=== PATIENT | male | born 1940 | race Two or more races ===

== ENCOUNTER 2017-07-17 21:00 | Inpatient (IN) | payer OTHER, MEDICARE ==
[~2017-07-17] VITALS: Ht 170.2 cm; Wt 88.8 kg
[~2017-07-17 21:00] MED LIST: ALBU90OI6 INH; AMLO5 PO; ASPI81CH PO; ATECHL PO; FLUO10 PO; Glucophage PO; HYDACE5 PO; IPRAOI INH; LISI20 PO; MONT10T PO; NIAC500ER PO; SIMV40 PO; TEMA30 PO; TOCO400 PO
[2017-07-17 21:41] LABS: BASOPHILS ABSOLUTE AUTO 0.05 K/mm3 (0.00-0.23); BASOPHILS PERCENT AUTO 1 % (0-2); EOSINOPHILS ABSOLUTE AUTO 0.52 K/mm3 (0.00-0.68); EOSINOPHILS PERCENT AUTO 8 % (0-6); Hematocrit 35.9 % (37.0-53.0); Hemoglobin 11.9 g/dL (13.5-17.5); IMMATURE GRAN ABSOLUTE AUTO 0.04 K/mm3 (0.00-0.10); IMMATURE GRAN PERCENT AUTO 1 % (0-1); LYMPHOCYTES ABSOLUTE AUTO 1.34 K/mm3 (0.84-5.20); LYMPHOCYTES PERCENT AUTO 21 % (21-46); MONOCYTES ABSOLUTE AUTO 0.82 K/mm3 (0.16-1.47); MONOCYTES PERCENT AUTO 13 % (4-13); Mean Corpuscular HGB 29.5 pg (26.0-34.0); Mean Corpuscular HGB Conc 33.1 g/dL (31.5-36.5); Mean Corpuscular Volume 89 fL (80-100); Mean Platelet Volume 11.1 fL (9.1-12.4); NEUTROPHILS ABSOLUTE AUTO 3.58 K/mm3 (1.96-9.15); NEUTROPHILS PERCENT AUTO 56 % (41-73); Platelet Count 201 K/mm3 (150-400); RDW Coefficient Variation 13.8 % (11.7-14.2); RDW Standard Deviation 44.3 fL (35.1-46.3); Red Blood Cell Count 4.03 M/mm3 (4.30-5.90); White Blood Cell Count 6.35 K/mm3 (4.00-11.30)
[2017-07-17 22:01] LABS: Albumin, Blood 3.2 g/dL (3.4-5.0); Albumin/Globulin Ratio 0.9 (0.8-1.8); Bilirubin, Total 0.3 mg/dL (0.1-1.0); Bun/Creatinine Ratio 22.2 (12.0-20.0); Calcium, Blood 8.7 mg/dL (8.5-10.1); Creatinine, Blood 1.35 mg/dL (0.60-1.20); Globulin, Blood 3.7 g/dL (2.2-4.0); Total Protein, Blood 6.9 g/dL (6.4-8.2); Troponin I 0.019 ng/mL (0.000-0.040)
[2017-07-18 00:29] LABS: Magnesium, Blood 1.7 mg/dL (1.6-2.4)
[2017-07-18 02:31] LABS: PCO2 Arterial 55.2 mmHg (35-45); PO2 Arterial 155 mmHg (80-100); pH Blood Arterial 7.22 (7.35-7.45)
[2017-07-18 05:17] LABS: BASOPHILS ABSOLUTE AUTO 0.04 K/mm3 (0.00-0.23); BASOPHILS PERCENT AUTO 1 % (0-2); EOSINOPHILS ABSOLUTE AUTO 0.01 K/mm3 (0.00-0.68); EOSINOPHILS PERCENT AUTO 0 % (0-6); Hematocrit 36.8 % (37.0-53.0); Hemoglobin 12.1 g/dL (13.5-17.5); IMMATURE GRAN ABSOLUTE AUTO 0.05 K/mm3 (0.00-0.10); IMMATURE GRAN PERCENT AUTO 1 % (0-1); LYMPHOCYTES ABSOLUTE AUTO 0.56 K/mm3 (0.84-5.20); LYMPHOCYTES PERCENT AUTO 8 % (21-46); MONOCYTES ABSOLUTE AUTO 0.15 K/mm3 (0.16-1.47); MONOCYTES PERCENT AUTO 2 % (4-13); Mean Corpuscular HGB 28.9 pg (26.0-34.0); Mean Corpuscular HGB Conc 32.9 g/dL (31.5-36.5); Mean Corpuscular Volume 88 fL (80-100); Mean Platelet Volume 10.8 fL (9.1-12.4); NEUTROPHILS ABSOLUTE AUTO 6.14 K/mm3 (1.96-9.15); NEUTROPHILS PERCENT AUTO 88 % (41-73); Platelet Count 211 K/mm3 (150-400); RDW Coefficient Variation 13.8 % (11.7-14.2); Red Blood Cell Count 4.18 M/mm3 (4.30-5.90); White Blood Cell Count 6.95 K/mm3 (4.00-11.30)
[2017-07-18 05:37] LABS: Albumin, Blood 3.3 g/dL (3.4-5.0); Anion Gap 8 mmol/L (6-16); Blood Urea Nitrogen 31 mg/dL (8-24); Bun/Creatinine Ratio 24.4 (12.0-20.0); CO2, Blood 22 mmol/L (21-32); Chloride, Blood 109 mmol/L (98-108); Creatinine, Blood 1.27 mg/dL (0.60-1.20); Glomerular Filtration Rate 59 (60-); Glucose, Blood 389 mg/dL (70-99); Phosphorus, Blood 3.2 mg/dL (2.5-4.9); Potassium, Blood 5.1 mmol/L (3.5-5.5); Sodium, Blood 139 mmol/L (136-145)
[2017-07-18 08:53] LABS: PCO2 Arterial 32 mmHg (35-45); PO2 Arterial 95 mmHg (80-100)
[2017-07-18 12:15] LABS: Glucose, Blood 501 mg/dL (70-99)
[2017-07-19 10:20] LABS: BASOPHILS ABSOLUTE AUTO 0.02 K/mm3 (0.00-0.23); BASOPHILS PERCENT AUTO 0 % (0-2); EOSINOPHILS PERCENT AUTO 0 % (0-6); Hematocrit 36.7 % (37.0-53.0); IMMATURE GRAN ABSOLUTE AUTO 0.18 K/mm3 (0.00-0.10); IMMATURE GRAN PERCENT AUTO 1 % (0-1); LYMPHOCYTES ABSOLUTE AUTO 0.82 K/mm3 (0.84-5.20); LYMPHOCYTES PERCENT AUTO 5 % (21-46); MONOCYTES ABSOLUTE AUTO 1.78 K/mm3 (0.16-1.47); MONOCYTES PERCENT AUTO 11 % (4-13); Mean Corpuscular HGB 28.6 pg (26.0-34.0); Mean Corpuscular HGB Conc 32.7 g/dL (31.5-36.5); Mean Corpuscular Volume 88 fL (80-100); Mean Platelet Volume 11.1 fL (9.1-12.4); NEUTROPHILS PERCENT AUTO 83 % (41-73); Platelet Count 244 K/mm3 (150-400); RDW Coefficient Variation 13.9 % (11.7-14.2); RDW Standard Deviation 43.5 fL (35.1-46.3); Red Blood Cell Count 4.19 M/mm3 (4.30-5.90)
[2017-07-19 10:36] LABS: International Normalized Ratio 1.13; Prothrombin Time Results 11.8 Sec (9.7-11.5)
[2017-07-19 10:39] LABS: Bun/Creatinine Ratio 37.1 (12.0-20.0); Creatinine, Blood 1.32 mg/dL (0.60-1.20); Potassium, Blood 4.4 mmol/L (3.5-5.5)
[2017-07-19 10:57] LABS: Troponin I 26.7 ng/mL (0.000-0.040)
[2017-07-19 16:56] LABS: PCO2 Arterial 36.6 mmHg (35-45); pH Blood Arterial 7.39 (7.35-7.45)
[2017-07-19 23:18] LABS: Influenza A Negative (NEGATIVE); Influenza B Negative (NEGATIVE)
[2017-07-20 03:43] LABS: BASOPHILS ABSOLUTE AUTO 0.02 K/mm3 (0.00-0.23); BASOPHILS PERCENT AUTO 0 % (0-2); EOSINOPHILS PERCENT AUTO 0 % (0-6); Hematocrit 34.2 % (37.0-53.0); Hemoglobin 11.5 g/dL (13.5-17.5); IMMATURE GRAN ABSOLUTE AUTO 0.08 K/mm3 (0.00-0.10); IMMATURE GRAN PERCENT AUTO 1 % (0-1); LYMPHOCYTES PERCENT AUTO 6 % (21-46); MONOCYTES ABSOLUTE AUTO 1.37 K/mm3 (0.16-1.47); MONOCYTES PERCENT AUTO 11 % (4-13); Mean Corpuscular HGB 29.2 pg (26.0-34.0); Mean Corpuscular HGB Conc 33.6 g/dL (31.5-36.5); Mean Corpuscular Volume 87 fL (80-100); Mean Platelet Volume 11.5 fL (9.1-12.4); NEUTROPHILS ABSOLUTE AUTO 10.34 K/mm3 (1.96-9.15); NEUTROPHILS PERCENT AUTO 83 % (41-73); Platelet Count 227 K/mm3 (150-400); RDW Standard Deviation 44.1 fL (35.1-46.3); Red Blood Cell Count 3.94 M/mm3 (4.30-5.90); White Blood Cell Count 12.51 K/mm3 (4.00-11.30)
[2017-07-20 04:14] LABS: Albumin, Blood 3.1 g/dL (3.4-5.0); Albumin/Globulin Ratio 0.8 (0.8-1.8); Bilirubin, Total 0.6 mg/dL (0.1-1.0); Bun/Creatinine Ratio 36.9 (12.0-20.0); Creatinine, Blood 1.41 mg/dL (0.60-1.20); Globulin, Blood 3.7 g/dL (2.2-4.0); Potassium, Blood 4.5 mmol/L (3.5-5.5); Total Protein, Blood 6.8 g/dL (6.4-8.2)
[2017-07-21 05:23] LABS: BASOPHILS ABSOLUTE AUTO 0.01 K/mm3 (0.00-0.23); BASOPHILS PERCENT AUTO 0 % (0-2); EOSINOPHILS PERCENT AUTO 0 % (0-6); Hemoglobin 11.5 g/dL (13.5-17.5); IMMATURE GRAN ABSOLUTE AUTO 0.06 K/mm3 (0.00-0.10); IMMATURE GRAN PERCENT AUTO 1 % (0-1); LYMPHOCYTES ABSOLUTE AUTO 0.53 K/mm3 (0.84-5.20); LYMPHOCYTES PERCENT AUTO 6 % (21-46); MONOCYTES ABSOLUTE AUTO 0.99 K/mm3 (0.16-1.47); MONOCYTES PERCENT AUTO 12 % (4-13); Mean Corpuscular HGB 29.3 pg (26.0-34.0); Mean Corpuscular HGB Conc 33.8 g/dL (31.5-36.5); Mean Corpuscular Volume 87 fL (80-100); Mean Platelet Volume 11.4 fL (9.1-12.4); NEUTROPHILS ABSOLUTE AUTO 6.96 K/mm3 (1.96-9.15); NEUTROPHILS PERCENT AUTO 81 % (41-73); Platelet Count 197 K/mm3 (150-400); RDW Coefficient Variation 13.5 % (11.7-14.2); RDW Standard Deviation 42.5 fL (35.1-46.3); Red Blood Cell Count 3.93 M/mm3 (4.30-5.90); White Blood Cell Count 8.55 K/mm3 (4.00-11.30)
[2017-07-21 05:59] LABS: Albumin, Blood 2.8 g/dL (3.4-5.0); Albumin/Globulin Ratio 0.7 (0.8-1.8); Bilirubin, Total 0.4 mg/dL (0.1-1.0); Bun/Creatinine Ratio 43.2 (12.0-20.0); Calcium, Blood 8.9 mg/dL (8.5-10.1); Creatinine, Blood 1.69 mg/dL (0.60-1.20); Globulin, Blood 3.9 g/dL (2.2-4.0); Potassium, Blood 4.7 mmol/L (3.5-5.5); Total Protein, Blood 6.7 g/dL (6.4-8.2)
[2017-07-22 04:18] LABS: Bun/Creatinine Ratio 46.4 (12.0-20.0); Calcium, Blood 8.7 mg/dL (8.5-10.1); Creatinine, Blood 1.81 mg/dL (0.60-1.20); Potassium, Blood 4.1 mmol/L (3.5-5.5)
[2017-07-22 21:05] LABS: Glucose, Blood 517 mg/dL (70-99)
[2017-07-23 04:51] LABS: Hematocrit 36.3 % (37.0-53.0); Hemoglobin 12.2 g/dL (13.5-17.5)
[2017-07-23 05:16] LABS: Magnesium, Blood 2.3 mg/dL (1.6-2.4)
[2017-07-23 05:18] LABS: Albumin, Blood 2.8 g/dL (3.4-5.0); Anion Gap 10 mmol/L (6-16); Blood Urea Nitrogen 76 mg/dL (8-24); CO2, Blood 24 mmol/L (21-32); Calcium, Blood 8.7 mg/dL (8.5-10.1); Chloride, Blood 101 mmol/L (98-108); Creatinine, Blood 1.52 mg/dL (0.60-1.20); Glomerular Filtration Rate 48 (60-); Glucose, Blood 342 mg/dL (70-99); Phosphorus, Blood 3.9 mg/dL (2.5-4.9); Potassium, Blood 4.5 mmol/L (3.5-5.5); Sodium, Blood 135 mmol/L (136-145)
[2017-07-24 05:06] LABS: BASOPHILS ABSOLUTE AUTO 0.02 K/mm3 (0.00-0.23); BASOPHILS PERCENT AUTO 0 % (0-2); EOSINOPHILS ABSOLUTE AUTO 0.76 K/mm3 (0.00-0.68); EOSINOPHILS PERCENT AUTO 9 % (0-6); Hematocrit 38.9 % (37.0-53.0); IMMATURE GRAN ABSOLUTE AUTO 0.05 K/mm3 (0.00-0.10); IMMATURE GRAN PERCENT AUTO 1 % (0-1); LYMPHOCYTES ABSOLUTE AUTO 1.14 K/mm3 (0.84-5.20); LYMPHOCYTES PERCENT AUTO 13 % (21-46); MONOCYTES ABSOLUTE AUTO 1.18 K/mm3 (0.16-1.47); MONOCYTES PERCENT AUTO 14 % (4-13); Mean Corpuscular HGB 28.5 pg (26.0-34.0); Mean Corpuscular HGB Conc 33.4 g/dL (31.5-36.5); Mean Corpuscular Volume 85 fL (80-100); Mean Platelet Volume 11.5 fL (9.1-12.4); NEUTROPHILS PERCENT AUTO 64 % (41-73); Platelet Count 242 K/mm3 (150-400); RDW Coefficient Variation 13.2 % (11.7-14.2); RDW Standard Deviation 40.7 fL (35.1-46.3); Red Blood Cell Count 4.56 M/mm3 (4.30-5.90); White Blood Cell Count 8.75 K/mm3 (4.00-11.30)
[2017-07-24 05:20] LABS: Anion Gap 8 mmol/L (6-16); Blood Urea Nitrogen 57 mg/dL (8-24); Bun/Creatinine Ratio 41.9 (12.0-20.0); CO2, Blood 26 mmol/L (21-32); Calcium, Blood 9.1 mg/dL (8.5-10.1); Chloride, Blood 99 mmol/L (98-108); Creatinine, Blood 1.36 mg/dL (0.60-1.20); Glomerular Filtration Rate 54 (60-); Glucose, Blood 362 mg/dL (70-99); Magnesium, Blood 1.8 mg/dL (1.6-2.4); Potassium, Blood 5.2 mmol/L (3.5-5.5); Sodium, Blood 133 mmol/L (136-145)
[2017-07-24] MEDS ORDERED: TIOT18 INH (16:45)
[2017-07-24] MEDS ORDERED: LOSA50 PO (16:45)
[2017-07-24] MEDS ORDERED: Novolog Fl100 UNIT/1 INJ (16:47)
[2017-07-24] MEDS ORDERED: LEVEMIR FL100 UNIT/1 SC (16:48)
[2017-07-24] MEDS ORDERED: CLOP75 PO (16:49)
[2017-07-24] MEDS ORDERED: FURO40 PO (16:49)
[2017-07-24] MEDS ORDERED: METO50ER PO (16:50)
[2017-07-24] MEDS ORDERED: POTA10T PO (16:51)
[2017-07-24] MEDS ORDERED: Nitrostat0.4 MG SL (16:52)
[2018-01-27] MEDS ORDERED: DULO60 PO (12:13)
[2018-01-27] MEDS ORDERED: Isosorbide Mono30 MG PO (12:15)
[2018-02-26] MEDS ORDERED: NEBI5 PO (09:41)
[2018-04-23] MEDS ORDERED: Lantus100 UNIT/1 SC (18:27)
[2018-04-23] MEDS ORDERED: INSULANPEN SC (18:28)
[2018-04-23] MEDS ORDERED: TOCO1000 PO (18:33)
[2018-04-23] MEDS ORDERED: MEGARED OMEGA-1 EAC1 PO (18:34)
[2018-04-24] MEDS ORDERED: Humalog100 UNIT/3 SC ×2 (13:03)
[2018-04-24] MEDS ORDERED: INSULANPEN SC (13:17)
== END 2017-07-24 16:59 | disposition home or self-care (01) | DRG 280 ==
LOC: ER 21:00 → MEDS 07-18 00:12 → PCU 07-18 00:12 → MEDS 07-22 13:45
PROVIDERS: Emergency Medicine; Family Medicine; Internal Medicine; Internal Medicine Interventional Cardiology; Internal Medicine Nephrology
PROC: B2161ZZ Fluoroscopy of Right and Left Heart using Low Osmolar Contrast (ICD-10-PCS; principal; 2017-07-19)
PROC: B2111ZZ Fluoroscopy of Multiple Coronary Arteries using Low Osmolar Contrast (ICD-10-PCS; 2017-07-19)
PROC: 5A09457 Assistance with Respiratory Ventilation, 24-96 Consecutive Hours, Continuous Positive Airway Pressure (ICD-10-PCS; 2017-07-19)
DX: I21.4 Non-ST elevation (NSTEMI) myocardial infarction (principal); J96.02 Acute respiratory failure with hypercapnia; I50.33 Acute on chronic diastolic (congestive) heart failure; N17.9 Acute kidney failure, unspecified; J96.01 Acute respiratory failure with hypoxia; J12.1 Respiratory syncytial virus pneumonia; E88.09 Other disorders of plasma-protein metabolism, not elsewhere classified; I07.1 Rheumatic tricuspid insufficiency; I13.0 Hypertensive heart and chronic kidney disease with heart failure and stage 1 through stage 4 chronic kidney disease, or unspecified chronic kidney disease; J44.1 Chronic obstructive pulmonary disease with (acute) exacerbation; E87.1 Hypo-osmolality and hyponatremia; J44.0 Chronic obstructive pulmonary disease with (acute) lower respiratory infection; I27.29 Other secondary pulmonary hypertension; E11.65 Type 2 diabetes mellitus with hyperglycemia; E11.22 Type 2 diabetes mellitus with diabetic chronic kidney disease; N18.3 Chronic kidney disease, stage 3 (moderate); E78.5 Hyperlipidemia, unspecified; I25.10 Atherosclerotic heart disease of native coronary artery without angina pectoris; G47.33 Obstructive sleep apnea (adult) (pediatric); D63.1 Anemia in chronic kidney disease; I27.81 Cor pulmonale (chronic); I25.2 Old myocardial infarction; Z95.1 Presence of aortocoronary bypass graft; Z87.891 Personal history of nicotine dependence; Z79.82 Long term (current) use of aspirin; Z79.899 Other long term (current) drug therapy; Z95.5 Presence of coronary angioplasty implant and graft; Z88.5 Allergy status to narcotic agent; Z88.8 Allergy status to other drugs, medicaments and biological substances; Z79.84 Long term (current) use of oral hypoglycemic drugs
CPT/HCPCS: 36415; 36600; 51702; 71045; 71046; 76770; 80048; 80053; 80069; 82803; 82947; 83735; 83880; 84484; 85014; 85018; 85025; 85610; 85730; 87804; 87807; 93005; 93010; 93306; 93455; 94640; 94660; 94761; 94762; 97161; 97165; 97530; 99152; 99153; 99285; C1760; C1769; G8978; G8979; G8980; G8987; G8988; G8989; J0696; J1100; J1644; J1815; J1940; J2250; J2270; J2920; J2930; J3010; J7030; J7040; Q9967

== ENCOUNTER → 2017-08-05 | Outpatient (CLI) | payer MEDICARE, OTHER ==
[~2017-08-05] MED LIST changes: +ATOR40TA PO; +Amiodarone HCl200 MG PO; +CALCIUM + VITAMIN D PO; +CHOL10002 PO; +CLOP75 PO; +Cod Liver Oil1 EAC2 PO; +DILT60 PO; +DULO60 PO; +FURO40 PO; +Fish Oil 10001000 MG PO; +Humalog100 UNIT/3 SC; +INSULANPEN SC; +Isosorbide Mono30 MG PO; +LEVEMIR FL100 UNIT/1 SC; +LORATADINE PO; +LOSA50 PO; +Lantus100 UNIT/1 SC; +MAGOXI400 PO; +MEGARED OMEGA-1 EAC1 PO; +METO50ER PO; +MOME220I INH; +NEBI5 PO; +Nitrostat0.4 MG SL; +Novolog Fl100 UNIT/1 INJ; +PANT40 PO; +POTA10T PO; +TEMA7.5 PO; +TIOT18 INH; +TOCO1000 PO; +TRAM50 PO; +XARELTO15 MG PO
[2017-08-05 11:50] LABS: Protein, Urine Quantitative 14.3 mg/dL (0.0-11.9)
[2017-08-05 11:52] LABS: Microalbumin, Urine Quant. 56.3 mg/L (0.000-20.000)
== END | disposition home or self-care (01) ==
LOC: LAB EV 09:32
PROVIDERS: Internal Medicine Nephrology
DX: N18.3 Chronic kidney disease, stage 3 (moderate) (principal); D63.1 Anemia in chronic kidney disease; N25.81 Secondary hyperparathyroidism of renal origin; E55.9 Vitamin D deficiency, unspecified; D51.8 Other vitamin B12 deficiency anemias; D52.8 Other folate deficiency anemias; D50.9 Iron deficiency anemia, unspecified
CPT/HCPCS: 81050; 82043; 84156

== ENCOUNTER 2018-01-27 11:45 | Inpatient (IN) | payer OTHER, MEDICARE ==
[~2018-01-27] VITALS: Ht 170.2 cm; Wt 80.2 kg
[~2018-01-27 11:45] MED LIST changes: -ATOR40TA PO; -Amiodarone HCl200 MG PO; -CALCIUM + VITAMIN D PO; -CHOL10002 PO; -Cod Liver Oil1 EAC2 PO; -DILT60 PO; -DULO60 PO; -Fish Oil 10001000 MG PO; -Glucophage PO; -Humalog100 UNIT/3 SC; -INSULANPEN SC; -Isosorbide Mono30 MG PO; -LORATADINE PO; -Lantus100 UNIT/1 SC; -MAGOXI400 PO; -MEGARED OMEGA-1 EAC1 PO; +METF850 PO; -MOME220I INH; -NEBI5 PO; -PANT40 PO; -TEMA7.5 PO; -TOCO1000 PO; -TRAM50 PO; -XARELTO15 MG PO
[2018-01-27] MEDS ORDERED: ATOR40TA PO (12:12)
[2018-01-27] MEDS ORDERED: DULO30 PO (12:13)
[2018-01-27 12:15] LABS: BASOPHILS ABSOLUTE AUTO 0.06 K/mm3 (0.00-0.23); BASOPHILS PERCENT AUTO 1 % (0-2); EOSINOPHILS ABSOLUTE AUTO 0.69 K/mm3 (0.00-0.68); EOSINOPHILS PERCENT AUTO 9 % (0-6); Hematocrit 37.4 % (37.0-53.0); Hemoglobin 12.1 g/dL (13.5-17.5); IMMATURE GRAN ABSOLUTE AUTO 0.02 K/mm3 (0.00-0.10); IMMATURE GRAN PERCENT AUTO 0 % (0-1); LYMPHOCYTES ABSOLUTE AUTO 1.66 K/mm3 (0.84-5.20); LYMPHOCYTES PERCENT AUTO 23 % (21-46); MONOCYTES ABSOLUTE AUTO 0.86 K/mm3 (0.16-1.47); MONOCYTES PERCENT AUTO 12 % (4-13); Mean Corpuscular HGB 26.9 pg (26.0-34.0); Mean Corpuscular HGB Conc 32.4 g/dL (31.5-36.5); Mean Corpuscular Volume 83 fL (80-100); Mean Platelet Volume 10.9 fL (9.1-12.4); NEUTROPHILS ABSOLUTE AUTO 4.06 K/mm3 (1.96-9.15); NEUTROPHILS PERCENT AUTO 55 % (41-73); Platelet Count 239 K/mm3 (150-400); RDW Coefficient Variation 14.9 % (11.7-14.2); White Blood Cell Count 7.35 K/mm3 (4.00-11.30)
[2018-01-27] MEDS ORDERED: ISOMON20 PO (12:15)
[2018-01-27] MEDS ORDERED: MAGOXI400 PO (12:16)
[2018-01-27] MEDS ORDERED: PANT40 PO (12:17)
[2018-01-27 12:31] LABS: Anion Gap 7 mmol/L (6-16); Blood Urea Nitrogen 23 mg/dL (8-24); CO2, Blood 25 mmol/L (21-32); Calcium, Blood 8.5 mg/dL (8.5-10.1); Chloride, Blood 108 mmol/L (98-108); Creatinine, Blood 1.21 mg/dL (0.60-1.20); Glomerular Filtration Rate >60 (60-); Glucose, Blood 192 mg/dL (70-99); Sodium, Blood 140 mmol/L (136-145); Troponin I 0.265 ng/mL (0.000-0.040)
[2018-01-27 12:39] LABS: International Normalized Ratio 1.14; Prothrombin Time Results 11.7 Sec (9.7-11.5)
[2018-01-27 22:05] LABS: Magnesium, Blood 1.6 mg/dL (1.6-2.4)
[2018-01-28 06:14] LABS: Hematocrit 39.6 % (37.0-53.0); Hemoglobin 13.1 g/dL (13.5-17.5); Mean Corpuscular HGB 27.5 pg (26.0-34.0); Mean Corpuscular HGB Conc 33.1 g/dL (31.5-36.5); Mean Corpuscular Volume 83 fL (80-100); Mean Platelet Volume 10.4 fL (9.1-12.4); Platelet Count 214 K/mm3 (150-400); RDW Coefficient Variation 14.7 % (11.7-14.2); RDW Standard Deviation 44.5 fL (35.1-46.3); Red Blood Cell Count 4.77 M/mm3 (4.30-5.90); White Blood Cell Count 7.28 K/mm3 (4.00-11.30)
[2018-01-28 06:37] LABS: Alanine Aminotransfer (ALT/SGP 41 U/L (12-78); Albumin, Blood 3.3 g/dL (3.4-5.0); Albumin/Globulin Ratio 0.9 (0.8-1.8); Alk Phos 109 U/L (50-136); Anion Gap 9 mmol/L (6-16); Aspartate Aminotrans (AST/SGOT 39 U/L (12-37); Bilirubin, Total 0.5 mg/dL (0.1-1.0); Blood Urea Nitrogen 22 mg/dL (8-24); Bun/Creatinine Ratio 17.7 (12.0-20.0); CO2, Blood 25 mmol/L (21-32); Calcium, Blood 9.1 mg/dL (8.5-10.1); Chloride, Blood 105 mmol/L (98-108); Creatinine, Blood 1.24 mg/dL (0.60-1.20); Globulin, Blood 3.5 g/dL (2.2-4.0); Glomerular Filtration Rate >60 (60-); Glucose, Blood 203 mg/dL (70-99); Potassium, Blood 4.3 mmol/L (3.5-5.5); Sodium, Blood 139 mmol/L (136-145); Total Protein, Blood 6.8 g/dL (6.4-8.2)
[2018-01-28 06:45] LABS: Digoxin (Lanoxin) 1.37 ug/mL (0.80-2.00)
[2018-01-28] MEDS ORDERED: CALCIUM + VITAMIN D PO (11:42)
[2018-01-28] MEDS ORDERED: CHOL10002 PO (11:43)
[2018-01-28] MEDS ORDERED: Cod Liver Oil1 EAC2 PO (11:44)
[2018-01-28] MEDS ORDERED: Fish Oil 10001000 MG PO (11:45)
[2018-01-28] MEDS ORDERED: FURO40 PO (11:45)
[2018-01-28] MEDS ORDERED: LORATADINE PO (11:49)
[2018-01-28] MEDS ORDERED: MOME220I INH (11:52)
[2018-01-28] MEDS ORDERED: INSULANPEN SC (13:41)
[2018-01-29 00:23] LABS: BASOPHILS ABSOLUTE AUTO 0.06 K/mm3 (0.00-0.23); BASOPHILS PERCENT AUTO 1 % (0-2); EOSINOPHILS ABSOLUTE AUTO 0.72 K/mm3 (0.00-0.68); EOSINOPHILS PERCENT AUTO 11 % (0-6); IMMATURE GRAN ABSOLUTE AUTO 0.01 K/mm3 (0.00-0.10); IMMATURE GRAN PERCENT AUTO 0 % (0-1); LYMPHOCYTES ABSOLUTE AUTO 0.85 K/mm3 (0.84-5.20); LYMPHOCYTES PERCENT AUTO 13 % (21-46); MONOCYTES ABSOLUTE AUTO 0.84 K/mm3 (0.16-1.47); MONOCYTES PERCENT AUTO 13 % (4-13); Mean Corpuscular HGB 27.4 pg (26.0-34.0); Mean Corpuscular HGB Conc 33.3 g/dL (31.5-36.5); Mean Corpuscular Volume 82 fL (80-100); Mean Platelet Volume 10.4 fL (9.1-12.4); NEUTROPHILS ABSOLUTE AUTO 3.96 K/mm3 (1.96-9.15); NEUTROPHILS PERCENT AUTO 62 % (41-73); Platelet Count 231 K/mm3 (150-400); RDW Coefficient Variation 14.5 % (11.7-14.2); RDW Standard Deviation 43.6 fL (35.1-46.3); Red Blood Cell Count 4.74 M/mm3 (4.30-5.90); White Blood Cell Count 6.44 K/mm3 (4.00-11.30)
[2018-01-29 00:37] LABS: Creatinine, Blood 1.61 mg/dL (0.60-1.20); Potassium, Blood 4.2 mmol/L (3.5-5.5)
[2018-01-30 05:03] LABS: Bun/Creatinine Ratio 23.9 (12.0-20.0); Calcium, Blood 8.8 mg/dL (8.5-10.1); Creatinine, Blood 1.63 mg/dL (0.60-1.20); Potassium, Blood 4.4 mmol/L (3.5-5.5)
[2018-01-31] MEDS ORDERED: DILT60 PO (17:31)
[2018-01-31] MEDS ORDERED: XARELTO15 MG PO (17:34)
== END 2018-01-31 18:00 | disposition home or self-care (01) | DRG 310 ==
LOC: ER 11:45 → PCU 15:21
PROVIDERS: Emergency Medicine; Family Medicine; Student in an Organized Health Care Education/Training Program
DX: I48.91 Unspecified atrial fibrillation (principal); E11.65 Type 2 diabetes mellitus with hyperglycemia; Z79.4 Long term (current) use of insulin; I25.10 Atherosclerotic heart disease of native coronary artery without angina pectoris; I10 Essential (primary) hypertension; K21.9 Gastro-esophageal reflux disease without esophagitis; E11.319 Type 2 diabetes mellitus with unspecified diabetic retinopathy without macular edema; F17.210 Nicotine dependence, cigarettes, uncomplicated; J44.9 Chronic obstructive pulmonary disease, unspecified; E78.5 Hyperlipidemia, unspecified; G47.33 Obstructive sleep apnea (adult) (pediatric); F32.9 Major depressive disorder, single episode, unspecified; F43.10 Post-traumatic stress disorder, unspecified
CPT/HCPCS: 36415; 71046; 80048; 80053; 80162; 82947; 83735; 84443; 84484; 85025; 85027; 85610; 85730; 93005; 93010; 94640; 94762; 96365; 96375; 99285-25; J1160; J1644; J1815

== ENCOUNTER 2018-02-26 02:51 | Inpatient (IN) | payer MEDICARE, OTHER ==
[~2018-02-26] VITALS: Ht 170.2 cm; Wt 86.6 kg
[~2018-02-26 02:51] MED LIST changes: +ATOR40TA PO; +CALCIUM + VITAMIN D PO; +CHOL10002 PO; +Cod Liver Oil1 EAC2 PO; +DILT60 PO; +DULO30 PO; +Fish Oil 10001000 MG PO; +INSULANPEN SC; +ISOMON20 PO; +LORATADINE PO; +MAGOXI400 PO; +MOME220I INH; +PANT40 PO; +XARELTO15 MG PO
[2018-02-26 03:24] LABS: BASOPHILS ABSOLUTE AUTO 0.06 K/mm3 (0.00-0.23); BASOPHILS PERCENT AUTO 1 % (0-2); EOSINOPHILS ABSOLUTE AUTO 0.64 K/mm3 (0.00-0.68); EOSINOPHILS PERCENT AUTO 9 % (0-6); Hemoglobin 12.1 g/dL (13.5-17.5); IMMATURE GRAN ABSOLUTE AUTO 0.03 K/mm3 (0.00-0.10); IMMATURE GRAN PERCENT AUTO 0 % (0-1); LYMPHOCYTES ABSOLUTE AUTO 2.07 K/mm3 (0.84-5.20); LYMPHOCYTES PERCENT AUTO 29 % (21-46); MONOCYTES ABSOLUTE AUTO 0.86 K/mm3 (0.16-1.47); MONOCYTES PERCENT AUTO 12 % (4-13); Mean Corpuscular HGB 27.3 pg (26.0-34.0); Mean Corpuscular HGB Conc 32.7 g/dL (31.5-36.5); Mean Corpuscular Volume 84 fL (80-100); Mean Platelet Volume 10.5 fL (9.1-12.4); NEUTROPHILS ABSOLUTE AUTO 3.61 K/mm3 (1.96-9.15); NEUTROPHILS PERCENT AUTO 50 % (41-73); Platelet Count 288 K/mm3 (150-400); RDW Coefficient Variation 14.6 % (11.7-14.2); RDW Standard Deviation 44.2 fL (35.1-46.3); Red Blood Cell Count 4.43 M/mm3 (4.30-5.90); White Blood Cell Count 7.27 K/mm3 (4.00-11.30)
[2018-02-26 03:46] LABS: Albumin, Blood 3.4 g/dL (3.4-5.0); Albumin/Globulin Ratio 0.9 (0.8-1.8); Bilirubin, Total 0.4 mg/dL (0.1-1.0); Bun/Creatinine Ratio 17.4 (12.0-20.0); Calcium, Blood 8.8 mg/dL (8.5-10.1); Creatinine, Blood 1.49 mg/dL (0.60-1.20); Globulin, Blood 3.7 g/dL (2.2-4.0); Potassium, Blood 4.5 mmol/L (3.5-5.5); Total Protein, Blood 7.1 g/dL (6.4-8.2); Troponin I 0.079 ng/mL (0.000-0.040)
[2018-02-26] MEDS ORDERED: TEMA7.5 PO (09:40)
[2018-02-26] MEDS ORDERED: TRAM50 PO (09:40)
[2018-02-26] MEDS ORDERED: NEBI10 PO (09:41)
== END 2018-02-26 16:58 | disposition home or self-care (01) | DRG 310 ==
LOC: ER 02:51 → PCU 06:17
PROVIDERS: Emergency Medicine
PROC: 5A2204Z Restoration of Cardiac Rhythm, Single (ICD-10-PCS; principal; 2018-02-26)
DX: I48.92 Unspecified atrial flutter (principal); I25.10 Atherosclerotic heart disease of native coronary artery without angina pectoris; I10 Essential (primary) hypertension; E11.65 Type 2 diabetes mellitus with hyperglycemia; G47.33 Obstructive sleep apnea (adult) (pediatric); J44.9 Chronic obstructive pulmonary disease, unspecified; E78.00 Pure hypercholesterolemia, unspecified; D75.1 Secondary polycythemia; Z68.29 Body mass index [BMI] 29.0-29.9, adult; E66.9 Obesity, unspecified; Z95.1 Presence of aortocoronary bypass graft; Z88.6 Allergy status to analgesic agent; Z88.5 Allergy status to narcotic agent; Z88.8 Allergy status to other drugs, medicaments and biological substances; Z87.891 Personal history of nicotine dependence; Z79.84 Long term (current) use of oral hypoglycemic drugs; Z79.4 Long term (current) use of insulin; Z79.02 Long term (current) use of antithrombotics/antiplatelets; Z79.899 Other long term (current) drug therapy
CPT/HCPCS: 36415; 36416; 71046; 80053; 82947; 84484; 85025; 93005; 93010; J1815; J2250; J3010

== ENCOUNTER 2018-03-15 03:27 | Inpatient (IN) | payer MEDICARE, OTHER ==
[~2018-03-15] VITALS: Ht 170.2 cm; Wt 82.1 kg
[~2018-03-15 03:27] MED LIST changes: +Glucophage PO; -ISOMON20 PO; +Isosorbide Mono30 MG PO; -METF850 PO; +NEBI5 PO; +TEMA7.5 PO; +TRAM50 PO
[2018-03-15 04:19] LABS: BASOPHILS ABSOLUTE AUTO 0.06 K/mm3 (0.00-0.23); BASOPHILS PERCENT AUTO 1 % (0-2); EOSINOPHILS ABSOLUTE AUTO 0.66 K/mm3 (0.00-0.68); EOSINOPHILS PERCENT AUTO 9 % (0-6); Hematocrit 39.2 % (37.0-53.0); Hemoglobin 12.7 g/dL (13.5-17.5); IMMATURE GRAN ABSOLUTE AUTO 0.03 K/mm3 (0.00-0.10); IMMATURE GRAN PERCENT AUTO 0 % (0-1); LYMPHOCYTES ABSOLUTE AUTO 1.61 K/mm3 (0.84-5.20); LYMPHOCYTES PERCENT AUTO 23 % (21-46); MONOCYTES ABSOLUTE AUTO 0.94 K/mm3 (0.16-1.47); MONOCYTES PERCENT AUTO 13 % (4-13); Mean Corpuscular HGB 27.4 pg (26.0-34.0); Mean Corpuscular HGB Conc 32.4 g/dL (31.5-36.5); Mean Corpuscular Volume 85 fL (80-100); Mean Platelet Volume 10.7 fL (9.1-12.4); NEUTROPHILS ABSOLUTE AUTO 3.82 K/mm3 (1.96-9.15); NEUTROPHILS PERCENT AUTO 54 % (41-73); Platelet Count 226 K/mm3 (150-400); RDW Coefficient Variation 14.2 % (11.7-14.2); RDW Standard Deviation 43.4 fL (35.1-46.3); Red Blood Cell Count 4.64 M/mm3 (4.30-5.90); White Blood Cell Count 7.12 K/mm3 (4.00-11.30)
[2018-03-15 04:46] LABS: Albumin, Blood 3.6 g/dL (3.4-5.0); Albumin/Globulin Ratio 0.9 (0.8-1.8); Bilirubin, Total 0.4 mg/dL (0.1-1.0); Bun/Creatinine Ratio 28.5 (12.0-20.0); Calcium, Blood 8.9 mg/dL (8.5-10.1); Creatinine, Blood 1.51 mg/dL (0.60-1.20); Globulin, Blood 3.8 g/dL (2.2-4.0); Potassium, Blood 4.4 mmol/L (3.5-5.5); Total Protein, Blood 7.4 g/dL (6.4-8.2); Troponin I 0.045 ng/mL (0.000-0.040)
[2018-03-16 04:35] LABS: BASOPHILS ABSOLUTE AUTO 0.07 K/mm3 (0.00-0.23); BASOPHILS PERCENT AUTO 1 % (0-2); EOSINOPHILS ABSOLUTE AUTO 0.84 K/mm3 (0.00-0.68); EOSINOPHILS PERCENT AUTO 10 % (0-6); Hematocrit 40.6 % (37.0-53.0); Hemoglobin 13.2 g/dL (13.5-17.5); IMMATURE GRAN ABSOLUTE AUTO 0.03 K/mm3 (0.00-0.10); IMMATURE GRAN PERCENT AUTO 0 % (0-1); LYMPHOCYTES ABSOLUTE AUTO 1.96 K/mm3 (0.84-5.20); LYMPHOCYTES PERCENT AUTO 24 % (21-46); MONOCYTES ABSOLUTE AUTO 1.02 K/mm3 (0.16-1.47); MONOCYTES PERCENT AUTO 13 % (4-13); Mean Corpuscular HGB 26.7 pg (26.0-34.0); Mean Corpuscular HGB Conc 32.5 g/dL (31.5-36.5); Mean Platelet Volume 11.7 fL (9.1-12.4); NEUTROPHILS ABSOLUTE AUTO 4.24 K/mm3 (1.96-9.15); NEUTROPHILS PERCENT AUTO 52 % (41-73); Platelet Count 240 K/mm3 (150-400); RDW Coefficient Variation 14.4 % (11.7-14.2); RDW Standard Deviation 41.9 fL (35.1-46.3); Red Blood Cell Count 4.94 M/mm3 (4.30-5.90); White Blood Cell Count 8.16 K/mm3 (4.00-11.30)
[2018-03-16 05:00] LABS: Bun/Creatinine Ratio 24.3 (12.0-20.0); Calcium, Blood 9.2 mg/dL (8.5-10.1); Creatinine, Blood 1.4 mg/dL (0.60-1.20); Potassium, Blood 4.4 mmol/L (3.5-5.5)
[2018-03-16 05:01] LABS: Troponin I 0.309 ng/mL (0.000-0.040)
[2018-03-16 05:10] LABS: Mean Corpuscular Volume 82 fL (80-100)
[2018-03-16] MEDS ORDERED: Amiodarone HCl200 MG PO (16:53)
== END 2018-03-16 17:15 | disposition home or self-care (01) | DRG 309 ==
LOC: ER 03:27 → ICUW 09:08 → PCU 09:08
PROVIDERS: Emergency Medicine; Internal Medicine
PROC: 5A2204Z Restoration of Cardiac Rhythm, Single (ICD-10-PCS; principal; 2018-03-16)
DX: I48.4 Atypical atrial flutter (principal); I24.9 Acute ischemic heart disease, unspecified; N17.9 Acute kidney failure, unspecified; I13.0 Hypertensive heart and chronic kidney disease with heart failure and stage 1 through stage 4 chronic kidney disease, or unspecified chronic kidney disease; I50.32 Chronic diastolic (congestive) heart failure; I25.10 Atherosclerotic heart disease of native coronary artery without angina pectoris; E11.65 Type 2 diabetes mellitus with hyperglycemia; D45 Polycythemia vera; E11.22 Type 2 diabetes mellitus with diabetic chronic kidney disease; N18.9 Chronic kidney disease, unspecified; G47.33 Obstructive sleep apnea (adult) (pediatric); Z79.4 Long term (current) use of insulin; Z79.01 Long term (current) use of anticoagulants; Z87.891 Personal history of nicotine dependence
CPT/HCPCS: 36415; 71046; 80048; 80053; 82947; 83690; 83735; 83880; 84484; 85025; 90686; 92960; 93005; 93010; 93306; 94640; 94762; 96365; 96366; 99152; 99285-25; G0008; J0282; J1815; J2250; J3010; J7060

== ENCOUNTER 2018-09-18 03:15 | Emergency (ER) | payer MEDICARE, OTHER ==
[~2018-09-18] VITALS: Ht 170.2 cm; Wt 86.2 kg
[~2018-09-18 03:15] MED LIST changes: +Amiodarone HCl200 MG PO; -DULO30 PO; +DULO60 PO; +Humalog100 UNIT/3 SC; +Lantus100 UNIT/1 SC; +MEGARED OMEGA-1 EAC1 PO; +TOCO1000 PO
== END 2018-09-18 05:20 | disposition home or self-care (01) ==
LOC: ER 03:15
DX: R04.0 Epistaxis (principal); I10 Essential (primary) hypertension; E78.00 Pure hypercholesterolemia, unspecified; Z88.5 Allergy status to narcotic agent; Z88.6 Allergy status to analgesic agent; Z88.8 Allergy status to other drugs, medicaments and biological substances; Z79.899 Other long term (current) drug therapy; Z79.02 Long term (current) use of antithrombotics/antiplatelets; Z79.4 Long term (current) use of insulin; Z87.891 Personal history of nicotine dependence
CPT/HCPCS: 30903; 99283-25

== ENCOUNTER 2018-10-06 04:58 | Inpatient (IN) | payer MEDICARE, OTHER ==
[~2018-10-06] VITALS: Ht 170.2 cm; Wt 82.3 kg
[2018-10-06 05:17] LABS: BASOPHILS ABSOLUTE AUTO 0.01 K/mm3 (0.00-0.23); BASOPHILS PERCENT AUTO 0 % (0-2); EOSINOPHILS PERCENT AUTO 0 % (0-6); Hematocrit 39.2 % (37.0-53.0); Hemoglobin 12.6 g/dL (13.5-17.5); IMMATURE GRAN ABSOLUTE AUTO 0.05 K/mm3 (0.00-0.10); IMMATURE GRAN PERCENT AUTO 1 % (0-1); LYMPHOCYTES ABSOLUTE AUTO 0.58 K/mm3 (0.84-5.20); LYMPHOCYTES PERCENT AUTO 8 % (21-46); MONOCYTES ABSOLUTE AUTO 0.24 K/mm3 (0.16-1.47); MONOCYTES PERCENT AUTO 3 % (4-13); Mean Corpuscular HGB 28.6 pg (26.0-34.0); Mean Corpuscular HGB Conc 32.1 g/dL (31.5-36.5); Mean Corpuscular Volume 89 fL (80-100); Mean Platelet Volume 11.1 fL (9.1-12.4); NEUTROPHILS ABSOLUTE AUTO 6.17 K/mm3 (1.96-9.15); NEUTROPHILS PERCENT AUTO 88 % (41-73); Platelet Count 223 K/mm3 (150-400); RDW Coefficient Variation 14.6 % (11.7-14.2); RDW Standard Deviation 47.2 fL (35.1-46.3); White Blood Cell Count 7.05 K/mm3 (4.00-11.30)
[2018-10-06 05:37] LABS: Alanine Aminotransfer (ALT/SGP 39 U/L (12-78); Albumin, Blood 3.6 g/dL (3.4-5.0); Albumin/Globulin Ratio 1.1 (0.8-1.8); Alk Phos 99 U/L (50-136); Anion Gap 8 mmol/L (6-16); Aspartate Aminotrans (AST/SGOT 31 U/L (12-37); Bilirubin, Total 0.4 mg/dL (0.1-1.0); Blood Urea Nitrogen 26 mg/dL (8-24); Bun/Creatinine Ratio 20.6 (12.0-20.0); CO2, Blood 23 mmol/L (21-32); Chloride, Blood 108 mmol/L (98-108); Creatinine, Blood 1.26 mg/dL (0.60-1.20); Globulin, Blood 3.4 g/dL (2.2-4.0); Glomerular Filtration Rate 59 (60-); Glucose, Blood 328 mg/dL (70-99); Potassium, Blood 5.3 mmol/L (3.5-5.5); Sodium, Blood 139 mmol/L (136-145); Troponin I <0.015 ng/mL (0.000-0.040)
--- NOTE | 2018-10-06 10:00 | NUR ---
RECEIVED REPORT FROM AMINATA CUETO, AND WILL ASSUME CARE OF PT WHEN ARRIVES INTO ROOM ICU 15.
--- NOTE | 2018-10-06 10:40 | NUR ---
CALLED DR. WEINER RE: LOW BLOOD PRESSURE OF 80'S/40'S, LUNGS WITH CRACKLES IN BASES, AND ROM/ED RN'S DESCRIPTION THAT PT HAD EPISODE OF FLASH PULMONARY EDEMA AFTER RECEIVING 400 ML OF NS. NEW ORDER TO CONSULT DR. ARRIAZA. CONSULT GIVEN TO DR. ARRIAZA.
--- NOTE | 2018-10-06 11:11 | NUR ---
NURSING SUMMARY - RECEIVED PT FROM ED ALERT AND ORIENTED X 4. LUNGS WITH CRACKLES AT THE BASES, 87% ON ROOM AIR, PLACED ON 4L O2 NC, SATS 92-96%, RR 31. C/O MID-STERNAL CHEST PAIN, SR - ST ON MONITOR, HR 96-110, HYPOTENSIVE, BP 80'S/40'S. PER ED RN REPORT, PT EXPERIENCED FLASH PULMONARY EDEMA AFTER RECEIVING [address] WEINER, ORDERED GEOSCIENCE SPECIALIST CONSULT. CONSULTED WITH DR. ARRIAZA, NEW ORDER GEOSCIENCE SPECIALIST CONSULT. CONSULTED WITH DR. ARRIAZA, NEW ORDER TO PLACE PT ON BIPAP, RT AT BEDSIDE AT THIS TIME PLACING BIPAP. PT DOES USE CPAP AT NIGHT AND WHENEVER HE TAKES NAPS DURING THE DAY. CPAP AT BEDSIDE. SETTING UP AT BEDSIDE TO PLACE A CENTRAL LINE. TROPONIN NEGATIVE. LACTIC ACID 8.1. DR. ARRIAZA AWARE. EKG SHOWS ST. C/O MILD NAUSEA, WAS MEDICATED WITH ZOFRAN BY THE ED. ABDOMEN DISTENDED, NON-TENDER, NPO. PER ED RN REPORT, PT VOIDS PER URINAL. PT HAS NOT VOIDED SINCE ARRIVAL TO ICU. SKIN INTACT. LEFT WRIST 20G AND LAC 18G, AZITHROMYCIN WAS STARTED IN ED, JUST FINISHED INFUSING.
--- NOTE | 2018-10-06 11:37 | NUR ---
PATIENT UNABLE TO TOLERATE THE BIPAP. PLACED ON CPAP BY RESPIRATORY THERAPY. DR. ARRIAZA AT BEDSIDE. BP COMING UP, 104/63, HR HIGH 90'S. OXYGEN SATURATION 96-99% ON CPAP, RR 24.
[2018-10-06] MEDS ORDERED: AMLO5 PO (11:42)
[2018-10-06] MEDS ORDERED: TEMA7.5 PO (11:42)
[2018-10-06] MEDS ORDERED: CALC.25 PO ×2 (11:44→11:51)
[2018-10-06] MEDS ORDERED: Zantac150 MG PO (11:45)
[2018-10-06] MEDS ORDERED: METF500C PO (11:46)
[2018-10-06] MEDS ORDERED: VITAMIN C500 M1 PO (11:47)
[2018-10-06] MEDS ORDERED: LO-DOSE ASPIRIN81 MG PO (11:47)
[2018-10-06] MEDS ORDERED: FLUO10 PO (11:48)
[2018-10-06] MEDS ORDERED: Ferrous Sulfat325 M2 PO (11:53)
[2018-10-06] MEDS ORDERED: PANT40 PO (11:54)
[2018-10-06] MEDS ORDERED: Loratadine10 MG PO (12:16)
[2018-10-06 12:27] LABS: Base Excess Venous -11.3 mmol/L; Bicarbonate Venous 15.9 mmol/L (24.0-30.0); PCO2 Venous 40.5 mmHg (38-42); PO2 Venous 70.2 mmHg (38-42)
[2018-10-06 12:28] LABS: pH Blood Venous 7.22 (7.34-7.37)
--- NOTE | 2018-10-06 12:33 | NUR ---
ADVISED DR. ARRIAZA OF BLOOD GLUCOSE AT 484, NEW ORDER FOR BLOOD SUGAR CHECKS EVERY 4 HOURS AND TO GIVE 10 UNITS OF HUMALOG NOW.
--- NOTE | 2018-10-06 12:35 | NUR ---
DR. MCGEE AT BEDSIDE FOR EVALUATION, NEW ORDER TO STOP IVF AND GIVE LASIX 20 MG IV. DONE. LAB AT BEDSIDE.
--- NOTE | 2018-10-06 13:00 | NUR ---
DR. MCCRARY AT BEDSIDE, NEW ORDER FOR ANOTHER 20 MG LASIX IV. GIVEN.
[2018-10-06] MEDS ORDERED: NEBI5 PO (13:53)
[2018-10-06 14:00] LABS: International Normalized Ratio 1.15
--- NOTE | 2018-10-06 14:00 | NUR ---
PATIENT DENIES CHEST PAIN AT THIS TIME, HOLDING NITROGLYCERIN DUE TO NO CHEST PAIN AND HYPOTENSION. LAURA, TRANSMISSION OPERATOR, PLACED CALL TO DR. MCCRARY TO INFORM, IN A PROCEDURE AND WILL RETURN CALL АННА. HOLDING DOPAMINE GTT PER DR. ARRIAZA SINCE NITROGLYCERIN GTT HELD AND ASYMPTOMATIC WITH LOW BLOOD PRESSURES AT 90'S/40'S. SINUS RHYTHM TO SINUS TACHYCARDIA, HR 96 - 110, WITH ST SEGMENT DEPRESSION. PATIENT MUCH MORE COMFORTABLE WITH BREATHING ON THE CPAP, RR 22, SATS REMAINING IN THE HIGH 90%'S. PT ABLE TO FALL ASLEEP BETWEEN CARE INTERRUPTIONS, WAKES EASILY TO VOICE. A TOTAL OF 80MG OF LASIX IV GIVEN, VOIDED X 3, CLEAR/YELLOW URINE. NPO IN PREPARATION FOR POSSIBLE ANGIOGRAM.
[2018-10-06 14:11] LABS: Adenovirus Not Detected (NOT DETECT); Bordetella pertussis Not Detected (NOT DETECT); Chlamydophila pneumoniae Not Detected (NOT DETECT); Coronavirus 229E Not Detected (NOT DETECT); Coronavirus HKU1 Not Detected (NOT DETECT); Coronavirus NL63 Not Detected (NOT DETECT); Coronavirus OC43 Not Detected (NOT DETECT); Human Metapneumovirus Not Detected (NOT DETECT); Human Rhinovirus/Enterovirus Not Detected (NOT DETECT); Influenza A Not Detected (NOT DETECT); Influenza A/2009-H1 Not Detected (NOT DETECT); Influenza A/H1 Not Detected (NOT DETECT); Influenza A/H3 Not Detected (NOT DETECT); Influenza B Not Detected (NOT DETECT); Mycoplasma pneumoniae Not Detected (NOT DETECT); Parainfluenza Virus 1 Not Detected (NOT DETECT); Parainfluenza Virus 2 Not Detected (NOT DETECT); Parainfluenza Virus 3 Not Detected (NOT DETECT); Parainfluenza Virus 4 Not Detected (NOT DETECT); Respiratory Syncytial Virus Not Detected (NOT DETECT)
--- NOTE | 2018-10-06 14:30 | NUR ---
HEPARIN BOLUS OF 5,550 UNITS GIVEN AND HEPARIN GTT STARTED AT 13 UNITS/KG.
--- NOTE | 2018-10-06 15:25 | NUR ---
SHARI, PHARMACEUTICAL PROCESS ENGINEER'S, AT BEDSIDE PLACING A PICC LINE.
--- NOTE | 2018-10-06 16:30 | NUR ---
DR. WEINER AT BEDSIDE FOR EVALUATION. NEW ORDER FOR LANTUS 50 UNITS NOW PROVIDED.
[2018-10-06 17:46] LABS: Glucose, Blood 559 mg/dL (70-99)
--- NOTE | 2018-10-06 18:00 | NUR ---
DR. ARRIAZA AWARE THAT NITROGLYCERIN GTT AND DOPAMINE GTT WERE NOT STARTED. PT NO LONGER EXPERIENCING CHEST PAIN, BP'S DOWN TO 80'S/40'S AT TIMES, ASYMPTOMATIC. KEEPING ORDER ON STANDBY SHOULD THE MEDICATIONS BE NEEDED TONIGHT. DR. MCCRARY CONSULTED WITH PT TODAY. PLANNING TO DO AN ANGIOGRAM WHEN PT BREATHING BETTER AND ABLE TO LAY FLAT LONG ENOUGH TO TOLERATE THE ANGIOGRAM. CONSENTED FOR ANGIOGRAM, NPO. PICC LINE PLACED TO LEFT UPPER ARM, HEPARIN GTT INFUSING AT 13 UNITS/KG/HOUR = 19.2 CC/HR AT THIS TIME, NEXT PT LEVEL SCHEDULED FOR 2099, MANAGED BY PHARMACY. PT BREATHING MUCH BETTER ON CPAP AT SETTINGS 10/6/10/40%, ABLE TO CARRY ON CONVERSATIONS WITH VISITORS AT THE BEDSIDE WITHOUT SOB AND DESATTING. BLOOD SUGARS ELEVATED, AT 1700 BLOOD SUGAR 559, GAVE LANTUS 50 UNITS AND HUMALOG 20 UNITS, AND GAVE SOLUMEDROL 40 MG IVP. BLOOD SUGAR CHECKS WITH SLIDING SCALE HUMALOG COVERAGE ORDERED EVERY 4 HOURS, RECHECKED BLOOD SUGAR AT 1840 = 450, NEXT BLOOD SUGAR SCHEDULED AT 1999.
--- NOTE | 2018-10-06 19:29 | NUR ---
TROPONIN RESULTS/DR. ARRIAZA NOTIFIED: AT 1914, DR. ARRIAZA CALLED WITH THE 1800 TROPONIN RESULTS. HEPARIN gtt VERIFIED AND CONTINUING INFUSION. SERIAL TROPONIN ORDERS VERIFIED AND TO FOLLOW THE Q8 HOURS FOR NEXT TROPONIN TO BE DONE 10/07/18 AT 0200. REPORT AT BEDSIDE. PT WEARING BIPAP AND HAD NO COMPLAINTS. BIPAP SETTINGS 10/6 FiO2 40%. PT TOLERATING WELL. PT DENIES PAIN, SOB, OR ANXIETY. PT VSS. CALL LIGHT IN HAND. PT GIVEN BED CONTROL PER REQUEST.
--- NOTE | 2018-10-06 21:49 | NUR ---
PT LYING FLAT IN SUPIINE POSITION PER PT'S CHOICE. PT STATES IS BREATHING FINE. PT CONTINUES TO DENY CHEST PAIN, SOB, AND/OR ANXIETY. VSS. CALL LIGHT IN HAND.
--- NOTE | 2018-10-06 22:34 | NUR ---
aPTT CALLED TO PHARMACY OF 77.8. VERBAL FROM [facility] TO KEEP HEPARIN gtt AT CURRENT RATE.
[2018-10-07 02:52] LABS: Albumin, Blood 3.3 g/dL (3.4-5.0); Bilirubin, Total 0.3 mg/dL (0.1-1.0); Bun/Creatinine Ratio 25.6 (12.0-20.0); Calcium, Blood 8.7 mg/dL (8.5-10.1); Creatinine, Blood 1.76 mg/dL (0.60-1.20); Globulin, Blood 3.2 g/dL (2.2-4.0); Magnesium, Blood 1.6 mg/dL (1.6-2.4); Phosphorus, Blood 3.2 mg/dL (2.5-4.9); Potassium, Blood 4.8 mmol/L (3.5-5.5); Total Protein, Blood 6.5 g/dL (6.4-8.2)
--- NOTE | 2018-10-07 05:50 | NUR ---
PHARMACY ORDER TO KEEP HEPARIN AT CURRENT RATE AND NEXT aPTT FOR 0900.
--- NOTE | 2018-10-07 06:27 | NUR ---
PT WITH INCREASED USE OF ACCESSORY MUSCLE WHILE LYING SUPINE SLEEPING. PT RAISED TO HIGH FOWLERS AND FiO2 INCREASED TO 50%. WILL CONTINUE TO MONITOR.
--- NOTE | 2018-10-07 07:15 | NUR ---
REPORT TO ELAINE COATES TO ASSUME CARE OF PT AT THIS TIME.
--- NOTE | 2018-10-07 07:29 | NUR ---
ASSUMED CARE REPORT FROM DENA Zamora RN. PATIENT IS ON BIPAP, RECEIVING BREATHING TX. COUGHING BEHIND MASK. ON HEPARIN GTT.
--- NOTE | 2018-10-07 08:16 | NUR ---
MD VISIT DR. HURST IN. PLAN FOR NUMERICAL CONTROL DRILL PRESS OPERATOR
--- NOTE | 2018-10-07 08:58 | NUR ---
DRISS RN FROM ELEMENTARY READING SPECIALIST HERE TO TAKE PATIENT. HEPARIN STOPPED, ATTEMPTED NC, BUT SATS DROPPED TO 79 ON 4L. BIPAP BACK ON AT IPAP 10, EPAP 6, FIO2 50%
--- NOTE | 2018-10-07 09:02 | NUR ---
AT BEDSIDE, WILL BE IN [facility] WAITING ROOM DURING CATH
--- NOTE | 2018-10-07 09:03 | NUR ---
OUT OF ROOM TO CATH
--- NOTE | 2018-10-07 10:36 | NUR ---
RETURNED FROM PITCHING COACH, PATIENT UNABLE TO TOLERATE COMPLETION D/T BREATHING. PLAN TO TAKE PATIENT BACK ON WEDNESDAY. NTG GTT STARTED IN PITCHING COACH AT 30 MCG/MIN
--- NOTE | 2018-10-07 11:42 | NUR ---
MD VISIT DR. ARRIAZA IN
--- NOTE | 2018-10-07 11:43 | NUR ---
MEYER CATHETER PLACED AFTER LIDOCAINE, CLEAR URINE RETURNED
--- NOTE | 2018-10-07 11:44 | NUR ---
MD VISIT DR. MENCHACA IN. FAMILY UPDATED ON CATH PROCEDURE
[2018-10-07 11:48] LABS: Base Excess Venous -0.3 mmol/L; Bicarbonate Venous 23.9 mmol/L (24.0-30.0); PO2 Venous 140 mmHg (38-42); pH Blood Venous 7.35 (7.34-7.37)
--- NOTE | 2018-10-07 14:54 | NUR ---
MD VISIT DR. OCAMPO UPDATED
[2018-10-07 17:45] LABS: Source, Urine Catheter
[2018-10-07 17:54] LABS: Bilirubin, Urine Neg (Neg); Blood, Urine 5+ (Neg); Glucose Qualitative, Urine Neg (Neg); Ketones, Urine Neg (Neg); Leukocyte Esterase, Urine 1+ (Neg); Nitrite, Urine Neg (Neg); Protein, Urine Neg (Neg); Urobilinogen, Urine NORM (Normal)
[2018-10-07 18:13] LABS: Appearance, Urine Hazy (Clear); Color, Urine Yellow (P-Yellow)
[2018-10-07 18:15] LABS: Red Blood Cells, Urine TNTC /hpf (0-2); Squamous Epithelial Cells Few /hpf (Few)
[2018-10-07 18:16] LABS: Bacteria Rare /hpf
--- NOTE | 2018-10-07 18:30 | NUR ---
RIGHT GROIN SITE WITH ANGIO SEAL. OOZING UNDER DRESSING. SOFT TO PALP. NTG GTT AT 50 MCG/MIN. 900 CC URINE OUT. UNABLE TO TOLERATE LONG BREAKS FROM BIPAP, EVEN WITH 4L OXYMIZER. DRINKS AND ORAL CARE ONLY. PRN LASIX. ORDERED.
--- NOTE | 2018-10-07 19:33 | NUR ---
CONTACTED DR. MONCADA TO ASK IF HE WANTED HEPARIN RESTARTED AND HE SAID RESTART IT AT THE DOSE HE WAS ON PRIOR TO THE FORKLIFT OPERATOR, WITH NO BOLUS. PHARMACY NOTIFIED AND RESTARTED AT 13 UNITS/KG
[2018-10-08 05:17] LABS: BASOPHILS PERCENT AUTO 0 % (0-2); EOSINOPHILS PERCENT AUTO 0 % (0-6); Hematocrit 31.5 % (37.0-53.0); Hemoglobin 10.4 g/dL (13.5-17.5); IMMATURE GRAN ABSOLUTE AUTO 0.07 K/mm3 (0.00-0.10); IMMATURE GRAN PERCENT AUTO 1 % (0-1); LYMPHOCYTES ABSOLUTE AUTO 0.47 K/mm3 (0.84-5.20); LYMPHOCYTES PERCENT AUTO 4 % (21-46); MONOCYTES ABSOLUTE AUTO 1.11 K/mm3 (0.16-1.47); MONOCYTES PERCENT AUTO 10 % (4-13); Mean Corpuscular HGB 28.9 pg (26.0-34.0); Mean Corpuscular Volume 88 fL (80-100); Mean Platelet Volume 10.7 fL (9.1-12.4); NEUTROPHILS ABSOLUTE AUTO 9.56 K/mm3 (1.96-9.15); NEUTROPHILS PERCENT AUTO 85 % (41-73); Platelet Count 162 K/mm3 (150-400); RDW Coefficient Variation 14.8 % (11.7-14.2); RDW Standard Deviation 47.5 fL (35.1-46.3); White Blood Cell Count 11.21 K/mm3 (4.00-11.30)
[2018-10-08 06:11] LABS: Albumin, Blood 2.8 g/dL (3.4-5.0); Albumin/Globulin Ratio 0.9 (0.8-1.8); Bilirubin, Total 0.6 mg/dL (0.1-1.0); Bun/Creatinine Ratio 31.9 (12.0-20.0); Calcium, Blood 8.2 mg/dL (8.5-10.1); Creatinine, Blood 1.66 mg/dL (0.60-1.20); Globulin, Blood 3.1 g/dL (2.2-4.0); Magnesium, Blood 1.8 mg/dL (1.6-2.4); Phosphorus, Blood 3.7 mg/dL (2.5-4.9); Potassium, Blood 4.4 mmol/L (3.5-5.5); Total Protein, Blood 5.9 g/dL (6.4-8.2)
--- NOTE | 2018-10-08 06:18 | NUR ---
SHIFT SUMMARY NO ACUTE CHANGES THIS SHIFT. PT HAS SLEPT OFF AND ON THROUGHOUT THE NIGHT. WHEN AWAKE PT IS ALERT, ORIENTED, AND PLEASANT. PT HAS DENIED CHEST PAIN AND ONLY COMPLAINED OF SOB WHEN OFF BIPAP AT TIMES. PT ON BIPAP AT 14/8, FIO2 45%. PT ON 5L OXYMIZER FOR BREAKS FROM BIPAP. VITAL SIGNS HAVE REMAINED STABLE. NITRO GTT REMAINS AT 50 MCG/MIN, AND HEPARIN AT 13 UNITS/KG/HR. PICC TO MAMTA IN PLACE. MEYER REMAINS IN PLACE WITH GOOD URINE OUTPUT THIS SHIFT. RIGHT FEMORAL ACCESS SITE REMAINS INTACT WITH NO HEMATOMA OR SIGNS OF BLEEDING. WILL CONTINUE TO MONITOR AND REPORT OFF TO ONCOMING RN.
--- NOTE | 2018-10-08 07:27 | NUR ---
ASSUMED CARE AT 0700 REPORT FROM AMINATA NAJERA. PATIENT REQUESTED DIET PEPSI AND COLD WATER. BREAK FROM BIPAP ON 4L OXYMIZER. INHALER TX BY RT FORTINO. NTG GTT AT 50 MCG/MIN. HEPARIN GTT AT 14 UNITS/KG/HR. CRACKLES T/O LUNGS. OCCASIONAL WET SOUNDING COUGH.
--- NOTE | 2018-10-08 09:37 | NUR ---
MD VISITS DR. ARRIAZA AND DR. OCAMPO IN. BIPAP BACK ON AFTER TURNING.
--- NOTE | 2018-10-08 12:19 | NUR ---
DR. ARRIAZA NOTIFIED CBG GREATER THAN 400. RECHECK AT 1330
--- NOTE | 2018-10-08 15:31 | NUR ---
ASSISTED PATIENT TO CHAIR AND THEN TO TOILET WHERE HE HAD A BM. 1200 CC EMPTIED FROM HIS CATHETER. ASSISTED WITH BATH. SITTING IN CHAIR BY WINDOW. DYSPNEA WITH EXERTION, BUT WAS ABLE TO RECOVER ON HIS 4L OXYMIZER WITHOUT PUTTING BIPAP ON.
--- NOTE | 2018-10-08 20:00 | NUR ---
[place] of Care: Patient alert, oriented x4, sitting upright in bed watching tv. Requested to put on BiPAP mask as he wanted to try to sleep. BiPAP 14/8/40%, O2-90-93%, denies dyspnea/SOB at rest, VSS. Nitro gtt infusing at 50mcg/min, for target MAP of 70-79. Heparin gtt infusing at 14u/kg/hr, dosed at 74kg, dose/rate confirmed with EMAR and 2nd RN, next PTT scheduled for this time. Devine cath patent and intact, draining clear, yellow urine. Denies pain/discomfort. Call light in reach, makes needs known. Will continue to monitor for pain, comfort, safety.
[2018-10-09 04:47] LABS: BASOPHILS ABSOLUTE AUTO 0.01 K/mm3 (0.00-0.23); BASOPHILS PERCENT AUTO 0 % (0-2); EOSINOPHILS PERCENT AUTO 0 % (0-6); Hematocrit 29.1 % (37.0-53.0); Hemoglobin 9.7 g/dL (13.5-17.5); IMMATURE GRAN ABSOLUTE AUTO 0.09 K/mm3 (0.00-0.10); IMMATURE GRAN PERCENT AUTO 1 % (0-1); LYMPHOCYTES ABSOLUTE AUTO 0.55 K/mm3 (0.84-5.20); LYMPHOCYTES PERCENT AUTO 5 % (21-46); MONOCYTES ABSOLUTE AUTO 1.24 K/mm3 (0.16-1.47); MONOCYTES PERCENT AUTO 12 % (4-13); Mean Corpuscular HGB 28.7 pg (26.0-34.0); Mean Corpuscular HGB Conc 33.3 g/dL (31.5-36.5); Mean Corpuscular Volume 86 fL (80-100); Mean Platelet Volume 11.3 fL (9.1-12.4); NEUTROPHILS ABSOLUTE AUTO 8.42 K/mm3 (1.96-9.15); NEUTROPHILS PERCENT AUTO 82 % (41-73); Platelet Count 159 K/mm3 (150-400); RDW Coefficient Variation 14.5 % (11.7-14.2); RDW Standard Deviation 44.6 fL (35.1-46.3); Red Blood Cell Count 3.38 M/mm3 (4.30-5.90); White Blood Cell Count 10.31 K/mm3 (4.00-11.30)
[2018-10-09 05:08] LABS: Albumin, Blood 2.7 g/dL (3.4-5.0); Albumin/Globulin Ratio 0.8 (0.8-1.8); Bilirubin, Total 0.7 mg/dL (0.1-1.0); Bun/Creatinine Ratio 32.7 (12.0-20.0); Calcium, Blood 8.3 mg/dL (8.5-10.1); Creatinine, Blood 1.56 mg/dL (0.60-1.20); Globulin, Blood 3.4 g/dL (2.2-4.0); Magnesium, Blood 1.7 mg/dL (1.6-2.4); Potassium, Blood 4.1 mmol/L (3.5-5.5); Total Protein, Blood 6.1 g/dL (6.4-8.2)
--- NOTE | 2018-10-09 06:33 | NUR ---
Shift Summary: Patient slept well throughout shift, easily roused via verbal stimuli. Tolerated short breaks from mask for PO water, but requested to stay on mask and go back to sleep. BiPAP continued at 14/8/40% FiO2, O2-90-93%, no c/o dyspnea/SOB. Continues to deny pain/discomfort. Call light in reach, makes needs known, adjust own position in bed. Nitro gtt decreased from 50mcg/min to 45mcg/min, MAP's 60's-70's throughout shift. Heparin gtt increased at approx 2130hr from 14u to 15u/kg/hr, no adjustments made following morning PTT draw, next PTT at 1100hr. Devine cath patent and intact, draining clear yellow urine. PICC line remains patent and intact. Will continue to monitor until report to day shift RN.
--- NOTE | 2018-10-09 11:06 | NUR ---
MD VISITS DR. OCAMPO AND DR. ARRIAZA IN.
--- NOTE | 2018-10-09 11:07 | NUR ---
PATIENT OOB TO TOILET FOR BM. SAT IN CHAIR FOR AWHILE TO FINISH HIS BREAKFAST AND NOW IS BACK TO BED FOR A NAP WITH BIPAP MASK ON. O2 TITRATED TO 4L. BIOX DROPS AND PT FEELS OUT OF BREATH WITH ACTIVITY BUT RECOVERS WITH REST. CEPACOL LOZENGES ORDERED
--- NOTE | 2018-10-09 16:13 | NUR ---
CONTACTED DR. OCAMPO RE: ESCALATING BLOOD SUGARS. INSULIN GTT ORDERED
[2018-10-09 18:35] LABS: Base Excess Venous 5.9 mmol/L; Bicarbonate Venous 29.2 mmol/L (24.0-30.0); PCO2 Venous 43.5 mmHg (38-42); PO2 Venous 83.8 mmHg (38-42); pH Blood Venous 7.45 (7.34-7.37)
--- NOTE | 2018-10-09 18:42 | NUR ---
CBG 326 AFTER EATING HIS DINNER. CONTACTED DR. OCAMPO AND ORDERS TO START INSULIN GTT ONLY IF CBG TRENDS ABOVE 400'S AGAIN
--- NOTE | 2018-10-09 19:15 | NUR ---
ASSUMPTION OF CARE: Pt sitting in bed, alert and oriented x4 denies any chest pain at this time. Pt is on 5L O2 per NC with O2 at 91-94%, denies dyspnea at rest. PICC line present to Lt arm patent and intact, infusing nitro @ 30 mcg/min, to be titrated to acheive MAP of 70-75. Heparin infusing @ 15u/kg/hr, dosed at 74kg, dose/weight confirmed with EMAR and second RN. Devine catheter draining clear yellow urine. Plan to place on BiPAP when sleeping.
[2018-10-10 00:48] LABS: Glucose, Blood 300 mg/dL (70-99)
[2018-10-10 04:48] LABS: BASOPHILS ABSOLUTE AUTO 0.01 K/mm3 (0.00-0.23); BASOPHILS PERCENT AUTO 0 % (0-2); EOSINOPHILS PERCENT AUTO 0 % (0-6); Hemoglobin 9.3 g/dL (13.5-17.5); IMMATURE GRAN ABSOLUTE AUTO 0.09 K/mm3 (0.00-0.10); IMMATURE GRAN PERCENT AUTO 1 % (0-1); LYMPHOCYTES ABSOLUTE AUTO 0.34 K/mm3 (0.84-5.20); LYMPHOCYTES PERCENT AUTO 5 % (21-46); MONOCYTES ABSOLUTE AUTO 0.72 K/mm3 (0.16-1.47); MONOCYTES PERCENT AUTO 10 % (4-13); Mean Corpuscular HGB 28.5 pg (26.0-34.0); Mean Corpuscular HGB Conc 33.2 g/dL (31.5-36.5); Mean Corpuscular Volume 86 fL (80-100); Mean Platelet Volume 11.9 fL (9.1-12.4); NEUTROPHILS ABSOLUTE AUTO 6.45 K/mm3 (1.96-9.15); NEUTROPHILS PERCENT AUTO 85 % (41-73); Platelet Count 161 K/mm3 (150-400); RDW Coefficient Variation 14.1 % (11.7-14.2); Red Blood Cell Count 3.26 M/mm3 (4.30-5.90); White Blood Cell Count 7.61 K/mm3 (4.00-11.30)
[2018-10-10 04:55] LABS: Albumin, Blood 2.5 g/dL (3.4-5.0); Albumin/Globulin Ratio 0.7 (0.8-1.8); Bilirubin, Total 0.5 mg/dL (0.1-1.0); Calcium, Blood 8.3 mg/dL (8.5-10.1); Creatinine, Blood 1.36 mg/dL (0.60-1.20); Globulin, Blood 3.6 g/dL (2.2-4.0); Potassium, Blood 4.6 mmol/L (3.5-5.5); Total Protein, Blood 6.1 g/dL (6.4-8.2)
--- NOTE | 2018-10-10 06:06 | NUR ---
SHIFT SUMMARY: Pt sleeping through most of shift, easily arousable and remains alert and oriented. Pt on BiPAP while sleeping settings increased from 05/21 to 30/05 by RT per concerns of obstruction while sleeping. O2 91-96%, tolerating BiPAP well. MAP's 60's-80's with HR 80's, normal sinus rhythm with ST depression throughout shift. Blood glucose of 412 with morning labs, insulin drip started at 0515 per nurse notify, will monitor blood glucose Q1H. PICC line intact and infusing without difficulty. Devine cath draining clear yellow urine. Pt remained NPO after midnight for plan to go to [facility] this AM for angiogram.
--- NOTE | 2018-10-10 08:30 | NUR ---
PT LEAVES TO FURNACE PROCESS PLANT OPERATOR PT GAVE MORNING MEDS BEFORE LEAVING TO FURNACE PROCESS PLANT OPERATOR AT 0830. COORDINATION REGARDING INSULIN GTT MADE WITH FURNACE PROCESS PLANT OPERATOR NURSE AND TECH.
--- NOTE | 2018-10-10 10:19 | NUR ---
PT BACK FROM AIRFREIGHT LOADING SUPERVISOR PT BACK AT 1017 WITH TR BAND ON RIGHT HAND. PT REPORTS NO NUMBNESS/TINGLING, PAIN AND SHOWS GOOD CAP REFIL AND PULSES. NO COMPLICATIONS OR SIGNIFICANT EVENTS REPORTED FROM AIRFREIGHT LOADING SUPERVISOR TEAM
--- NOTE | 2018-10-10 18:25 | NUR ---
SHIFT SUMMARY PT IS A&OX4 AND IS TOLERATING HIS 4L NC WELL. PT IS ONLY RECIEVING NS TKO AND IS OFF HIS INSULIN AND HEPARIN GTTPS. TR BAND IS OFF AND HAS BEEN CDI, NO PAIN AND HEMATOMA PRESENT. HOWEVER, THERE IS A SMALL IMMOBILE HARDNESS PROXIMAL TO THE SITE, THAT MAY BE A HEMATOMA FORMED DURING CATHERTIZATION.
--- NOTE | 2018-10-10 19:30 | NUR ---
PT AWAKE, VSS, CONT NSR. PT WAS REPORTED TO HAVE SOME NAUSEA IN THE AFTERNOON, AND CONT TO BE INTERMITTANTLY NAUSEATED. R RADIAL SITE SOFT, SCANT AMT OF BLEEDING UNDER TRANSP DRSG, DENIES NUMBNESS OR TINGLING. ARM BOARD REPOSITIONED & PT REMINDED RE MOVEMENT RESTRICTIONS.
--- NOTE | 2018-10-10 21:30 | NUR ---
PT HAS HAD COUPLE EPISODES OF EMESIS, EACH BECOMING MORE MAROON. PT ALSO CO LOWER ABD PAIN, JUST ABOVE UMBILICUS. DENIES THAT PAIN IS SIMILAR TO PREVIOUS CHEST DISCOMFORT. PT SL DIAPHORETIC. NOT TACHYCARDIC, BP IS STABLE. PT WANTS TO GET OUT OF BED TO TOILET. PT HAS BEEN MED Delaney LEPE. DISCUSSED PT STATUS Delaney DOMINGUEZ, RAIL BENDER & ORDERS REC'D. WILL START PROTONIX GTT. WILL NOTIFY PT OF PTS STATUS PER PT REQUEST.
[2018-10-10 21:54] LABS: BASOPHILS ABSOLUTE AUTO 0.01 K/mm3 (0.00-0.23); BASOPHILS PERCENT AUTO 0 % (0-2); EOSINOPHILS ABSOLUTE AUTO 0.01 K/mm3 (0.00-0.68); EOSINOPHILS PERCENT AUTO 0 % (0-6); Hematocrit 29.9 % (37.0-53.0); Hemoglobin 10.1 g/dL (13.5-17.5); IMMATURE GRAN ABSOLUTE AUTO 0.15 K/mm3 (0.00-0.10); IMMATURE GRAN PERCENT AUTO 1 % (0-1); LYMPHOCYTES PERCENT AUTO 6 % (21-46); MONOCYTES ABSOLUTE AUTO 1.14 K/mm3 (0.16-1.47); MONOCYTES PERCENT AUTO 11 % (4-13); Mean Corpuscular HGB 29.4 pg (26.0-34.0); Mean Corpuscular HGB Conc 33.8 g/dL (31.5-36.5); Mean Corpuscular Volume 87 fL (80-100); Mean Platelet Volume 11.4 fL (9.1-12.4); NEUTROPHILS ABSOLUTE AUTO 8.79 K/mm3 (1.96-9.15); NEUTROPHILS PERCENT AUTO 82 % (41-73); Platelet Count 221 K/mm3 (150-400); RDW Coefficient Variation 14.1 % (11.7-14.2); RDW Standard Deviation 44.2 fL (35.1-46.3); Red Blood Cell Count 3.44 M/mm3 (4.30-5.90)
[2018-10-10 22:11] LABS: International Normalized Ratio 1.06; Prothrombin Time Results 11.2 Sec (9.7-11.5)
--- NOTE | 2018-10-11 01:15 | NUR ---
PT FEELING BETTER. PARTIAL LINEN CHANGE & PARTIAL BATH. NAUSEA IS MUCH IMPROVED. PT ASSISTED TO BSC & PASSED MUCH FLATUS. NO STOOL. PT HAS BEEN USING BIPAP WHILE SLEEPING & TOLERATING WELL. PROTONIX INFUSING.
--- NOTE | 2018-10-11 06:30 | NUR ---
PT HAS BEEN RESTING LAST COUPLE HOURS. STATES HE'S FEELING MUCH BETTER. REPORT TO DAYS.
[2018-10-11 06:37] LABS: BASOPHILS ABSOLUTE AUTO 0.01 K/mm3 (0.00-0.23); BASOPHILS PERCENT AUTO 0 % (0-2); EOSINOPHILS ABSOLUTE AUTO 0.38 K/mm3 (0.00-0.68); EOSINOPHILS PERCENT AUTO 3 % (0-6); Hematocrit 29.1 % (37.0-53.0); Hemoglobin 9.7 g/dL (13.5-17.5); IMMATURE GRAN ABSOLUTE AUTO 0.13 K/mm3 (0.00-0.10); IMMATURE GRAN PERCENT AUTO 1 % (0-1); LYMPHOCYTES ABSOLUTE AUTO 0.99 K/mm3 (0.84-5.20); LYMPHOCYTES PERCENT AUTO 8 % (21-46); MONOCYTES ABSOLUTE AUTO 1.36 K/mm3 (0.16-1.47); MONOCYTES PERCENT AUTO 11 % (4-13); Mean Corpuscular HGB 28.7 pg (26.0-34.0); Mean Corpuscular HGB Conc 33.3 g/dL (31.5-36.5); Mean Corpuscular Volume 86 fL (80-100); Mean Platelet Volume 11.3 fL (9.1-12.4); NEUTROPHILS ABSOLUTE AUTO 9.03 K/mm3 (1.96-9.15); NEUTROPHILS PERCENT AUTO 76 % (41-73); NRBC ABSOLUTE 0.02 K/mm3 (0.00-0.02); NRBC Auto 0.2 /100 WBC (0.0-0.2); Platelet Count 218 K/mm3 (150-400); RDW Coefficient Variation 14.5 % (11.7-14.2); RDW Standard Deviation 44.6 fL (35.1-46.3); Red Blood Cell Count 3.38 M/mm3 (4.30-5.90)
--- NOTE | 2018-10-11 08:21 | NUR ---
MD VISIT DR. NGUYEN IN
--- NOTE | 2018-10-11 08:49 | NUR ---
LATE ENTRY: ASSUMED CARE REPORT FROM AMINATA MAHMOOD. PATIENT WAS SLEEPING WITH BIPAP ON
--- NOTE | 2018-10-11 09:00 | NUR ---
GI , DR. DINERO, CALLED TO CHECK ON PT. NO PLANS FOR SCOPE. CHANGED DIET TO CL FOR NOW. CONTINUE PRTONIX GTT FOR 24 HOURS, THEN BID. SCHEDULED ZOFRAN FOR NAUSEA.
--- NOTE | 2018-10-11 09:03 | NUR ---
BIPAP PLACED BACK ON PT WHEN HE FELL ASLEEP
--- NOTE | 2018-10-11 10:51 | NUR ---
MD VISIT DR. MENCHACA IN. ORDERS FOR PT/OT
--- NOTE | 2018-10-11 13:49 | NUR ---
MD VISIT DR. DINERO IN. NO NEW ORDERS
--- NOTE | 2018-10-11 14:50 | NUR ---
PICC DRESSING CHANGED, MEYER CATH DC'D OOB TO CHAIR, USING ELECTRIC RAZOR. PT IN TO EVALUATE.
--- NOTE | 2018-10-11 15:38 | NUR ---
Pt.is lting in beed resting he reports doing much better encouraged pt. and offered prayers
--- NOTE | 2018-10-11 15:38 | NUR ---
CONTACTED [facility] ABOUT PATIENT. THEY WILL ASK FOR A REFERRAL FROM HIS QC CHEMIST (DR. JUAREZ)
--- NOTE | 2018-10-11 16:03 | NUR ---
MD VISIT DR. THAPA IN
--- NOTE | 2018-10-11 18:48 | NUR ---
PATIENT FEELING WELL. OOB TO CHAIR, VOIDED AFTER MEYER DC'D. NO NAUSEA. TOLERATED CLEAR LIQUIDS. HOPES TO GO HOME TOMORROW.
--- NOTE | 2018-10-11 20:00 | NUR ---
ASSUMED PT CARE: PT ALERT, CONT FEELING MUCH BETTER. DENIES PAIN, SOB, OR NAUSEA. VSS, PT IS ON RA, CONT NSR. STANDS AT BEDSIDE TO VOID. CONT ON PROTINIX GTT & CLEAR LIQUID DIET. POSSIBLE DISCHARGE IN AM. CONT TO MONITOR.
--- NOTE | 2018-10-12 02:48 | NUR ---
PT HAS BEEN RESTING QUIETLY, UP AT THIS TIME TO VOID. USING HOME CPAP ON RA. VSS. NO OTHER CHANGES.
--- NOTE | 2018-10-12 06:00 | NUR ---
PT HAS RESTED INTERMITTANTLY WITH CPAP IN PLACE, AWAKING TO USE URINAL. VSS, NO NAUSEA, NO BLEEDING. PT ANTICIPATING GOING HOME TODAY.
--- NOTE | 2018-10-12 07:47 | NUR ---
pt resting quietly in bed, wakes easily. denies any complaints of pain or needs at this time, is anxious to go home, a/ox3, pleasant and cooperative with care, follows commands well, lungs are clear dim in bases, resp even and unlabored, no cough noted, hrr, tele in place running sr with occ pvc's, no edema noted, ppp+2, cap refill <3sec, vs stable, afebrile, iv is picc to maximo site is clear and patent, btx4, abd flat soft nontender, voids without diff, skin c/w/d has tr band site to r radial, is clear, with occlusive dressing in place, jayme carr, call light in reach.
[2018-10-12 07:56] LABS: BASOPHILS ABSOLUTE AUTO 0.01 K/mm3 (0.00-0.23); BASOPHILS PERCENT AUTO 0 % (0-2); EOSINOPHILS ABSOLUTE AUTO 0.55 K/mm3 (0.00-0.68); EOSINOPHILS PERCENT AUTO 5 % (0-6); Hematocrit 27.2 % (37.0-53.0); Hemoglobin 9.1 g/dL (13.5-17.5); IMMATURE GRAN ABSOLUTE AUTO 0.14 K/mm3 (0.00-0.10); IMMATURE GRAN PERCENT AUTO 1 % (0-1); LYMPHOCYTES ABSOLUTE AUTO 1.36 K/mm3 (0.84-5.20); LYMPHOCYTES PERCENT AUTO 13 % (21-46); MONOCYTES ABSOLUTE AUTO 1.39 K/mm3 (0.16-1.47); MONOCYTES PERCENT AUTO 13 % (4-13); Mean Corpuscular HGB 28.9 pg (26.0-34.0); Mean Corpuscular HGB Conc 33.5 g/dL (31.5-36.5); Mean Corpuscular Volume 86 fL (80-100); Mean Platelet Volume 11.2 fL (9.1-12.4); NEUTROPHILS ABSOLUTE AUTO 7.17 K/mm3 (1.96-9.15); NEUTROPHILS PERCENT AUTO 68 % (41-73); Platelet Count 213 K/mm3 (150-400); RDW Coefficient Variation 14.3 % (11.7-14.2); RDW Standard Deviation 44.1 fL (35.1-46.3); Red Blood Cell Count 3.15 M/mm3 (4.30-5.90); White Blood Cell Count 10.62 K/mm3 (4.00-11.30)
[2018-10-12 08:16] LABS: Albumin, Blood 2.4 g/dL (3.4-5.0); Anion Gap 5 mmol/L (6-16); Blood Urea Nitrogen 49 mg/dL (8-24); Bun/Creatinine Ratio 32.5 (12.0-20.0); CO2, Blood 30 mmol/L (21-32); Calcium, Blood 8.3 mg/dL (8.5-10.1); Chloride, Blood 106 mmol/L (98-108); Creatinine, Blood 1.51 mg/dL (0.60-1.20); Glomerular Filtration Rate 48 (60-); Glucose, Blood 108 mg/dL (70-99); Phosphorus, Blood 3.2 mg/dL (2.5-4.9); Potassium, Blood 3.8 mmol/L (3.5-5.5); Sodium, Blood 141 mmol/L (136-145)
--- NOTE | 2018-10-12 10:06 | NUR ---
PT WILL BE TRANSFERING TO MEDICAL FLOOR WITH TELE. REPORT GIVEN TO JOAQUIM COTAES. WILL TRANSFER VIA WHEELCHAIR.
--- NOTE | 2018-10-12 10:34 | NUR ---
PT HAS BEEN TRANSFERED TO MEDICAL FLOOR, LEFT VIA WHEELCHAIR WITH UTILITY BILL COLLECTOR IN ATTENDENCE, ALL BELONGINGS WENT WITH PT.
--- NOTE | 2018-10-12 12:04 | NUR ---
LATE ENTRY 1100: PT ARRIVED TO ROOM 342 FROM ICU. A&O PLEASENT AND COOPERATIVE. ORIENTED TO ROOM, CALL LIGHT, CONTROLS, ROUTINES. PT VERB UNDERSTANDING. DENIES PAIN, NO COMPLAINTS
--- NOTE | 2018-10-12 15:34 | NUR ---
Pt. is lying in bed ,, he is doing much betterlaxed and Watching the T V, encouraged pt. and offered prayers for the pt.
--- NOTE | 2018-10-12 17:56 | NUR ---
SHIFT SUMMARY PT A&O UP IND IN ROOM. PT DENIES PAIN, NO COMPLAINTS T/O SHIFT. PT TOLERATING DIET WELL, NO N/V. PT WORKED WITH PT/OT TODAY. NO ACUTE CHANGES THIS SHIFT. PT HOPES TO GO HOME TOMORROW.
--- NOTE | 2018-10-13 06:03 | NUR ---
SHIFT SUMMARY PT IS A 77 Y/O MALE, ADMITTED FOR BILATERAL PNA. HE IS A&O X 4, AND INDEPENDENT IN THE ROOM, THOUGH SBA FOR LONGER DISTANCE AMBULATION. THE PT DENIED ANY ACUTE PAIN, SOB OR NAUSEA, AND SLEPT WELL THROUGH THE NIGHT. PT REMAINED ON CPAP DURING THE NIGHT. VITAL SIGNS STABLE. NO ACUTE CHANGES IN PT CONDITION NOTED. WILL CONTINUE TO MONITOR AND TREAT PER EMAR.
[2018-10-13 07:07] LABS: BASOPHILS ABSOLUTE AUTO 0.02 K/mm3 (0.00-0.23); BASOPHILS PERCENT AUTO 0 % (0-2); EOSINOPHILS ABSOLUTE AUTO 0.62 K/mm3 (0.00-0.68); EOSINOPHILS PERCENT AUTO 6 % (0-6); Hematocrit 28.1 % (37.0-53.0); Hemoglobin 9.5 g/dL (13.5-17.5); IMMATURE GRAN ABSOLUTE AUTO 0.14 K/mm3 (0.00-0.10); IMMATURE GRAN PERCENT AUTO 1 % (0-1); LYMPHOCYTES PERCENT AUTO 12 % (21-46); MONOCYTES ABSOLUTE AUTO 1.21 K/mm3 (0.16-1.47); MONOCYTES PERCENT AUTO 12 % (4-13); Mean Corpuscular HGB 29.5 pg (26.0-34.0); Mean Corpuscular HGB Conc 33.8 g/dL (31.5-36.5); Mean Corpuscular Volume 87 fL (80-100); NEUTROPHILS PERCENT AUTO 68 % (41-73); Platelet Count 223 K/mm3 (150-400); RDW Coefficient Variation 14.2 % (11.7-14.2); RDW Standard Deviation 44.8 fL (35.1-46.3); Red Blood Cell Count 3.22 M/mm3 (4.30-5.90); White Blood Cell Count 10.09 K/mm3 (4.00-11.30)
[2018-10-13] MEDS ORDERED: ALBU2.5V5 NEB (12:38)
[2018-10-13] MEDS ORDERED: TIOT18 INH (12:39)
[2018-10-13] MEDS ORDERED: HUMALOG KW200 UNIT/1 SC (12:40)
[2018-10-13] MEDS ORDERED: CARV3.125 PO (12:42)
--- NOTE | 2018-10-13 13:21 | NUR ---
Met pt. sitting up on his bed and talking with a visitor in the room ,pt. rep[orts to be doing well and may go home today or lawson
--- NOTE | 2018-10-13 13:31 | NUR ---
DISCHARGE DISCHARGE MEDICATIONS AND INSTRUCTIONS EXPLAINED TO PATIENT AND PATIENT'S . THEY STATED UNDERSTANDING. PICC LINE REMOVED BY CHECK OUT CASHIER. BELONGINGS WITH PATIENT. PATIENT TRANSFERED TO PRIVATE VEHICLE VIA WHEELCHAIR.
== END 2018-10-13 13:18 | disposition home or self-care (01) | DRG 246 ==
LOC: ER 04:58 → ICUW 08:52 → MEDS 10-12 10:40 → ENPENDDIS 10-13 10:50 → MEDS 10-13 13:18
PROVIDERS: Emergency Medicine; Family Medicine; Internal Medicine; Internal Medicine Critical Care Medicine; Internal Medicine Pulmonary Disease; Nurse Practitioner Acute Care; ADMIT Internal Medicine Endocrinology, Diabetes & Metabolism
PROC: 4A023N8 Measurement of Cardiac Sampling and Pressure, Bilateral, Percutaneous Approach (ICD-10-PCS; principal; 2018-10-10)
PROC: 027034Z Dilation of Coronary Artery, One Artery with Drug-eluting Intraluminal Device, Percutaneous Approach (ICD-10-PCS; 2018-10-10)
PROC: B210YZZ Fluoroscopy of Single Coronary Artery using Other Contrast (ICD-10-PCS; 2018-10-10)
DX: I24.9 Acute ischemic heart disease, unspecified (principal); I50.21 Acute systolic (congestive) heart failure; J96.21 Acute and chronic respiratory failure with hypoxia; R57.0 Cardiogenic shock; J18.9 Pneumonia, unspecified organism; I13.0 Hypertensive heart and chronic kidney disease with heart failure and stage 1 through stage 4 chronic kidney disease, or unspecified chronic kidney disease; J44.1 Chronic obstructive pulmonary disease with (acute) exacerbation; D62 Acute posthemorrhagic anemia; K92.0 Hematemesis; I25.10 Atherosclerotic heart disease of native coronary artery without angina pectoris; N18.3 Chronic kidney disease, stage 3 (moderate); E11.22 Type 2 diabetes mellitus with diabetic chronic kidney disease; Z79.4 Long term (current) use of insulin; D63.1 Anemia in chronic kidney disease; I48.0 Paroxysmal atrial fibrillation; Z79.01 Long term (current) use of anticoagulants; E11.65 Type 2 diabetes mellitus with hyperglycemia; I25.2 Old myocardial infarction
CPT/HCPCS: 36415; 51702; 71045; 71046; 71260; 80053; 80069; 81001; 82803; 82947; 83036; 83605; 83690; 83735; 83880; 84100; 84484; 85025; 85347; 85610; 85730; 87040; 87086; 87486; 87581; 87633; 87798; 93005; 93010; 93306; 93455; 94640; 94644; 94660; 94762; 96361; 96365-59; 96367; 96375-59; 97110; 97116; 97162; 97165; 97530; 99152; 99153; 99285-25; C1725; C1751; C1760; C1769; C1874; C1884; C1887; C1894; C9113; C9600; J0153; J0456; J0696; J1644; J1815; J1940; J2060; J2250; J2270; J2405; J2920; J2930; J3010; J7030; J7040; J7050; Q9967

== ENCOUNTER → 2018-11-08 | Outpatient (CLI) | payer MEDICARE, OTHER ==
[~2018-11-08] MED LIST changes: +ALBU2.5V5 NEB; +CALC.25 PO; +CARV3.125 PO; +Ferrous Sulfat325 M2 PO; +HUMALOG KW200 UNIT/1 SC; +LO-DOSE ASPIRIN81 MG PO; +Loratadine10 MG PO; +METF500C PO; +VITAMIN C500 M1 PO; +Zantac150 MG PO
[2018-11-08 11:36] LABS: Hematocrit 36.8 % (37.0-53.0); Mean Corpuscular HGB 28.5 pg (26.0-34.0); Mean Corpuscular HGB Conc 32.6 g/dL (31.5-36.5); Mean Corpuscular Volume 87 fL (80-100); Mean Platelet Volume 11.1 fL (9.1-12.4); Platelet Count 269 K/mm3 (150-400); RDW Standard Deviation 51.4 fL (35.1-46.3); Red Blood Cell Count 4.21 M/mm3 (4.30-5.90); White Blood Cell Count 7.56 K/mm3 (4.00-11.30)
[2018-11-08 11:52] LABS: Albumin, Blood 3.2 g/dL (3.4-5.0); Albumin/Globulin Ratio 0.8 (0.8-1.8); Bilirubin, Total 0.9 mg/dL (0.1-1.0); Bun/Creatinine Ratio 16.8 (12.0-20.0); Calcium, Blood 8.4 mg/dL (8.5-10.1); Creatinine, Blood 2.79 mg/dL (0.60-1.20); Globulin, Blood 4.1 g/dL (2.2-4.0); Potassium, Blood 4.3 mmol/L (3.5-5.5); Total Protein, Blood 7.3 g/dL (6.4-8.2)
[2018-11-08 12:19] LABS: BAND PERCENT MAN 27 % (0-8); BASOPHILS ABSOLUTE MAN 0.07 K/mm3 (0.00-0.23); BASOPHILS PERCENT MAN 1 % (0-2); EOSINOPHILS PERCENT MAN 0 % (0-6); LYMPHOCYTES ABSOLUTE MAN 0.75 K/mm3 (0.84-5.20); LYMPHOCYTES PERCENT MAN 10 % (21-46); MONOCYTES PERCENT MAN 12 % (4-13); NEUTROPHILS ABSOLUTE MAN 5.82 K/mm3 (1.96-9.15); SEG NEUTROPHILS PERCENT MAN 50 % (41-73); TOTAL CELLS COUNTED 100
[2018-11-08 18:34] LABS: Adenovirus F 40/41 Not Detected (NOT DETECT); Astrovirus Not Detected (NOT DETECT); Campylobacter Sp Not Detected (NOT DETECT); Cryptosporidium Not Detected (NOT DETECT); Cyclospora Cayetanensis Not Detected (NOT DETECT); E. Coli O157 Not Detected (NOT DETECT); Entamoeba Histolytica Not Detected (NOT DETECT); Enteroaggregative E. coli-EAEC Not Detected (NOT DETECT); Enteropathogenic E. coli-EPEC Not Detected (NOT DETECT); Enterotoxigenic E. coli-ETEC Not Detected (NOT DETECT); Giardia Lamblia Not Detected (NOT DETECT); Norovirus GI/GII Not Detected (NOT DETECT); Plesiomonas Shigelloides Not Detected (NOT DETECT); Rotavirus A Not Detected (NOT DETECT); Salmonella Sp Detected (NOT DETECT); Sapovirus Not Detected (NOT DETECT); Shiga Toxin-prod E. coli-STEC Not Detected (NOT DETECT); Shigella/Enteroin E. coli-EIEC Not Detected (NOT DETECT); Vibrio Cholerae Not Detected (NOT DETECT); Vibrio Sp Not Detected (NOT DETECT); Yersinia Enterocolitica Not Detected (NOT DETECT)
== END | disposition home or self-care (01) ==
LOC: LAB EV 11:26 → LAB SHORT 11:26
PROVIDERS: Physician Assistant Medical
DX: A09 Infectious gastroenteritis and colitis, unspecified (principal); R19.7 Diarrhea, unspecified
CPT/HCPCS: 80053; 85025; 87507

== ENCOUNTER → 2018-11-09 | Outpatient (CLI) | payer MEDICARE, OTHER ==
[2018-11-09 08:16] LABS: Hematocrit 35.7 % (37.0-53.0); Mean Corpuscular HGB 28.6 pg (26.0-34.0); Mean Corpuscular HGB Conc 33.6 g/dL (31.5-36.5); Mean Corpuscular Volume 85 fL (80-100); Mean Platelet Volume 11.4 fL (9.1-12.4); Platelet Count 260 K/mm3 (150-400); RDW Coefficient Variation 15.6 % (11.7-14.2); RDW Standard Deviation 47.6 fL (35.1-46.3); White Blood Cell Count 8.03 K/mm3 (4.00-11.30)
[2018-11-09 08:27] LABS: Albumin/Globulin Ratio 0.7 (0.8-1.8); Bilirubin, Total 0.6 mg/dL (0.1-1.0); Calcium, Blood 7.9 mg/dL (8.5-10.1); Creatinine, Blood 2.95 mg/dL (0.60-1.20); Globulin, Blood 4.1 g/dL (2.2-4.0); Potassium, Blood 3.7 mmol/L (3.5-5.5); Total Protein, Blood 7.1 g/dL (6.4-8.2)
[2018-11-09 09:07] LABS: BAND PERCENT MAN 49 % (0-8); BASOPHILS PERCENT MAN 0 % (0-2); EOSINOPHILS PERCENT MAN 0 % (0-6); LYMPHOCYTES ABSOLUTE MAN 0.96 K/mm3 (0.84-5.20); LYMPHOCYTES PERCENT MAN 12 % (21-46); METAMYELOCYTE ABSOLUTE MAN 0.64 K/mm3 (0.00-0.00); METAMYELOCYTE PERCENT MAN 8 % (0-0); MONOCYTES ABSOLUTE MAN 0.56 K/mm3 (0.16-1.47); MONOCYTES PERCENT MAN 7 % (4-13); NEUTROPHILS ABSOLUTE MAN 5.86 K/mm3 (1.96-9.15); SEG NEUTROPHILS PERCENT MAN 24 % (41-73); TOTAL CELLS COUNTED 100
== END | disposition home or self-care (01) ==
LOC: LAB SHORT 08:11 → LAB EV 08:11
PROVIDERS: Physician Assistant Medical
DX: A09 Infectious gastroenteritis and colitis, unspecified (principal)
CPT/HCPCS: 80053; 85025

== ENCOUNTER → 2018-11-10 | Outpatient (CLI) | payer MEDICARE, OTHER ==
[2018-11-10 08:07] LABS: BASOPHILS ABSOLUTE AUTO 0.02 K/mm3 (0.00-0.23); BASOPHILS PERCENT AUTO 0 % (0-2); EOSINOPHILS ABSOLUTE AUTO 0.02 K/mm3 (0.00-0.68); EOSINOPHILS PERCENT AUTO 0 % (0-6); Hematocrit 32.6 % (37.0-53.0); Hemoglobin 11.2 g/dL (13.5-17.5); IMMATURE GRAN ABSOLUTE AUTO 0.04 K/mm3 (0.00-0.10); IMMATURE GRAN PERCENT AUTO 1 % (0-1); LYMPHOCYTES ABSOLUTE AUTO 0.41 K/mm3 (0.84-5.20); LYMPHOCYTES PERCENT AUTO 6 % (21-46); MONOCYTES ABSOLUTE AUTO 0.91 K/mm3 (0.16-1.47); MONOCYTES PERCENT AUTO 14 % (4-13); Mean Corpuscular HGB 28.4 pg (26.0-34.0); Mean Corpuscular HGB Conc 34.4 g/dL (31.5-36.5); Mean Corpuscular Volume 83 fL (80-100); Mean Platelet Volume 12.2 fL (9.1-12.4); NEUTROPHILS ABSOLUTE AUTO 5.25 K/mm3 (1.96-9.15); NEUTROPHILS PERCENT AUTO 79 % (41-73); Platelet Count 231 K/mm3 (150-400); RDW Coefficient Variation 15.3 % (11.7-14.2); RDW Standard Deviation 46.4 fL (35.1-46.3); Red Blood Cell Count 3.95 M/mm3 (4.30-5.90); White Blood Cell Count 6.65 K/mm3 (4.00-11.30)
[2018-11-10 08:18] LABS: Albumin, Blood 2.6 g/dL (3.4-5.0); Albumin/Globulin Ratio 0.7 (0.8-1.8); Bilirubin, Total 0.4 mg/dL (0.1-1.0); Bun/Creatinine Ratio 27.6 (12.0-20.0); Creatinine, Blood 2.03 mg/dL (0.60-1.20); Globulin, Blood 3.9 g/dL (2.2-4.0); Potassium, Blood 3.5 mmol/L (3.5-5.5); Total Protein, Blood 6.5 g/dL (6.4-8.2)
[2018-11-10 09:04] LABS: BAND PERCENT MAN 28 % (0-8); BASOPHILS PERCENT MAN 0 % (0-2); EOSINOPHILS PERCENT MAN 0 % (0-6); METAMYELOCYTE ABSOLUTE MAN 0.06 K/mm3 (0.00-0.00); METAMYELOCYTE PERCENT MAN 1 % (0-0); MONOCYTES ABSOLUTE MAN 0.59 K/mm3 (0.16-1.47); MONOCYTES PERCENT MAN 9 % (4-13); NEUTROPHILS ABSOLUTE MAN 5.12 K/mm3 (1.96-9.15); SEG NEUTROPHILS PERCENT MAN 49 % (41-73); TOTAL CELLS COUNTED 100
[2018-11-10 09:05] LABS: LYMPHOCYTES ABSOLUTE MAN 0.86 K/mm3 (0.84-5.20); LYMPHOCYTES PERCENT MAN 13 % (21-46)
== END | disposition home or self-care (01) ==
LOC: LAB SHORT 07:59 → LAB EV 07:59
PROVIDERS: Family Medicine
DX: A09 Infectious gastroenteritis and colitis, unspecified (principal)
CPT/HCPCS: 80053; 85025

== ENCOUNTER → 2018-11-12 | Outpatient (CLI) | payer MEDICARE, OTHER ==
[2018-11-12 10:33] LABS: BASOPHILS ABSOLUTE AUTO 0.02 K/mm3 (0.00-0.23); BASOPHILS PERCENT AUTO 0 % (0-2); EOSINOPHILS ABSOLUTE AUTO 0.11 K/mm3 (0.00-0.68); EOSINOPHILS PERCENT AUTO 2 % (0-6); Hematocrit 32.3 % (37.0-53.0); IMMATURE GRAN ABSOLUTE AUTO 0.04 K/mm3 (0.00-0.10); IMMATURE GRAN PERCENT AUTO 1 % (0-1); LYMPHOCYTES ABSOLUTE AUTO 0.92 K/mm3 (0.84-5.20); LYMPHOCYTES PERCENT AUTO 17 % (21-46); MONOCYTES ABSOLUTE AUTO 0.84 K/mm3 (0.16-1.47); MONOCYTES PERCENT AUTO 16 % (4-13); Mean Corpuscular HGB 28.1 pg (26.0-34.0); Mean Corpuscular HGB Conc 34.1 g/dL (31.5-36.5); Mean Corpuscular Volume 82 fL (80-100); Mean Platelet Volume 11.9 fL (9.1-12.4); NEUTROPHILS ABSOLUTE AUTO 3.48 K/mm3 (1.96-9.15); NEUTROPHILS PERCENT AUTO 64 % (41-73); Platelet Count 259 K/mm3 (150-400); RDW Coefficient Variation 15.6 % (11.7-14.2); RDW Standard Deviation 46.8 fL (35.1-46.3); Red Blood Cell Count 3.92 M/mm3 (4.30-5.90); White Blood Cell Count 5.41 K/mm3 (4.00-11.30)
[2018-11-12 10:43] LABS: Albumin, Blood 2.6 g/dL (3.4-5.0); Albumin/Globulin Ratio 0.7 (0.8-1.8); Bilirubin, Total 0.4 mg/dL (0.1-1.0); Bun/Creatinine Ratio 26.6 (12.0-20.0); Creatinine, Blood 1.88 mg/dL (0.60-1.20); Globulin, Blood 3.5 g/dL (2.2-4.0); Potassium, Blood 3.3 mmol/L (3.5-5.5); Total Protein, Blood 6.1 g/dL (6.4-8.2)
== END ==
LOC: LAB EV 10:18 → LAB SHORT 10:18
PROVIDERS: Nurse Practitioner
DX: R00.1 Bradycardia, unspecified (principal); M62.81 Muscle weakness (generalized)
CPT/HCPCS: 80053; 82550; 83605; 85025

== ENCOUNTER 2018-11-18 09:13 | Inpatient (IN) | payer MEDICARE, OTHER ==
[~2018-11-18] VITALS: Ht 170.2 cm; Wt 80.9 kg
[~2018-11-18 09:13] MED LIST changes: -HUMALOG KW200 UNIT/1 SC; +LOSA25 PO; -LOSA50 PO; +NOVOLOG FL100 UNIT/1 SC; -TOCO1000 PO; +Vitamin E PO
[2018-11-18] MEDS ORDERED: Zantac150 MG PO (09:51)
[2018-11-18] MEDS ORDERED: POTA10T PO (09:52)
[2018-11-18] MEDS ORDERED: Isosorbide Mono30 MG PO (09:54)
[2018-11-18] MEDS ORDERED: FURO40 PO (09:55)
[2018-11-18] MEDS ORDERED: METF500 PO (09:56)
[2018-11-18 10:23] LABS: PCO2 Arterial 36.4 mmHg (35-45); PO2 Arterial 69.6 mmHg (80-100)
[2018-11-18 10:28] LABS: BASOPHILS ABSOLUTE AUTO 0.05 K/mm3 (0.00-0.23); BASOPHILS PERCENT AUTO 0 % (0-2); EOSINOPHILS ABSOLUTE AUTO 0.11 K/mm3 (0.00-0.68); EOSINOPHILS PERCENT AUTO 1 % (0-6); Hematocrit 32.8 % (37.0-53.0); Hemoglobin 10.1 g/dL (13.5-17.5); IMMATURE GRAN ABSOLUTE AUTO 0.16 K/mm3 (0.00-0.10); IMMATURE GRAN PERCENT AUTO 1 % (0-1); LYMPHOCYTES ABSOLUTE AUTO 1.12 K/mm3 (0.84-5.20); LYMPHOCYTES PERCENT AUTO 10 % (21-46); MONOCYTES PERCENT AUTO 8 % (4-13); Mean Corpuscular HGB 27.6 pg (26.0-34.0); Mean Corpuscular HGB Conc 30.8 g/dL (31.5-36.5); Mean Platelet Volume 10.6 fL (9.1-12.4); NEUTROPHILS ABSOLUTE AUTO 8.97 K/mm3 (1.96-9.15); NEUTROPHILS PERCENT AUTO 79 % (41-73); Platelet Count 296 K/mm3 (150-400); RDW Coefficient Variation 17.1 % (11.7-14.2); Red Blood Cell Count 3.66 M/mm3 (4.30-5.90); White Blood Cell Count 11.31 K/mm3 (4.00-11.30)
[2018-11-18 10:29] LABS: Mean Corpuscular Volume 90 fL (80-100)
[2018-11-18 10:44] LABS: Alanine Aminotransfer (ALT/SGP 24 U/L (12-78); Albumin, Blood 2.8 g/dL (3.4-5.0); Albumin/Globulin Ratio 0.8 (0.8-1.8); Alk Phos 89 U/L (50-136); Anion Gap 8 mmol/L (6-16); Aspartate Aminotrans (AST/SGOT 19 U/L (12-37); Bilirubin, Total 0.6 mg/dL (0.1-1.0); Blood Urea Nitrogen 14 mg/dL (8-24); Bun/Creatinine Ratio 12.4 (12.0-20.0); CO2, Blood 29 mmol/L (21-32); Calcium, Blood 8.9 mg/dL (8.5-10.1); Chloride, Blood 107 mmol/L (98-108); Creatinine, Blood 1.13 mg/dL (0.60-1.20); Globulin, Blood 3.5 g/dL (2.2-4.0); Glomerular Filtration Rate >60 (60-); Glucose, Blood 120 mg/dL (70-99); Potassium, Blood 4.4 mmol/L (3.5-5.5); Sodium, Blood 144 mmol/L (136-145); Total Protein, Blood 6.3 g/dL (6.4-8.2); Troponin I 0.093 ng/mL (0.000-0.040)
[2018-11-18] MEDS ORDERED: AMLO5 PO (14:27)
[2018-11-18] MEDS ORDERED: TRULICITY0.75 MG/0. SC (15:37)
[2018-11-18 23:54] LABS: Adenovirus Not Detected (NOT DETECT); Bordetella pertussis Not Detected (NOT DETECT); Chlamydophila pneumoniae Not Detected (NOT DETECT); Coronavirus 229E Not Detected (NOT DETECT); Coronavirus HKU1 Not Detected (NOT DETECT); Coronavirus NL63 Not Detected (NOT DETECT); Coronavirus OC43 Not Detected (NOT DETECT); Human Metapneumovirus Not Detected (NOT DETECT); Human Rhinovirus/Enterovirus Not Detected (NOT DETECT); Influenza A Not Detected (NOT DETECT); Influenza A/2009-H1 Not Detected (NOT DETECT); Influenza A/H1 Not Detected (NOT DETECT); Influenza A/H3 Not Detected (NOT DETECT); Influenza B Not Detected (NOT DETECT); Mycoplasma pneumoniae Not Detected (NOT DETECT); Parainfluenza Virus 1 Not Detected (NOT DETECT); Parainfluenza Virus 2 Not Detected (NOT DETECT); Parainfluenza Virus 3 Not Detected (NOT DETECT); Parainfluenza Virus 4 Not Detected (NOT DETECT); Respiratory Syncytial Virus Not Detected (NOT DETECT)
[2018-11-19 05:40] LABS: BASOPHILS ABSOLUTE AUTO 0.08 K/mm3 (0.00-0.23); BASOPHILS PERCENT AUTO 1 % (0-2); EOSINOPHILS ABSOLUTE AUTO 0.15 K/mm3 (0.00-0.68); EOSINOPHILS PERCENT AUTO 1 % (0-6); Hematocrit 32.3 % (37.0-53.0); Hemoglobin 10.1 g/dL (13.5-17.5); IMMATURE GRAN ABSOLUTE AUTO 0.09 K/mm3 (0.00-0.10); IMMATURE GRAN PERCENT AUTO 1 % (0-1); LYMPHOCYTES ABSOLUTE AUTO 1.71 K/mm3 (0.84-5.20); LYMPHOCYTES PERCENT AUTO 14 % (21-46); MONOCYTES ABSOLUTE AUTO 1.37 K/mm3 (0.16-1.47); MONOCYTES PERCENT AUTO 11 % (4-13); Mean Corpuscular HGB 28.1 pg (26.0-34.0); Mean Corpuscular HGB Conc 31.3 g/dL (31.5-36.5); Mean Corpuscular Volume 90 fL (80-100); Mean Platelet Volume 10.3 fL (9.1-12.4); NEUTROPHILS ABSOLUTE AUTO 9.22 K/mm3 (1.96-9.15); NEUTROPHILS PERCENT AUTO 73 % (41-73); Platelet Count 318 K/mm3 (150-400); RDW Standard Deviation 55.9 fL (35.1-46.3); Red Blood Cell Count 3.59 M/mm3 (4.30-5.90); White Blood Cell Count 12.62 K/mm3 (4.00-11.30)
--- NOTE | 2018-11-19 05:50 | NUR ---
SHIFT SUMMARY PT VEW SCORE A 6 EARLY ON IN SHIFT, HOSPITALIST NOTIFIED AND ORDERS RECEIVED. PT ALSO HAD EPISODE OF CHEST PAIN AND INCREASED SHORTNESS OF BREATH WITH LABORED RESPIRATIONS, EKG DONE AND ALSO PT RECEIVED RT TREATMENT. HOSPTALIST CALLED ON THIS WELL. PT USING CPAP DURING THE NIGHT, SLEPT FAIR. USES URINAL AT BEDSIDE PER SELF. UP TO BATHROOM WITH ASSIST FOR BM WELL. ALERT AND ORIENTED X3. TELEMETRY SHOWS SINUS TACH, WILL CONTINUE TO MONITOR.
[2018-11-19 06:00] LABS: Albumin, Blood 2.7 g/dL (3.4-5.0); Albumin/Globulin Ratio 0.8 (0.8-1.8); Bilirubin, Total 0.8 mg/dL (0.1-1.0); Bun/Creatinine Ratio 12.3 (12.0-20.0); Calcium, Blood 8.5 mg/dL (8.5-10.1); Creatinine, Blood 1.3 mg/dL (0.60-1.20); Globulin, Blood 3.5 g/dL (2.2-4.0); Potassium, Blood 4.2 mmol/L (3.5-5.5); Total Protein, Blood 6.2 g/dL (6.4-8.2); Troponin I 0.086 ng/mL (0.000-0.040)
[2018-11-19 16:32] LABS: Adenovirus F 40/41 Not Detected (NOT DETECT); Astrovirus Not Detected (NOT DETECT); Campylobacter Sp Not Detected (NOT DETECT); Cryptosporidium Not Detected (NOT DETECT); Cyclospora Cayetanensis Not Detected (NOT DETECT); E. Coli O157 Not Detected (NOT DETECT); Entamoeba Histolytica Not Detected (NOT DETECT); Enteroaggregative E. coli-EAEC Not Detected (NOT DETECT); Enteropathogenic E. coli-EPEC Not Detected (NOT DETECT); Enterotoxigenic E. coli-ETEC Not Detected (NOT DETECT); Giardia Lamblia Not Detected (NOT DETECT); Norovirus GI/GII Not Detected (NOT DETECT); Plesiomonas Shigelloides Not Detected (NOT DETECT); Rotavirus A Not Detected (NOT DETECT); Salmonella Sp Not Detected (NOT DETECT); Sapovirus Not Detected (NOT DETECT); Shiga Toxin-prod E. coli-STEC Not Detected (NOT DETECT); Shigella/Enteroin E. coli-EIEC Not Detected (NOT DETECT); Vibrio Cholerae Not Detected (NOT DETECT); Vibrio Sp Not Detected (NOT DETECT); Yersinia Enterocolitica Not Detected (NOT DETECT)
--- NOTE | 2018-11-19 18:00 | NUR ---
SHIFT SUMMARY PT AXO, PLEASANT AND COOPERATIVE WITH CARE. CONTINUES TO COMPLAIN OF FEELING SOB. WEARS HIS C-PAP WHILE SLEEPING WHICH WAS MOST OF THE SHIFT. VSS, AFEBRILE. STOOL PCR NEGATIVE, SEE LABS. CBG THIS SHIFT WERE 69, 153, 97 AND THEN 60 AT DINNER TIME. THIS MORNING NURSE VERIFIED WITH DR BAEZA THAT IT WAS OKAY TO GIVE MORNING MEDS ORDERED. THEN AT DINNER TIME NURSE CALLED INTEGRATED LOGISTICS PROGRAMS DIRECTOR HOSPITALIST TO VERYIFY NURSE COULD GIVE METFORMIN. REINALDO HUTSON THEN HAVE ORDERS TO CUT DOSE OF LANTUS TONIGHT FROM 50 UNITS TO 25 UNITS. NURSE ENTERED A ONE TIME DOSE OF 25ML AND CHARTED THE SCHEDULED DOSE NOT GIVEN. NURSE WILL EXPLAIN TO SAWMILL RELIEF WORKER NURSE AT SHIFT CHANGE. NO OTHER CHANGES THIS SHIFT. BED IN LOW POSITION, CALL LIGHT WITHIN REACH.
[2018-11-20 05:28] LABS: BASOPHILS ABSOLUTE AUTO 0.05 K/mm3 (0.00-0.23); BASOPHILS PERCENT AUTO 1 % (0-2); EOSINOPHILS ABSOLUTE AUTO 0.18 K/mm3 (0.00-0.68); EOSINOPHILS PERCENT AUTO 2 % (0-6); Hematocrit 32.4 % (37.0-53.0); IMMATURE GRAN ABSOLUTE AUTO 0.06 K/mm3 (0.00-0.10); IMMATURE GRAN PERCENT AUTO 1 % (0-1); LYMPHOCYTES ABSOLUTE AUTO 1.56 K/mm3 (0.84-5.20); LYMPHOCYTES PERCENT AUTO 20 % (21-46); MONOCYTES ABSOLUTE AUTO 0.85 K/mm3 (0.16-1.47); MONOCYTES PERCENT AUTO 11 % (4-13); Mean Corpuscular HGB 27.9 pg (26.0-34.0); Mean Corpuscular HGB Conc 30.9 g/dL (31.5-36.5); Mean Corpuscular Volume 90 fL (80-100); Mean Platelet Volume 9.5 fL (9.1-12.4); NEUTROPHILS ABSOLUTE AUTO 5.14 K/mm3 (1.96-9.15); NEUTROPHILS PERCENT AUTO 66 % (41-73); Platelet Count 297 K/mm3 (150-400); RDW Coefficient Variation 16.8 % (11.7-14.2); RDW Standard Deviation 55.8 fL (35.1-46.3); Red Blood Cell Count 3.59 M/mm3 (4.30-5.90); White Blood Cell Count 7.84 K/mm3 (4.00-11.30)
[2018-11-20 05:45] LABS: Albumin, Blood 2.5 g/dL (3.4-5.0); Anion Gap 6 mmol/L (6-16); Blood Urea Nitrogen 21 mg/dL (8-24); Bun/Creatinine Ratio 13.5 (12.0-20.0); CO2, Blood 30 mmol/L (21-32); Calcium, Blood 8.9 mg/dL (8.5-10.1); Chloride, Blood 105 mmol/L (98-108); Creatinine, Blood 1.55 mg/dL (0.60-1.20); Glomerular Filtration Rate 46 (60-); Glucose, Blood 74 mg/dL (70-99); Magnesium, Blood 1.5 mg/dL (1.6-2.4); Phosphorus, Blood 4.2 mg/dL (2.5-4.9); Potassium, Blood 3.9 mmol/L (3.5-5.5); Sodium, Blood 141 mmol/L (136-145)
--- NOTE | 2018-11-20 06:16 | NUR ---
SHIFT SUMMARY PT STATES HE SLEPT WELL DURING THE NIGHT, CPAP ON DURING THE NIGHT. USES URINAL AT BEDSIDE, ALERT AND ORIENTED. NO ACUTE EVENTS NOTED DURING THE NIGHT. PT DID HAVE A LOOSE BM DURING THE NIGHT. WILL CONTINUE TO MONITOR.
--- NOTE | 2018-11-20 09:05 | NUR ---
VAM THIS IV IS LOCATED IN LAC
--- NOTE | 2018-11-20 19:16 | NUR ---
SHIFT SUMMARY PT AXO, PLEASANT AND COOPERATIVE WITH CARE. DENIES PAIN. STATES THAT HIS SOB IS IMPROVING. BP AT 181 WAS 97/53, SO SOME MEDS HELD PER EMAR, SEE EMAR. PT PT UP AD KARMEN IN ROOM. IMMODIUM GIVEN PER EMAR.BED IN LOW POSITION, CALL LIGHT WITHIN REACH. HOME O2 EVAL TODAY, SEE NOTE. PT WILL NEED HOME O2 FOR EXERTION. PT WILL NEED O2 DELIVERED FROM [facility] PRIOR TO DC BECAUSE PT WILL EXERT HIMSELF GETTING FROM THE CARE INTO HIS HOME. REPORT GIVEN TO FISH AND GAME CLUB MANAGER NURSE WHO ASSUMES CARE AT THIS TIME
[2018-11-21 05:49] LABS: BASOPHILS ABSOLUTE AUTO 0.08 K/mm3 (0.00-0.23); BASOPHILS PERCENT AUTO 1 % (0-2); EOSINOPHILS ABSOLUTE AUTO 0.13 K/mm3 (0.00-0.68); EOSINOPHILS PERCENT AUTO 1 % (0-6); Hematocrit 34.1 % (37.0-53.0); Hemoglobin 10.5 g/dL (13.5-17.5); IMMATURE GRAN ABSOLUTE AUTO 0.06 K/mm3 (0.00-0.10); IMMATURE GRAN PERCENT AUTO 1 % (0-1); LYMPHOCYTES ABSOLUTE AUTO 1.23 K/mm3 (0.84-5.20); LYMPHOCYTES PERCENT AUTO 13 % (21-46); MONOCYTES ABSOLUTE AUTO 0.83 K/mm3 (0.16-1.47); MONOCYTES PERCENT AUTO 9 % (4-13); Mean Corpuscular HGB 27.7 pg (26.0-34.0); Mean Corpuscular HGB Conc 30.8 g/dL (31.5-36.5); Mean Corpuscular Volume 90 fL (80-100); Mean Platelet Volume 10.5 fL (9.1-12.4); NEUTROPHILS ABSOLUTE AUTO 7.43 K/mm3 (1.96-9.15); NEUTROPHILS PERCENT AUTO 76 % (41-73); Platelet Count 379 K/mm3 (150-400); RDW Coefficient Variation 16.3 % (11.7-14.2); RDW Standard Deviation 53.9 fL (35.1-46.3); Red Blood Cell Count 3.79 M/mm3 (4.30-5.90); White Blood Cell Count 9.76 K/mm3 (4.00-11.30)
--- NOTE | 2018-11-21 06:03 | NUR ---
SHIFT SUMMARY PT SLEPT WELL T/O NIGHT. THIS AM, HOWEVER, PT STATED HE THINKS HIS BLOOD SUGAR IS LOW. CBG DONE AND WAS 43, RECHECKED AFTER OJ AND WAS 49. PT STARTED TO FEEL LIGHTHEADED AND DIZZY. HOSPITALIST CALLED AND ORDERS RECEIVED FOR AMP D50. GIVEN WITHOUT DIFFICULTY. PT CONTINUES TO WEAR CPAP T/O NIGHT AND MORNING. DENIES ANY OTHER C/O'S. WILL CONTINUE TO MONITOR.
[2018-11-21 06:37] LABS: Magnesium, Blood 1.6 mg/dL (1.6-2.4)
[2018-11-21 06:46] LABS: Albumin, Blood 2.7 g/dL (3.4-5.0); Anion Gap 6 mmol/L (6-16); Blood Urea Nitrogen 23 mg/dL (8-24); Bun/Creatinine Ratio 14.9 (12.0-20.0); CO2, Blood 29 mmol/L (21-32); Chloride, Blood 106 mmol/L (98-108); Creatinine, Blood 1.54 mg/dL (0.60-1.20); Glomerular Filtration Rate 47 (60-); Glucose, Blood 42 mg/dL (70-99); Phosphorus, Blood 4.1 mg/dL (2.5-4.9); Potassium, Blood 3.8 mmol/L (3.5-5.5); Sodium, Blood 141 mmol/L (136-145)
[2018-11-21] MEDS ORDERED: VITAMIN C500 MG PO (08:23)
[2018-11-21] MEDS ORDERED: CARV6.25 PO (08:24)
[2018-11-21] MEDS ORDERED: SPIR25 PO (08:25)
--- NOTE | 2018-11-21 14:53 | NUR ---
DISCHARGE PT DISCHARGED TO HOME. THIS RN EXPLAINED DISCHARGE INSTRUCTIONS AND MEDICATIONS TO PT AND HE REPORTS HE UNDERSTANDS. [facility]. IV REMOVED WITHOUT DIFFICULTY. PT TRANSFERRED TO PRIVATE VEHICLE VIA WHEELCHAIR. PT'S BELONGINGS WITH PT AND PT'S SPOUSE.
== END 2018-11-21 14:48 | disposition home health service (06) | DRG 291 ==
LOC: ER 09:13 → MEDS 15:14 → EDPENDDIS 11-21 09:47 → ENPENDDIS 11-21 09:47 → MEDS 11-21 14:48
PROVIDERS: Emergency Medicine; ADMIT Internal Medicine Gastroenterology
DX: I13.0 Hypertensive heart and chronic kidney disease with heart failure and stage 1 through stage 4 chronic kidney disease, or unspecified chronic kidney disease (principal); I50.23 Acute on chronic systolic (congestive) heart failure; E78.00 Pure hypercholesterolemia, unspecified; F43.10 Post-traumatic stress disorder, unspecified; G47.30 Sleep apnea, unspecified; I25.10 Atherosclerotic heart disease of native coronary artery without angina pectoris; I25.2 Old myocardial infarction; K21.9 Gastro-esophageal reflux disease without esophagitis; J44.9 Chronic obstructive pulmonary disease, unspecified; F32.9 Major depressive disorder, single episode, unspecified; Z95.1 Presence of aortocoronary bypass graft; Z95.5 Presence of coronary angioplasty implant and graft; N18.9 Chronic kidney disease, unspecified; E11.22 Type 2 diabetes mellitus with diabetic chronic kidney disease; I48.0 Paroxysmal atrial fibrillation; I25.5 Ischemic cardiomyopathy; D64.9 Anemia, unspecified; Z79.01 Long term (current) use of anticoagulants; Z87.891 Personal history of nicotine dependence; Z66 Do not resuscitate
CPT/HCPCS: 36415; 36600; 71046; 80053; 80069; 82803; 82947; 83605; 83735; 83880; 84145; 84484; 85025; 87040; 87486; 87507; 87581; 87633; 87798; 93005; 93010; 94640; 94761; 94762; 96374; 99285-25; J0456; J0696; J1940; J7030; J7050; J7799

== ENCOUNTER 2018-12-20 16:04 | Inpatient (IN) | payer MEDICARE, OTHER ==
[~2018-12-20] VITALS: Ht 170.2 cm; Wt 78.5 kg
[~2018-12-20 16:04] MED LIST changes: +CARV6.25 PO; +METF500 PO; +SPIR25 PO; +TRULICITY0.75 MG/0. SC; +VITAMIN C500 MG PO
[2018-12-20 16:28] LABS: BASOPHILS ABSOLUTE AUTO 0.05 K/mm3 (0.00-0.23); BASOPHILS PERCENT AUTO 1 % (0-2); EOSINOPHILS ABSOLUTE AUTO 0.26 K/mm3 (0.00-0.68); EOSINOPHILS PERCENT AUTO 3 % (0-6); Hematocrit 23.8 % (37.0-53.0); Hemoglobin 7.3 g/dL (13.5-17.5); IMMATURE GRAN ABSOLUTE AUTO 0.04 K/mm3 (0.00-0.10); IMMATURE GRAN PERCENT AUTO 1 % (0-1); LYMPHOCYTES ABSOLUTE AUTO 1.23 K/mm3 (0.84-5.20); LYMPHOCYTES PERCENT AUTO 14 % (21-46); MONOCYTES ABSOLUTE AUTO 1.05 K/mm3 (0.16-1.47); MONOCYTES PERCENT AUTO 12 % (4-13); Mean Corpuscular HGB 27.1 pg (26.0-34.0); Mean Corpuscular HGB Conc 30.7 g/dL (31.5-36.5); Mean Corpuscular Volume 89 fL (80-100); Mean Platelet Volume 10.6 fL (9.1-12.4); NEUTROPHILS PERCENT AUTO 70 % (41-73); Platelet Count 223 K/mm3 (150-400); RDW Standard Deviation 56.8 fL (35.1-46.3); Red Blood Cell Count 2.69 M/mm3 (4.30-5.90); White Blood Cell Count 8.83 K/mm3 (4.00-11.30)
[2018-12-20 17:01] LABS: Bilirubin, Total 0.7 mg/dL (0.1-1.0); Bun/Creatinine Ratio 31.2 (12.0-20.0); Calcium, Blood 9.2 mg/dL (8.5-10.1); Creatinine, Blood 1.86 mg/dL (0.60-1.20); Potassium, Blood 4.8 mmol/L (3.5-5.5); Troponin I 0.028 ng/mL (0.000-0.040)
[2018-12-20] MEDS ORDERED: ALBU90OI61 INH (19:36)
[2018-12-20] MEDS ORDERED: LOSA25 PO (19:43)
[2018-12-20] MEDS ORDERED: MOME220I INH (19:43)
[2018-12-20] MEDS ORDERED: NITR.4SL SL (19:45)
[2018-12-20] MEDS ORDERED: POTA10T PO (19:46)
--- NOTE | 2018-12-20 20:11 | NUR ---
Pt arrived to PCU via stretcher with RN at bedside at 2017. Pt able to transfer self [place] bed without assistance. VSS. SR per monitor technician. Pt is alert and oriented, converses without SOB. Pt stated mild SOB with ambulation. Pt responds appropriately. Pt arrived to PCU 15 recieving the first of two ordered units of blood, on 4L NC. Pt titrated down to 3L NC with o2 sats>95. Pt denies CP or pressure. Pt with home CPAP at bedside, RT in to help set up at this time. Will assess and update as needed.
[2018-12-20] MEDS ORDERED: CARV6.25 PO (22:43)
[2018-12-20] MEDS ORDERED: FLUO10 PO (22:46)
[2018-12-20] MEDS ORDERED: Loratadine10 MG PO (22:52)
[2018-12-21 00:25] LABS: Hemoglobin 8.5 g/dL (13.5-17.5)
--- NOTE | 2018-12-21 05:21 | NUR ---
Shift Summary No acute changes this shift. VSS. Blood transfusion completed at approx 2230 with no adverse problems. hbg increased to 8.5. Abd remains firm, nontender. No obvious signs of bleed. Pt with increased SOB with ambulation. Lower lobes diminished with crackles. Pt with CPAP at night, compliant and self managed. CL diet, no reds. Flavio consulted, added to ADM this am by this RN. Pt remains alert and oriented, no changes in mentation noted. No events on tele. Will continue to monitor and update as needed.
[2018-12-21 07:45] LABS: Hemoglobin 9.1 g/dL (13.5-17.5)
[2018-12-21 07:46] LABS: BASOPHILS ABSOLUTE AUTO 0.04 K/mm3 (0.00-0.23); BASOPHILS PERCENT AUTO 0 % (0-2); EOSINOPHILS ABSOLUTE AUTO 0.34 K/mm3 (0.00-0.68); EOSINOPHILS PERCENT AUTO 3 % (0-6); Hematocrit 28.8 % (37.0-53.0); Hemoglobin 9.1 g/dL (13.5-17.5); IMMATURE GRAN ABSOLUTE AUTO 0.05 K/mm3 (0.00-0.10); IMMATURE GRAN PERCENT AUTO 1 % (0-1); LYMPHOCYTES ABSOLUTE AUTO 1.37 K/mm3 (0.84-5.20); LYMPHOCYTES PERCENT AUTO 13 % (21-46); MONOCYTES ABSOLUTE AUTO 1.05 K/mm3 (0.16-1.47); MONOCYTES PERCENT AUTO 10 % (4-13); Mean Corpuscular HGB 27.7 pg (26.0-34.0); Mean Corpuscular HGB Conc 31.6 g/dL (31.5-36.5); Mean Corpuscular Volume 88 fL (80-100); Mean Platelet Volume 9.8 fL (9.1-12.4); NEUTROPHILS ABSOLUTE AUTO 8.06 K/mm3 (1.96-9.15); NEUTROPHILS PERCENT AUTO 74 % (41-73); Platelet Count 222 K/mm3 (150-400); RDW Coefficient Variation 19.2 % (11.7-14.2); RDW Standard Deviation 54.6 fL (35.1-46.3); Red Blood Cell Count 3.28 M/mm3 (4.30-5.90); White Blood Cell Count 10.91 K/mm3 (4.00-11.30)
[2018-12-21 08:09] LABS: Albumin, Blood 3.2 g/dL (3.4-5.0); Bilirubin, Total 1.3 mg/dL (0.1-1.0); Bun/Creatinine Ratio 31.7 (12.0-20.0); Calcium, Blood 9.2 mg/dL (8.5-10.1); Creatinine, Blood 1.64 mg/dL (0.60-1.20); Globulin, Blood 3.2 g/dL (2.2-4.0); Potassium, Blood 4.4 mmol/L (3.5-5.5); Total Protein, Blood 6.4 g/dL (6.4-8.2); Troponin I 0.033 ng/mL (0.000-0.040)
--- NOTE | 2018-12-21 12:50 | NUR ---
INTO SDS VIA [facility]. PT VERY SOB WITH MINIMAL EXERTION. LUNGS TIGHT THROUGH OUT FINE CRACKLES TO BASES RIGHT>LEFT. MAINTAINS SATS>90% ON 2 LITERS NASAL CANULA. DUO NEB GIVEN. HISTORY AND ALLERGIES REVIEWED. NPO STATUS CONFIRMED. RIGHT EYE BRUISED AND SCLERA REDENED. PT STATES THAT HE HAS "EYE SURGERY" RECENTLY. CBG-[id number].
--- NOTE | 2018-12-21 12:57 | NUR ---
12/21/18 1257 Gerber Vergara History, Chart, Medications and Allergies reviewed before start of procedure.MONITOR INTACT WITH CONTINUOUS PULSE OXIMETRY AND INTERMITTENT BP.3-LEAD EKG REVIEWED WITH PHYSICIAN PRIOR TO START OF PROCEDURE.O2 VIA N/C INTACT THROUGHOUT SEDATION/PROCEDURE. Patient confirms NPO status and agrees with scheduled surgery.See Anesthesia record.
[2018-12-21 16:25] LABS: Hematocrit 27.7 % (37.0-53.0); Hemoglobin 8.8 g/dL (13.5-17.5)
--- NOTE | 2018-12-21 18:22 | NUR ---
SHIFT SUMMARY PT RESTING IN BED THROUGHOUT THE DAY. VSS. ALERT AND ORIENTED X3. C/O 4/10 BACK PAIN, HEATING PAD PROVIDED, PT STATES IT IS HELPING. LUNG SOUNDS CLEAR, DIMINISHED BASES. DYSPNEA ON EXERTION WHICH SEEMS TO BE IMPROVING THIS AFTERNOON. NSR WITH PVCs PER TELEMETRY RATE OF 96. BRUISING TO RIGHT EYE R/T EYE SURGERY 2 WEEKS AGO PER PT. PT HAD EGD TODAY, VSS AFTER PROCEDURE. PT VOIDING PER URINAL. TOLERATING A FULL LIQUID DIET WELL. WILL CONTINUE TO MONITOR.
[2018-12-22 00:06] LABS: Hematocrit 27.7 % (37.0-53.0); Hemoglobin 8.9 g/dL (13.5-17.5)
--- NOTE | 2018-12-22 02:56 | NUR ---
PT RESTING WITH CPAP ON. SPO2 MONITR IN PLACE. EQUAL CHEST RISE NOTED.
--- NOTE | 2018-12-22 05:01 | NUR ---
END OF SHIFT SUMMARY PT ALEERT AND ORIENTED, TALKING WITH STAFF APPROPRIATELY. PT HAS BEEN USING CPAP FOR THE ENTIREITY OF THE SHIFT. SPO2 MONITOR IN PLACE. VSS. HAVE BEEN USING MAMNUAL BP CUFF THE CAPSULE HAS NOT BEEN READING BP CORRECTLY. PT HAS HAD CALL LIGHT BY BEDSIDE AND HAS USED APPROPRIATELY. PT HAS HAD LITTLE TOP NO COMPLAINTS THIS SHIFT. HGB NOTED TO INCREASE FROM 8.8 TO 8.9. PT HAS NOT HAD BM THIS SHIFT. NO NEW BRUISING NOTED. WILL CONTINUE TO MONITOR PT UNTIL SHIFT CHANGE.
[2018-12-22 09:21] LABS: BASOPHILS ABSOLUTE AUTO 0.05 K/mm3 (0.00-0.23); BASOPHILS PERCENT AUTO 1 % (0-2); EOSINOPHILS ABSOLUTE AUTO 0.35 K/mm3 (0.00-0.68); EOSINOPHILS PERCENT AUTO 4 % (0-6); Hematocrit 30.3 % (37.0-53.0); Hemoglobin 9.6 g/dL (13.5-17.5); IMMATURE GRAN ABSOLUTE AUTO 0.03 K/mm3 (0.00-0.10); IMMATURE GRAN PERCENT AUTO 0 % (0-1); LYMPHOCYTES ABSOLUTE AUTO 1.38 K/mm3 (0.84-5.20); LYMPHOCYTES PERCENT AUTO 16 % (21-46); MONOCYTES PERCENT AUTO 13 % (4-13); Mean Corpuscular HGB Conc 31.7 g/dL (31.5-36.5); Mean Corpuscular Volume 88 fL (80-100); NEUTROPHILS ABSOLUTE AUTO 5.74 K/mm3 (1.96-9.15); NEUTROPHILS PERCENT AUTO 66 % (41-73); Platelet Count 230 K/mm3 (150-400); RDW Coefficient Variation 19.5 % (11.7-14.2); RDW Standard Deviation 59.5 fL (35.1-46.3); Red Blood Cell Count 3.43 M/mm3 (4.30-5.90); White Blood Cell Count 8.65 K/mm3 (4.00-11.30)
--- NOTE | 2018-12-22 09:22 | NUR ---
PCU DAYSHIFT ASSUMED CARE OF PT APPROX. 0700. PT A&OX4. ASSESSMENT COMPLETED. VITAL SIGNS STABLE. PT ON CPAP AT START OF SHIFT AND WAS ABLE TO PUT ON 2L OXYGEN VIA N.C. WHEN NOT ON THIS. PT REPORTS BREATHING TO BE IMPROVED FROM PREVIOUS DAYS. STILL HAS A SMALL AMOUNT OF DYSPNEA WITH ACTIVITY BUT PT REPROTS HE IS ALMOST BACK TO HIS BASELINE. PT REPORTS FEELING GOOD OVERALL. PT ABLE TO EAT BREAKFAST THIS AM AND TOLERATED WELL. BED IN LOW POSITION CALL LIGHT IN REACH AND PT DENIES ANY NEEDS AT THIS TIME.
[2018-12-22 09:37] LABS: Albumin, Blood 3.2 g/dL (3.4-5.0); Anion Gap 8 mmol/L (6-16); Blood Urea Nitrogen 47 mg/dL (8-24); Bun/Creatinine Ratio 28.1 (12.0-20.0); CO2, Blood 30 mmol/L (21-32); Calcium, Blood 9.1 mg/dL (8.5-10.1); Chloride, Blood 97 mmol/L (98-108); Creatinine, Blood 1.67 mg/dL (0.60-1.20); Glomerular Filtration Rate 43 (60-); Glucose, Blood 215 mg/dL (70-99); Phosphorus, Blood 3.3 mg/dL (2.5-4.9); Potassium, Blood 3.8 mmol/L (3.5-5.5); Sodium, Blood 135 mmol/L (136-145)
[2018-12-22] MEDS ORDERED: ASPI325 PO (11:20)
[2018-12-22] MEDS ORDERED: TRAM50 PO (11:22)
[2018-12-22] MEDS ORDERED: ASCO500 PO (11:32)
[2018-12-22] MEDS ORDERED: ALBU90OI INH (11:32)
--- NOTE | 2018-12-22 12:14 | NUR ---
DISCHARGE. RECIEVED DISCHARGE ORDERS. DISCHARGE PROCESS COMPLETED. DISCHARGE ORDERS REVIEWED WITH PATIENT. ANSWERED QUESTIONS. PT AWAITING TO ARRIVE TO TAKE PT HOME VIA AUTOMOBILE. NO S/SX OF ACUTE DISTRESS. WILL CONTINUE TO MONITOR UNTIL PT DEPARTS UNIT.
== END 2018-12-22 12:38 | disposition home or self-care (01) | DRG 377 ==
LOC: ER 16:04 → PCU 18:44
PROVIDERS: Internal Medicine Endocrinology, Diabetes & Metabolism; Internal Medicine Gastroenterology; Physician Assistant; ADMIT Internal Medicine
PROC: 0W3P8ZZ Control Bleeding in Gastrointestinal Tract, Via Natural or Artificial Opening Endoscopic (ICD-10-PCS; principal; 2018-12-21 13:15)
PROC: 30233N1 Transfusion of Nonautologous Red Blood Cells into Peripheral Vein, Percutaneous Approach (ICD-10-PCS; 2018-12-21 13:15)
DX: K25.4 Chronic or unspecified gastric ulcer with hemorrhage (principal); I50.23 Acute on chronic systolic (congestive) heart failure; I48.92 Unspecified atrial flutter; D62 Acute posthemorrhagic anemia; I13.0 Hypertensive heart and chronic kidney disease with heart failure and stage 1 through stage 4 chronic kidney disease, or unspecified chronic kidney disease; Z99.81 Dependence on supplemental oxygen; I25.10 Atherosclerotic heart disease of native coronary artery without angina pectoris; N18.3 Chronic kidney disease, stage 3 (moderate); E78.5 Hyperlipidemia, unspecified; Z95.5 Presence of coronary angioplasty implant and graft; Z87.891 Personal history of nicotine dependence; E11.22 Type 2 diabetes mellitus with diabetic chronic kidney disease; D63.1 Anemia in chronic kidney disease; J30.2 Other seasonal allergic rhinitis; I48.0 Paroxysmal atrial fibrillation; E66.9 Obesity, unspecified; E11.65 Type 2 diabetes mellitus with hyperglycemia; I25.2 Old myocardial infarction; Z79.4 Long term (current) use of insulin
CPT/HCPCS: 36415; 36430; 71046; 74176; 80053; 80069; 82272; 82947; 83880; 84145; 84484; 85014; 85018; 85025; 86850; 86900; 86901; 86923; 88305; 88342; 93005; 93010; 94640; 94762; 96374; 99285-25; C9113; J1815; J1940; J2704; J7030; J7120; P9016

== ENCOUNTER 2019-12-23 19:30 | Emergency (ER) | payer OTHER, MEDICARE ==
[~2019-12-23] VITALS: Ht 170.2 cm; Wt 83.0 kg
[~2019-12-23 19:30] MED LIST changes: +ALBU90OI INH; +ALBU90OI61 INH; +ASCO500 PO; +ASPI325 PO; +NITR.4SL SL
== END 2019-12-23 21:04 | disposition home or self-care (01) ==
LOC: ER 19:30
DX: S61.210A Laceration without foreign body of right index finger without damage to nail, initial encounter (principal); Z88.5 Allergy status to narcotic agent; Z88.8 Allergy status to other drugs, medicaments and biological substances; Z79.899 Other long term (current) drug therapy; Z79.82 Long term (current) use of aspirin; Z79.4 Long term (current) use of insulin; I48.91 Unspecified atrial fibrillation; I25.810 Atherosclerosis of coronary artery bypass graft(s) without angina pectoris; J44.9 Chronic obstructive pulmonary disease, unspecified; E11.9 Type 2 diabetes mellitus without complications; E78.5 Hyperlipidemia, unspecified; Z87.891 Personal history of nicotine dependence; Z23 Encounter for immunization; W26.0XXA Contact with knife, initial encounter
CPT/HCPCS: 12001; 90471; 90714; 99282-25

== ENCOUNTER 2021-04-08 11:20 | Emergency (ER) | payer MEDICARE, OTHER ==
[~2021-04-08] VITALS: Ht 170.2 cm; Wt 80.7 kg
[2021-04-08] MEDS ORDERED: ATOR40TA PO (11:50)
[2021-04-08] MEDS ORDERED: GABA400 PO (11:51)
[2021-04-08] MEDS ORDERED: DULERA 100 MCG/13 GM INH (11:52)
[2021-04-08] MEDS ORDERED: INSULANPEN SC (11:53)
[2021-04-08] MEDS ORDERED: PRAM.125 PO (11:53)
[2021-04-08 12:07] LABS: BASOPHILS ABSOLUTE AUTO 0.07 K/mm3 (0.00-0.23); BASOPHILS PERCENT AUTO 1 % (0-2); EOSINOPHILS ABSOLUTE AUTO 0.49 K/mm3 (0.00-0.68); EOSINOPHILS PERCENT AUTO 7 % (0-6); Hematocrit 40.7 % (37.0-53.0); Hemoglobin 13.5 g/dL (13.5-17.5); IMMATURE GRAN ABSOLUTE AUTO 0.04 K/mm3 (0.00-0.10); IMMATURE GRAN PERCENT AUTO 1 % (0-1); LYMPHOCYTES ABSOLUTE AUTO 1.78 K/mm3 (0.84-5.20); LYMPHOCYTES PERCENT AUTO 24 % (21-46); MONOCYTES ABSOLUTE AUTO 0.71 K/mm3 (0.16-1.47); MONOCYTES PERCENT AUTO 10 % (4-13); Mean Corpuscular HGB 29.5 pg (26.0-34.0); Mean Corpuscular HGB Conc 33.2 g/dL (31.5-36.5); Mean Corpuscular Volume 89 fL (80-100); Mean Platelet Volume 10.8 fL (9.1-12.4); NEUTROPHILS ABSOLUTE AUTO 4.41 K/mm3 (1.96-9.15); NEUTROPHILS PERCENT AUTO 59 % (41-73); Platelet Count 219 K/mm3 (150-400); RDW Coefficient Variation 13.6 % (11.7-14.2); RDW Standard Deviation 44.2 fL (35.1-46.3); Red Blood Cell Count 4.57 M/mm3 (4.30-5.90)
[2021-04-08 12:25] LABS: Troponin I <0.015 ng/mL (0.000-0.040)
[2021-04-08 12:26] LABS: Alanine Aminotransfer (ALT/SGP 32 U/L (12-78); Albumin, Blood 3.3 g/dL (3.4-5.0); Albumin/Globulin Ratio 0.9 (0.8-1.8); Alk Phos 91 U/L (50-136); Anion Gap 4 mmol/L (6-16); Aspartate Aminotrans (AST/SGOT 26 U/L (12-37); Bilirubin, Total 0.5 mg/dL (0.1-1.0); Blood Urea Nitrogen 27 mg/dL (8-24); Bun/Creatinine Ratio 17.2 (12.0-20.0); CO2, Blood 27 mmol/L (21-32); Calcium, Blood 9.1 mg/dL (8.5-10.1); Chloride, Blood 109 mmol/L (98-108); Creatinine, Blood 1.57 mg/dL (0.60-1.20); Globulin, Blood 3.8 g/dL (2.2-4.0); Glomerular Filtration Rate 43 (60-); Glucose, Blood 228 mg/dL (70-99); Potassium, Blood 4.3 mmol/L (3.5-5.5); Sodium, Blood 140 mmol/L (136-145); Total Protein, Blood 7.1 g/dL (6.4-8.2)
[2021-04-08] MEDS ORDERED: PRED20 PO (14:00)
[2021-04-08] MEDS ORDERED: Zithromax250 MG PO (14:00)
[2021-04-08] MEDS ORDERED: CEFP200 PO (14:00)
== END 2021-04-08 13:58 | disposition home or self-care (01) ==
LOC: ER 11:20
PROVIDERS: Physician Assistant
DX: J44.1 Chronic obstructive pulmonary disease with (acute) exacerbation (principal); I50.9 Heart failure, unspecified; I11.0 Hypertensive heart disease with heart failure; I48.91 Unspecified atrial fibrillation; I25.10 Atherosclerotic heart disease of native coronary artery without angina pectoris; E78.5 Hyperlipidemia, unspecified; E11.9 Type 2 diabetes mellitus without complications; Z88.5 Allergy status to narcotic agent; Z88.8 Allergy status to other drugs, medicaments and biological substances; Z79.899 Other long term (current) drug therapy; Z79.84 Long term (current) use of oral hypoglycemic drugs; Z79.4 Long term (current) use of insulin; Z87.891 Personal history of nicotine dependence
CPT/HCPCS: 71045; 80053; 83880; 84484; 85025; 93005; 93010; 99285-25

== ENCOUNTER 2021-06-24 10:06 | Emergency (ER) | payer MEDICARE, OTHER ==
[~2021-06-24] VITALS: Ht 170.2 cm; Wt 78.0 kg
[~2021-06-24 10:06] MED LIST changes: +CEFP200 PO; +DULERA 100 MCG/13 GM INH; +GABA400 PO; +PRAM.125 PO; +PRED20 PO; +Zithromax250 MG PO
[2021-06-24 10:44] LABS: BASOPHILS ABSOLUTE AUTO 0.06 K/mm3 (0.00-0.23); BASOPHILS PERCENT AUTO 1 % (0-2); EOSINOPHILS ABSOLUTE AUTO 0.27 K/mm3 (0.00-0.68); EOSINOPHILS PERCENT AUTO 3 % (0-6); Hematocrit 41.9 % (37.0-53.0); Hemoglobin 14.1 g/dL (13.5-17.5); IMMATURE GRAN ABSOLUTE AUTO 0.05 K/mm3 (0.00-0.10); IMMATURE GRAN PERCENT AUTO 1 % (0-1); LYMPHOCYTES ABSOLUTE AUTO 1.49 K/mm3 (0.84-5.20); LYMPHOCYTES PERCENT AUTO 19 % (21-46); MONOCYTES ABSOLUTE AUTO 0.81 K/mm3 (0.16-1.47); MONOCYTES PERCENT AUTO 10 % (4-13); Mean Corpuscular HGB 30.1 pg (26.0-34.0); Mean Corpuscular HGB Conc 33.7 g/dL (31.5-36.5); Mean Corpuscular Volume 90 fL (80-100); Mean Platelet Volume 10.6 fL (9.1-12.4); NEUTROPHILS PERCENT AUTO 66 % (41-73); Platelet Count 274 K/mm3 (150-400); RDW Coefficient Variation 13.9 % (11.7-14.2); RDW Standard Deviation 45.6 fL (35.1-46.3); Red Blood Cell Count 4.68 M/mm3 (4.30-5.90); White Blood Cell Count 7.98 K/mm3 (4.00-11.30)
[2021-06-24 11:04] LABS: Albumin, Blood 3.4 g/dL (3.4-5.0); Albumin/Globulin Ratio 0.9 (0.8-1.8); Bilirubin, Total 0.5 mg/dL (0.1-1.0); Bun/Creatinine Ratio 22.5 (12.0-20.0); Calcium, Blood 9.2 mg/dL (8.5-10.1); Creatinine, Blood 2.13 mg/dL (0.60-1.20); Globulin, Blood 3.6 g/dL (2.2-4.0); Potassium, Blood 4.7 mmol/L (3.5-5.5); Troponin I 0.026 ng/mL (0.000-0.040)
[2021-06-24] MEDS ORDERED: Coreg12.5 MG PO (14:12)
[2021-06-24] MEDS ORDERED: XARELTO15 MG PO (14:12)
== END 2021-06-24 14:02 | disposition home or self-care (01) ==
LOC: ER 10:06
PROVIDERS: Physician Assistant
DX: I48.91 Unspecified atrial fibrillation (principal); I10 Essential (primary) hypertension; E78.00 Pure hypercholesterolemia, unspecified
CPT/HCPCS: 71045; 80053; 83880; 84484; 85025; 93005; 93010; 96374; 99284-25; A9270; J7030

== ENCOUNTER → 2021-10-01 | Outpatient (CLI) | payer MEDICARE, OTHER ==
[~2021-10-01] MED LIST changes: +Coreg12.5 MG PO
== END | disposition home or self-care (01) ==
LOC: LAB SHORT 12:12
DX: Z51.81 Encounter for therapeutic drug level monitoring (principal); Z79.899 Other long term (current) drug therapy
CPT/HCPCS: G0480

== ENCOUNTER 2021-11-30 03:24 | Inpatient (IN) | payer MEDICARE, OTHER ==
[~2021-11-30] VITALS: Ht 170.2 cm; Wt 80.4 kg
[2021-11-30 03:34] LABS: BASOPHILS ABSOLUTE AUTO 0.11 K/mm3 (0.00-0.23); BASOPHILS PERCENT AUTO 1 % (0-2); EOSINOPHILS ABSOLUTE AUTO 0.04 K/mm3 (0.00-0.68); EOSINOPHILS PERCENT AUTO 0 % (0-6); Hematocrit 46.3 % (37.0-53.0); Hemoglobin 15.2 g/dL (13.5-17.5); IMMATURE GRAN PERCENT AUTO 1 % (0-1); LYMPHOCYTES ABSOLUTE AUTO 2.66 K/mm3 (0.84-5.20); LYMPHOCYTES PERCENT AUTO 23 % (21-46); MONOCYTES ABSOLUTE AUTO 1.54 K/mm3 (0.16-1.47); MONOCYTES PERCENT AUTO 13 % (4-13); Mean Corpuscular HGB 30.2 pg (26.0-34.0); Mean Corpuscular HGB Conc 32.8 g/dL (31.5-36.5); Mean Corpuscular Volume 92 fL (80-100); Mean Platelet Volume 11.8 fL (9.1-12.4); NEUTROPHILS ABSOLUTE AUTO 7.03 K/mm3 (1.96-9.15); NEUTROPHILS PERCENT AUTO 61 % (41-73); Platelet Count 251 K/mm3 (150-400); RDW Coefficient Variation 14.4 % (11.7-14.2); RDW Standard Deviation 48.1 fL (35.1-46.3); Red Blood Cell Count 5.04 M/mm3 (4.30-5.90); White Blood Cell Count 11.48 K/mm3 (4.00-11.30)
[2021-11-30 04:23] LABS: Influenza A, PCR NEGATIVE (NEGATIVE); Influenza B, PCR NEGATIVE (NEGATIVE); Resp Syncytial Virus, PCR NEGATIVE (NEGATIVE)
[2021-11-30 04:28] LABS: Magnesium, Blood 1.8 mg/dL (1.6-2.4)
[2021-11-30 04:37] LABS: SARS-Cov-2 (COVID-19) PCR, MMC POSITIVE (NEGATIVE)
[2021-11-30 04:39] LABS: Albumin, Blood 3.6 g/dL (3.4-5.0); Bilirubin, Total 0.7 mg/dL (0.1-1.0); Calcium, Blood 9.4 mg/dL (8.5-10.1); Creatinine, Blood 2.25 mg/dL (0.60-1.20); Globulin, Blood 3.5 g/dL (2.2-4.0); Potassium, Blood 6.1 mmol/L (3.5-5.5); Total Protein, Blood 7.1 g/dL (6.4-8.2)
--- NOTE | 2021-11-30 06:58 | NUR ---
SHIFT SUMMERY PT ARRIVED FROM ER AT 0505. PT IS ALERT, ORIENTED ONLY TO SELF. CPAP 12/45% W/OXYGEN SAT >90% AT THIS TIME. PT IS TACHYPNIC W/RR 38-50. PT IS ST ON THE OIL DERRICK OPERATOR W/BP WNL. MEYER CATH WAS PLACED W/YELLOW URINE DRAINING. PT WAS TRYING TO REMOVE CPAP MASK MULTIPLE TIMES AND WAS NOT ABLE TO BE EDUCATED AND REDIRECTED. ORDER FOR SOFT WRIST RESTRAINTS. PT ALSO WAS PULLING AT THIS MEYER CATHETER AND IV TUBING. HE STATED THAT HE DOES NOT KNOW WHERE HE IS AT THIS TIME. HE IS AFEBRILE.
[2021-11-30 07:43] LABS: Anion Gap 15 mmol/L (6-16); Blood Urea Nitrogen 40 mg/dL (8-24); Bun/Creatinine Ratio 17.9 (12.0-20.0); CO2, Blood 16 mmol/L (21-32); Calcium, Blood 8.4 mg/dL (8.5-10.1); Chloride, Blood 102 mmol/L (98-108); Creatinine, Blood 2.24 mg/dL (0.60-1.20); Glomerular Filtration Rate 29 (60-); Glucose, Blood 536 mg/dL (70-99); Phosphorus, Blood 4.1 mg/dL (2.5-4.9); Potassium, Blood 5.4 mmol/L (3.5-5.5); Sodium, Blood 133 mmol/L (136-145)
[2021-11-30] MEDS ORDERED: FLUO10 PO (08:42)
[2021-11-30] MEDS ORDERED: CARV6.25 PO (08:48)
--- NOTE | 2021-11-30 09:30 | NUR ---
INITIAL ASSESSMENT PATIENT ALERT AND ORIENTED X 3, HOWEVER APPEARS FORGETFUL. PATIENT ANXIOUS AT TIMES. PATIENT WEAK BUT ABLE TO MOVE ALL EXTREMITIES. PATIENT AFEBRILE. PATIENT DENIES PAIN. PATIENT ON CPAP OF 11 AND 40% FIO2. LUNGS COARSE THROUGHOUT. OCCASIONAL DRY COUGH NOTED. PATIENT TACHYPNEIC. PATIENT IN ST, HR 120S TO 140S. SBP 70S TO 130S. SCDS PLACED. ABDOMEN MODERATELY DISTENDED, FIRM, WITH NORMOACTIVE BOWEL SOUNDS NOTED. MEYER IN PLACE DRAINING YELLOW COLORED URINE. SKIN APPEARS WNL. PRECEDEX STARTED AT 2 MCG/ MINUTE FOR HIGH RR AND ANXIETY FROM CPAP MASK. BED LOW, CALL LIGHT IN REACH. FAMILY AT BEDSIDE. WILL CONTINUE TO MONITOR PATIENT FREQUENTLY THROUGHOUT SHIFT.
--- NOTE | 2021-11-30 12:18 | NUR ---
PATIENT AFEBRILE. DENIES PAIN. PATIENT WOKE FROM NAP CONFUSED LATER THIS AM. PATIENT STATED "I NEED TO KNOW WHAT IS GOING ON HERE". PATIENT DID NOT REMEMBER BEING IN HOSPITAL WITH COVID. PATIENT REORIENTED EASILY. PATIENT ON HFNC 40 L AND 45% FIO2. PATIENT IN A. FIB. HR 80S TO 90S. SBP 90S TO LOW 100S. PATIENT GIVEN OT IV 20 MG LASIX. CHEMBG RESULT "HIGH". WAITING FOR LAB TO COME DRAW. NO OTHER ACUTE CHANGES TO NOTE ON AT THIS TIME. WILL CONTINUE TO MONITOR.
--- NOTE | 2021-11-30 13:00 | NUR ---
DR. RUTHERFORD INFORMED OF PATIENT CONVERTING TO A. FIB. INFORMED THAT PATIENT ON XARELTO. NO ORDERS RECEIVED.
[2021-11-30 13:04] LABS: Glucose, Blood 543 mg/dL (70-99)
--- NOTE | 2021-11-30 16:45 | NUR ---
PATIENT AFEBRILE. HR IN THE 1-TEENS. SBP 80S TO 90S. LEVOPHED AT 2 MCG/ MINUTE. PATIENT NAPPING ON AND OFF. NO OTHER ACUTE CHANGES TO NOTE ON AT THIS TIME.
--- NOTE | 2021-11-30 19:08 | NUR ---
SHIFT SUMMARY PATIENT NAPPED ON AND OFF THROUGHOUT SHIFT. PATIENT REMAINED ALERT AND ORIENTED WITH 1 PERIOD OF CONFUSION UPON WAKING FROM NAP AND OCCASIONAL FORGETFULNESS. PATIENT REMAINED AFEBRILE. NO COMPLAINTS OF PAIN. PATIENT HELPED TO REPOSITION T/O SHIFT. PATIENT DARRICK OT LASIX GIVEN. PATIENT CHANGED FROM CPAP 11 AND 40% TO HFNC 40 L AND 45% FIO2 IN LATER MORNING. PATIENT HAS BEEN TOLERATING HFNC WELL SINCE. PATIENT ST THIS AM AND CONVERTED TO A.FIB EARLY AFTERNOON. HR 80S TO 140S. SBP 70S TO 140S. PATIENT STARTED ON LOW DOSE LEVOPHED
--- NOTE | 2021-11-30 19:15 | NUR ---
SHIFT SUMMARY PATIENT NAPPED ON AND OFF THROUGHOUT SHIFT. PATIENT REMAINED ALERT AND ORIENTED WITH 1 PERIOD OF CONFUSION UPON WAKING FROM NAP AND OCCASIONAL FORGETFULNESS. PATIENT STARTED ON PRECEDEX THIS AM FOR ANXIETY. PATIENT REMAINED AFEBRILE. NO COMPLAINTS OF PAIN. PATIENT HELPED TO REPOSITION T/O SHIFT. PATIENT LUNG SOUNDS IMPROVED AFTER OT LASIX GIVEN. PATIENT CHANGED FROM CPAP 11 AND 40% TO HFNC 40 L AND 45% FIO2 IN LATER MORNING. PATIENT HAS BEEN TOLERATING HFNC WELL SINCE. PATIENT ST THIS AM AND CONVERTED TO A.FIB EARLY AFTERNOON. HR 80S TO 140S. SBP 70S TO 140S. PATIENT STARTED ON LOW DOSE LEVOPHED AT 2 MCG/ MINUTE TO KEEP MAPS 65 AND GREATER. SCDS REMAINED IN PLACE. NO BM THIS SHIFT. PATIENT TOLERATED CLEAR LIQUID/ ADA DIET WELL. 700 MLS OF YELLOW URINE OUT FROM MEYER. NO CHANGES TO SKIN NOTED. 1 G CALCIUM GIVEN THIS AM. EKG PERFORMED THIS AM. HOME MED LIST RECONCILED TODAY. BLOOD SUGARS 300S TO 500S. PATIENT CHANGED TO HIGH SLIDING SCALE Q4H AND LONG ACTING INSULIN INCREASED. AND 2 SONS IN TO VISIT MULTIPLE TIMES TODAY. PATIENT APPEARS COMFORTABLE AT THIS TIME. BED LOW, CALL LIGHT IN REACH. REPORT GIVEN TO ASSUMING AUTOMOTIVE LIGHT MECHANIC NURSE.
--- NOTE | 2021-11-30 20:01 | NUR ---
PATIENT SLEEPING, AWAKENS TO SLIGHT STIMULI. VERBALIZED THAT HE IS FEELING MUCH BETTER. SKIN IS COOL AND DIAPHORETIC, CBG 333. AIRVO 40L FIO2 45% BIOX 98% PATIENT HAS SHORT APNEA BREATHING WHILE SLEEPING MAINTAINING BIOX 98%. PRECEDEX TITRATED FROM 0.4 MCG TO 0.3 MCG. HYPOTENSION CONTINUES LEVOPHED 2 MCG CONTINUES.
--- NOTE | 2021-11-30 20:55 | NUR ---
PATIENT C/O FEELING SOB AFTER TAKING PO CLEAR LIQUIDS AND HS MEDICATIONS, LUNG SOUNDS CONTINUE TO BE CLEAR BIOX 93-95% PATIENT ASSISTED TO LAY HIGH ON RIGHT SIDE AND FAN ON IN ROOM, PATIENT VERBALIZED FEELING BETTER. LEVOPHED ON STANDBY PRECEDEX 0.2 MCG
[2021-12-01 03:42] LABS: BASOPHILS ABSOLUTE AUTO 0.02 K/mm3 (0.00-0.23); BASOPHILS PERCENT AUTO 0 % (0-2); EOSINOPHILS ABSOLUTE AUTO 0.01 K/mm3 (0.00-0.68); EOSINOPHILS PERCENT AUTO 0 % (0-6); Hematocrit 40.8 % (37.0-53.0); Hemoglobin 14.2 g/dL (13.5-17.5); IMMATURE GRAN ABSOLUTE AUTO 0.03 K/mm3 (0.00-0.10); IMMATURE GRAN PERCENT AUTO 0 % (0-1); LYMPHOCYTES ABSOLUTE AUTO 0.76 K/mm3 (0.84-5.20); LYMPHOCYTES PERCENT AUTO 10 % (21-46); MONOCYTES ABSOLUTE AUTO 0.78 K/mm3 (0.16-1.47); MONOCYTES PERCENT AUTO 10 % (4-13); Mean Corpuscular HGB 30.3 pg (26.0-34.0); Mean Corpuscular HGB Conc 34.8 g/dL (31.5-36.5); Mean Platelet Volume 11.2 fL (9.1-12.4); NEUTROPHILS ABSOLUTE AUTO 6.01 K/mm3 (1.96-9.15); NEUTROPHILS PERCENT AUTO 79 % (41-73); Platelet Count 152 K/mm3 (150-400); RDW Standard Deviation 44.4 fL (35.1-46.3); Red Blood Cell Count 4.68 M/mm3 (4.30-5.90); White Blood Cell Count 7.61 K/mm3 (4.00-11.30)
[2021-12-01 03:43] LABS: Mean Corpuscular Volume 87 fL (80-100)
[2021-12-01 03:56] LABS: Albumin, Blood 2.9 g/dL (3.4-5.0); Anion Gap 11 mmol/L (6-16); Blood Urea Nitrogen 57 mg/dL (8-24); Bun/Creatinine Ratio 22.3 (12.0-20.0); CO2, Blood 23 mmol/L (21-32); Calcium, Blood 9.2 mg/dL (8.5-10.1); Chloride, Blood 105 mmol/L (98-108); Creatinine, Blood 2.56 mg/dL (0.60-1.20); Glomerular Filtration Rate 25 (60-); Glucose, Blood 301 mg/dL (70-99); Magnesium, Blood 2.1 mg/dL (1.6-2.4); Phosphorus, Blood 4.1 mg/dL (2.5-4.9); Potassium, Blood 4.1 mmol/L (3.5-5.5); Sodium, Blood 139 mmol/L (136-145)
--- NOTE | 2021-12-01 06:06 | NUR ---
SUMMARY PATIENT SLEEPING MOST OF THE NIGHT WITH CPAP 11 FIO2 40% IN PLACE. RESP CONTINUE HIGH 20'S TO 30'S WITH OCCASIONAL SLEEP APNEA. MAINTAINING BIOX GREATER THAN 90'S. PATIENT RUPERT CLEAR LIQUID AND PO MEDICATIONS WITHOUT DIFFICULTY. PRECEDEX OFF. AFIB CONTINUES BP WITH NARROW PULSE PRESSURE MAP >60 LEVOPHED REMAINS OFF.
--- NOTE | 2021-12-01 08:00 | NUR ---
DR. RUTHERFORD HERE AT 0742 TO SEE PATIENT. UPDATED ON PATIENT STATUS. INFORMED THAT KIDNEY LABS WORSENING. INFORMED THAT URINE OUTPUT 350 MLS FOR THE NIGHT. INFORMED THAT LAST BLOOD SUGAR 301. INFORMED THAT HR HAS BEEN 130S TO 140S. ORDERS RECEIVED.
--- NOTE | 2021-12-01 08:32 | NUR ---
INITIAL ASSESSMENT PATIENT ALERT AND ORIENTED X 4 THIS AM. NO CONFUSION OR FORGETFULNESS NOTED. PATIENT WEAK BUT ABLE TO MOVE ALL EXTREMITIES AND ASSIST WITH REPOSITIONING. PATIENT AFEBRILE. PATIENT DENIES PAIN. LUNGS COARSE THROUGHOUT. PATIENT CHANGED FROM CPAP OF 11 AND 40% FIO2 OVER TO AIRVO 40 L AND 40% FIO2. PATIENT HAS OCCASIONAL DRY COUGH. PATIENT SOB WITH EXERTION. PATIENT IN A. FIB, HR 140S TO 150S. SBP 80S TO 1-TEENS. LEVOPHED TURNED OFF ON SHIFT PRODUCTION SUPERVISOR. SCHEDULED COREG GIVEN THIS AM FOR TACHYCARDIA PER DR. RUTHERFORD. SCDS IN PLACE. ABDOMEN MODERATELY DISTENDED, FIRM, WITH NORMOACTIVE BOWEL SOUNDS NOTED. PATIENT HAD BM THIS AM. PATIENT INCREASED FROM CLEAR LIQUID DIET TO ADA DIET. MEYER IN PLACE DRAINING YELLOW COLORED URINE. SKIN APPEARS WNL. NS TKO. BLOOD SUGAR 249 THIS AM; COVERAGE ADMINISTERED. PATIENT IN GOOD SPIRITS. BED LOW, CALL LIGHT IN REACH. WILL CONTINUE TO MONITOR PATIENT FREQUENTLY THROUGHOUT SHIFT.
--- NOTE | 2021-12-01 09:00 | NUR ---
2 SONS HERE TO VISIT PATIENT.
--- NOTE | 2021-12-01 11:43 | NUR ---
DR. RUTHERFORD CALLED AND INFORMED THAT HR 130S TO 140S. INFORMED THAT BP SOFT. STATED HE WOULD BE HERE SOON TO SORT IT OUT.
--- NOTE | 2021-12-01 13:06 | NUR ---
PATIENT AFEBRILE. PATIENT REMAINED ALERT AND ORIENTED X 4. PATIENT REMAINS ON AIRVO AT 40 L AND 40% FIO2. HR 130S TO 150S. SBP 80S TO 90S. PO CARDIZEM GIVEN. BLOOD SUGAR OF 223; COVERAGE GIVEN. NO OTHER ACUTE CHANGES NOTED AT THIS TIME. NO COMPLAINTS. WILL CONTINUE TO MONITOR.
--- NOTE | 2021-12-01 15:24 | NUR ---
Echocardiogram performed by Neal Contreras RDCS under my supervision.
--- NOTE | 2021-12-01 16:13 | NUR ---
PATIENT AFEBRILE. HR 130S TO 140S. SBP 80S TO LOW 100S. PO CARDIZEM GIVEN. IF HR OVER 13O AFTER 30 MINUTES THEN CARDIZEM DRIP WILL BE STARTED PER DR. RUTHERFORD. BLOOD SUGAR OF 138; NO COVERAGE INDICATED. NO OTHER ACUTE CHANGES TO NOTE ON AT THIS TIME. WILL CONTINUE TO MONITOR.
--- NOTE | 2021-12-01 18:44 | NUR ---
SHIFT SUMMARY PATIENT REMAINED ALERT AND ORIENTED X 4, AFEBRILE. PATIENT HAD NO COMPLAINTS OF PAIN. PATIENT HELPED NURSE WITH REPOSITIONING. LUNGS REMAINED COARSE THROUGHOUT. PATIENT REMAINED ON AIRVO AT 40 L AND 40% FIO2. PATIENT REMAINED IN A. FIB, HR LOW 100S TO 160S. SBP 70S TO 1-TEENS. SCHEDULED COREG GIVEN THIS AM. CARDIZEM PO GIVEN THIS AM AND AFTERNOON. 500 MLS NS BOLUS GIVEN. CARDIZEM STARTED AND IS CURRENTLY INFUSING AT 15 MG/ HOUR. BEFORE CARDIZEM DRIP, OTHER MEDICATIONS HELPED BRIEFLY WITH RAPID RATE. PATIENT NOW HAS HR IN 1-TEENS. PATIENT HAD 2 BMS THIS SHIFT; LAST BM LIQUID IN CONSISTENCY. PATIENT INCREASED TO ADA DIET THIS AM AND HAS BEEN TOLERATING WELL. 425 MLS OF YELLOW URINE OUT FROM MEYER THIS SHIFT. NO CHANGES IN SKIN NOTED. PATIENT REPOSITIONED T/O SHIFT. NS REMAINS TKO. ECHO PERFORMED THIS SHIFT. BLOOD SUGARS 249, 223, AND 138. SS INSULIN CHANGED FROM Q4H TO ACHS. PATIENT APPEARS COMFORTABLE AT THIS TIME. BED LOW, CALL LIGHT IN REACH. REPORT WILL BE GIVEN TO ONCOMING LUNCHEONETTE MANAGER NURSE SHORTLY.
--- NOTE | 2021-12-01 19:47 | NUR ---
PATIENT AWAKE USING TABLET FROM HOME. A&O X3, CONTINUES TO BE SOB WITH SLIGHT ACTIVITY. MOIST COUGH WITH SMALL AMT OF THICK SECRETIONS WHICH PATIENT SWALLOWING. AIRVO 40L FIO2 40% IN PLACE. CARDIZEM DRIP 15MG/HR TO HELP KEEP HEART RATE LESS THAN 120. PATIENT VERBALIZED THAT HE PLANS TO PUT CPAP 11 ON AFTER HS MEDICATIONS TONIGHT.
[2021-12-02 03:12] LABS: BASOPHILS ABSOLUTE AUTO 0.01 K/mm3 (0.00-0.23); BASOPHILS PERCENT AUTO 0 % (0-2); EOSINOPHILS PERCENT AUTO 0 % (0-6); Hematocrit 36.6 % (37.0-53.0); Hemoglobin 12.6 g/dL (13.5-17.5); IMMATURE GRAN ABSOLUTE AUTO 0.03 K/mm3 (0.00-0.10); IMMATURE GRAN PERCENT AUTO 0 % (0-1); LYMPHOCYTES ABSOLUTE AUTO 0.76 K/mm3 (0.84-5.20); LYMPHOCYTES PERCENT AUTO 9 % (21-46); MONOCYTES ABSOLUTE AUTO 0.93 K/mm3 (0.16-1.47); MONOCYTES PERCENT AUTO 12 % (4-13); Mean Corpuscular HGB 30.3 pg (26.0-34.0); Mean Corpuscular HGB Conc 34.4 g/dL (31.5-36.5); Mean Corpuscular Volume 88 fL (80-100); Mean Platelet Volume 11.3 fL (9.1-12.4); NEUTROPHILS ABSOLUTE AUTO 6.39 K/mm3 (1.96-9.15); NEUTROPHILS PERCENT AUTO 79 % (41-73); Platelet Count 144 K/mm3 (150-400); RDW Standard Deviation 44.9 fL (35.1-46.3); Red Blood Cell Count 4.16 M/mm3 (4.30-5.90); White Blood Cell Count 8.12 K/mm3 (4.00-11.30)
[2021-12-02 03:35] LABS: Albumin, Blood 2.6 g/dL (3.4-5.0); Anion Gap 11 mmol/L (6-16); Blood Urea Nitrogen 65 mg/dL (8-24); Bun/Creatinine Ratio 28.5 (12.0-20.0); CO2, Blood 22 mmol/L (21-32); Calcium, Blood 8.8 mg/dL (8.5-10.1); Chloride, Blood 107 mmol/L (98-108); Creatinine, Blood 2.28 mg/dL (0.60-1.20); Glomerular Filtration Rate 28 (60-); Glucose, Blood 178 mg/dL (70-99); Magnesium, Blood 1.8 mg/dL (1.6-2.4); Phosphorus, Blood 4.9 mg/dL (2.5-4.9); Potassium, Blood 3.9 mmol/L (3.5-5.5); Sodium, Blood 140 mmol/L (136-145)
--- NOTE | 2021-12-02 06:57 | NUR ---
SUMMARY PATIENT SLEEPING MOST OF THE NIGHT WITH CPAP 11 FIO2 40% IN PLACE. NOW AWAKE WITH AIRVO 40L FIO2 40% CONTINUES TO FEEL SOB WITH ACTIVITY, APPEARS TO BE RECOVERING FASTER THIS MORNING COMPARED TO YESTERDAY. CARDIZEM DRIP TITRATED OFF DURING THE NIGHT. AFIB CONTINUES WITH HEART RATE 110'S TO 120'S. DR RUTHERFORD IN TO SEE PATIENT.
--- NOTE | 2021-12-02 08:30 | NUR ---
INITIAL ASSESSMENT PATIENT ALERT AND ORIENTED X 4, AFEBRILE. DENIES PAIN. PATIENT CALM, COOPERATIVE AND SPRY THIS AM. PATIENT WEAK BUT ABLE TO AMBULATE TO CHAIR OR COMMODE WITH 1 PERSON ASSIST AND WALKER. LUNGS COARSE THROUGHOUT WITH RHONCHI NOTED IN R LOWER LUNG. PATIENT ON AIRVO AT 40 L AND 40% FIO2. PATIENT REPORTS DRY COUGH. SLIGHT SOB WITH EXERTION BUT PATIENT IS TOLERATING MUCH BETTER THAN WAS. PATIENT IN A. FIB, HR LOW 100S TO 130S. SBP LOW 100S TO 130S. SCDS IN PLACE. ABDOMEN MODERATELY DISTENDED, FIRM, NORMOACTIVE BOWEL SOUNDS NOTED. MEYER DRAINING YELLOW COLORED URINE. SKIN APPEARS WNL. NS TKO. PATIENT IN CHAIR AFTER WORKING WITH PT. CALL LIGHT IN REACH. WILL CONTINUE TO MONITOR.
--- NOTE | 2021-12-02 12:07 | NUR ---
PATIENT AFEBRILE. DENIES PAIN. BACK TO BED TO EAT LUNCH. STATES THE CHAIR IS UNCOMFORTABLE FOR LONG PERIODS OF TIME. PATIENT DECREASED TO 3 L OXYMIZER AND CONTINUES TO SAT IN HIGH 90S. HR 1-TEENS TO 130S. SBP IN THE LOW 100S. BLOOD SUGAR OF 253; COVERAGE GIVEN. NO OTHER ACUTE CHANGES TO NOTE ON AT THIS TIME. WILL CONTINUE TO MONITOR.
--- NOTE | 2021-12-02 16:00 | NUR ---
PATIENT AFEBRILE. DENIES PAIN. HR IN THE LOW 100S. SBP IN THE 90S. NO OTHER ACUTE CHANGES TO NOTE ON AT THIS TIME.
--- NOTE | 2021-12-02 19:15 | NUR ---
SHIFT SUMMARY PATIENT REMAINED PLEASANT, CALM AND COOPERATIVE. PATIENT REMAINED ALERT AND ORIENTED X 4. AFEBRILE. NO COMPLAINTS OF PAIN. PATIENT WORKED WITH PHYSICAL THERAPY THIS AM. PATIENT 1 PERSON ASSIST TO CHAIR AND BSC. LUNGS COARSE THROUGHOUT. PATIENT CHANGED FROM AIRVO 40 L AND 40% FIO2 TO 3 L OXYMIZER AND SATS HAVE REMAINED IN 90S. SOB WITH EXERTION MUCH IMPROVED. PATIENT REMAINED IN A. FIB, HR LOW 100S TO 130S. RATE BETTER CONTROLLED TODAY. SBP 90S TO 130S. 3 LOOSE BMS THIS SHIFT. PATIENT HAS GOOD APPETITE. MEYER DRAINED 600 MLS OF YELLOW COLORED URINE. NO CHANGES TO SKIN NOTED. IVS SALINE LOCKED. COMPLETE BEDBATH PERFORMED THIS SHIFT. MUCINEX STARTED THIS SHIFT TO HELP PATIENT COUGH PHLEGM UP. BLOOD SUGARS 100S TO 200S. BED LOW, CALL LIGHT IN REACH. NO COMPLAINTS AT THIS TIME. REPORT [facility].
[2021-12-03 03:30] LABS: BASOPHILS PERCENT AUTO 0 % (0-2); EOSINOPHILS PERCENT AUTO 0 % (0-6); Hematocrit 36.3 % (37.0-53.0); Hemoglobin 12.6 g/dL (13.5-17.5); IMMATURE GRAN ABSOLUTE AUTO 0.04 K/mm3 (0.00-0.10); IMMATURE GRAN PERCENT AUTO 1 % (0-1); LYMPHOCYTES PERCENT AUTO 9 % (21-46); MONOCYTES ABSOLUTE AUTO 0.75 K/mm3 (0.16-1.47); MONOCYTES PERCENT AUTO 13 % (4-13); Mean Corpuscular HGB 30.3 pg (26.0-34.0); Mean Corpuscular HGB Conc 34.7 g/dL (31.5-36.5); Mean Corpuscular Volume 87 fL (80-100); Mean Platelet Volume 11.5 fL (9.1-12.4); NEUTROPHILS PERCENT AUTO 78 % (41-73); Platelet Count 141 K/mm3 (150-400); RDW Coefficient Variation 13.9 % (11.7-14.2); RDW Standard Deviation 43.9 fL (35.1-46.3); Red Blood Cell Count 4.16 M/mm3 (4.30-5.90); White Blood Cell Count 5.79 K/mm3 (4.00-11.30)
[2021-12-03 03:51] LABS: Albumin, Blood 2.7 g/dL (3.4-5.0); Anion Gap 9 mmol/L (6-16); Blood Urea Nitrogen 67 mg/dL (8-24); Bun/Creatinine Ratio 37.2 (12.0-20.0); CO2, Blood 22 mmol/L (21-32); Chloride, Blood 108 mmol/L (98-108); Glomerular Filtration Rate 38 (60-); Glucose, Blood 167 mg/dL (70-99); Phosphorus, Blood 3.8 mg/dL (2.5-4.9); Potassium, Blood 4.3 mmol/L (3.5-5.5); Sodium, Blood 139 mmol/L (136-145)
--- NOTE | 2021-12-03 04:40 | NUR ---
SHIFT SUMMARY PATIENT SLEPT THROUGH MOST OF SHIFT. USED CPAP AT NIGHT WHILE SLEEPING AND 3LPM VIA OXYMIZER WHEN AWAKE WITH SPO2 MID TO HIGH 90'S. BP REMAINED STABLE WITH MAPS GREATER THAN 65. PATIENT WAS INDEPENDENT WITH REPOSITIONING AND WAS UP TO BSC WITH 1 PERSON SBA FOR BM. PATIENT WAS ABLE TO MAKE NEEDS KNOWN AND REMAINED ORIENTED. NO ACUTE EVENTS DURING SHIFT.
--- NOTE | 2021-12-03 08:42 | NUR ---
CARE ASSUMED OF PT AT 0700. PT WIDE AWAKE, OX3. PT STATES HE DOES NOT FEEL GOOD TODAY, UNABLE TO ELABORATE. PT SBA TO TOILET FOR BM, PT RUPERT TRANSFER WELL, ABLE TO SPEAK IN FULL SENTENCES WITH OUT ANY LABORED BREATHING, SATS 100% ON 3L OXYMIZER. PT ASSITED UP TO CHAIR. PT HAS FREQUENT DRY/HACKING NON PRODUCTIVE COUGH. PT AFIB W RATE 110-130'S; AM MEDS GIVEN. DR RUTHERFORD AT BEDSIDE THIS AM; SEE NEW ORDERS. PT NOW MED W TELE. PT'S 2 SON'S IN TO VISIT THIS AM; UPDATE GIVEN.
--- NOTE | 2021-12-03 19:15 | NUR ---
PT TRANSFERRED FROM ICU 12 TO ROOM 304 AROUND 1800 IN WHEELCHAIR. AMBULATED SBA TO BED SLOW WITH GOOD STRENGTH. ORIENTED TO ROOM SET UP AND CALL LIGHT. SENT FOR TELE, GIVEN ICE WATER. ASSISTED UP TO BSC HAD LOOSE BM. OXYMIZER 3L, SATS 97%, MIN SOB WITH EXERTION.
[2021-12-04 05:18] LABS: BASOPHILS ABSOLUTE AUTO 0.01 K/mm3 (0.00-0.23); BASOPHILS PERCENT AUTO 0 % (0-2); EOSINOPHILS PERCENT AUTO 0 % (0-6); Hemoglobin 12.1 g/dL (13.5-17.5); IMMATURE GRAN ABSOLUTE AUTO 0.04 K/mm3 (0.00-0.10); IMMATURE GRAN PERCENT AUTO 1 % (0-1); LYMPHOCYTES ABSOLUTE AUTO 0.53 K/mm3 (0.84-5.20); LYMPHOCYTES PERCENT AUTO 8 % (21-46); MONOCYTES ABSOLUTE AUTO 0.87 K/mm3 (0.16-1.47); MONOCYTES PERCENT AUTO 13 % (4-13); Mean Corpuscular HGB Conc 34.6 g/dL (31.5-36.5); Mean Corpuscular Volume 87 fL (80-100); Mean Platelet Volume 11.6 fL (9.1-12.4); NEUTROPHILS PERCENT AUTO 78 % (41-73); Platelet Count 162 K/mm3 (150-400); RDW Coefficient Variation 13.8 % (11.7-14.2); RDW Standard Deviation 43.8 fL (35.1-46.3); Red Blood Cell Count 4.04 M/mm3 (4.30-5.90); White Blood Cell Count 6.55 K/mm3 (4.00-11.30)
[2021-12-04 06:12] LABS: Albumin, Blood 2.7 g/dL (3.4-5.0); Anion Gap 11 mmol/L (6-16); Blood Urea Nitrogen 71 mg/dL (8-24); CO2, Blood 23 mmol/L (21-32); Calcium, Blood 8.9 mg/dL (8.5-10.1); Chloride, Blood 106 mmol/L (98-108); Creatinine, Blood 1.69 mg/dL (0.60-1.20); Glomerular Filtration Rate 41 (60-); Glucose, Blood 165 mg/dL (70-99); Phosphorus, Blood 3.6 mg/dL (2.5-4.9); Sodium, Blood 140 mmol/L (136-145)
--- NOTE | 2021-12-04 06:41 | NUR ---
HOGSHEAD INSPECTOR SUMMARY ADMITTED FOR ACUTE RESPIRATORY FAILURE. THE PT IS FULL CODE. HE IS COVID POSITIVE. THE PATIENT HAS DIMINISHED LUNG SOUNDS IN THE BASES AND AN INTERMITTENT HACKING COUGH BUT OTHERWISE DENIES SOB. HE HAS BEEN SATTING HIGH 90S ON CPAP THROUGHOUT THE NIGHT AND IS AT 99% ON 3L BY OXIMIZER. THE PATIENT HAD NO PAIN COMPLAINTS. HE IS ALERT AND ORIENTED X4. PLEASANT AND COOPERATIVE.
--- NOTE | 2021-12-04 18:36 | NUR ---
DAYSHIFT SUMMARY Patient doing well today, Diltiazem given TID, held evenig dose d/t soft BP, aware and instructed RN to give Coreg & hold Dilt at 1700. Heart rate controlled this afternoon, sustaining 100s, this morning patient was sustianing 120s-130s. Patient denied cardiac s/sx. Patient on 3L oxygen, titrated to RA, patient sats stable 98% RA. Worked with therapy today, patient is now independent in room. CBGs WNL, SSI given. Vitals stable.
[2021-12-05 05:00] LABS: BASOPHILS ABSOLUTE AUTO 0.01 K/mm3 (0.00-0.23); BASOPHILS PERCENT AUTO 0 % (0-2); EOSINOPHILS ABSOLUTE AUTO 0.02 K/mm3 (0.00-0.68); EOSINOPHILS PERCENT AUTO 0 % (0-6); Hemoglobin 11.7 g/dL (13.5-17.5); IMMATURE GRAN ABSOLUTE AUTO 0.07 K/mm3 (0.00-0.10); IMMATURE GRAN PERCENT AUTO 1 % (0-1); LYMPHOCYTES ABSOLUTE AUTO 1.19 K/mm3 (0.84-5.20); LYMPHOCYTES PERCENT AUTO 14 % (21-46); MONOCYTES ABSOLUTE AUTO 1.39 K/mm3 (0.16-1.47); MONOCYTES PERCENT AUTO 16 % (4-13); Mean Corpuscular HGB 29.9 pg (26.0-34.0); Mean Corpuscular HGB Conc 34.4 g/dL (31.5-36.5); Mean Corpuscular Volume 87 fL (80-100); Mean Platelet Volume 11.6 fL (9.1-12.4); NEUTROPHILS ABSOLUTE AUTO 5.94 K/mm3 (1.96-9.15); NEUTROPHILS PERCENT AUTO 69 % (41-73); Platelet Count 201 K/mm3 (150-400); RDW Coefficient Variation 13.8 % (11.7-14.2); RDW Standard Deviation 43.1 fL (35.1-46.3); Red Blood Cell Count 3.91 M/mm3 (4.30-5.90); White Blood Cell Count 8.62 K/mm3 (4.00-11.30)
[2021-12-05 05:24] LABS: Albumin, Blood 2.8 g/dL (3.4-5.0); Anion Gap 10 mmol/L (6-16); Blood Urea Nitrogen 73 mg/dL (8-24); Bun/Creatinine Ratio 40.3 (12.0-20.0); CO2, Blood 23 mmol/L (21-32); Calcium, Blood 8.9 mg/dL (8.5-10.1); Chloride, Blood 106 mmol/L (98-108); Creatinine, Blood 1.81 mg/dL (0.60-1.20); Glomerular Filtration Rate 37 (60-); Glucose, Blood 64 mg/dL (70-99); Magnesium, Blood 1.9 mg/dL (1.6-2.4); Phosphorus, Blood 3.5 mg/dL (2.5-4.9); Potassium, Blood 3.6 mmol/L (3.5-5.5); Sodium, Blood 139 mmol/L (136-145)
--- NOTE | 2021-12-05 07:31 | NUR ---
SHIFT SUMMARY: BLOOD GLUCOSE WAS 82 AT HS, BP WAS 94/54 WITH HR OF 103-119. DR CHILD WAS NOTIFIED AND ORDER TO GIVE ONLY 20 UNITS OF GLARGINE, SPOT CHECK DURING THE NIGHT AND OK TO GIVE CARDIZEM WITH BP 94/54. RECHECK ON BLOOD GLUCOSE WAS 51. PATIENT REMAINS A&OX3 AND ASYMPTOMATIC. APPLEJUICE WAS GIVEN. DAY SHIFT NURSE WAS UPDATED IN REPORT THAT BLOOD GLUCOSE NEEDS A RECHECK IN 15 MIN. NO RESP. DISTRESS THIS SHIFT. PATIENT WAS UNSTEADY WHEN UP TO THE BATHROOM.
[2021-12-05] MEDS ORDERED: ASPI81CH PO (11:59)
[2021-12-05] MEDS ORDERED: CARV25 PO (12:00)
[2021-12-05] MEDS ORDERED: BUME1 PO (12:00)
[2021-12-05] MEDS ORDERED: HUMALOG KW100 UNIT/1 SC (12:01)
[2021-12-05] MEDS ORDERED: BENZ100A PO (12:05)
[2021-12-05] MEDS ORDERED: DILT30 PO (12:05)
--- NOTE | 2021-12-05 16:37 | NUR ---
PATIENT DISCHARGED HOME No acute changes to patient status during the night. Saturations stable on RA, heart rate sustaining 100s-110s. Patient continues to have dry hacking cough, no sputum noted. Patient discharged with homehealth. Discharge teaching reviewed with patient, verbalized understanding. Removed IVs, IV sites WNL. Left medical unit 1430.
[2022-03-01] MEDS ORDERED: IPRAT-ALBUT 0.5-3 ML INH (12:20)
[2022-03-01] MEDS ORDERED: TRAM50 PO (12:20)
[2022-03-01] MEDS ORDERED: CALCIUM 600 MG1 EA19 PO (12:21)
[2022-03-01] MEDS ORDERED: ATOR40TA PO (12:22)
[2022-03-01] MEDS ORDERED: KRILL OIL 5001 EACH PO (12:22)
[2022-03-01] MEDS ORDERED: PRAM.125 PO (12:22)
[2022-03-01] MEDS ORDERED: FLUO10 PO (12:23)
[2022-03-01] MEDS ORDERED: SPIR25 PO (12:23)
[2022-03-01] MEDS ORDERED: GABA600 PO (12:25)
[2022-03-01] MEDS ORDERED: Isosorbide Mono30 MG PO (12:25)
[2022-03-01] MEDS ORDERED: CARV6.25 PO (12:26)
[2022-03-01] MEDS ORDERED: LOSA25 PO (12:26)
[2022-03-01] MEDS ORDERED: CALC.25 PO (12:27)
[2022-03-01] MEDS ORDERED: LORA10ER PO (12:27)
[2022-03-01] MEDS ORDERED: PANT40 PO (12:28)
[2022-03-01] MEDS ORDERED: MONT10T PO (12:28)
[2022-03-01] MEDS ORDERED: TOCO1000 PO (12:28)
[2022-03-01] MEDS ORDERED: POTA10T PO (12:29)
[2022-03-01] MEDS ORDERED: XARELTO15 MG PO (12:30)
[2022-03-01] MEDS ORDERED: FURO40 PO (12:30)
[2022-03-01] MEDS ORDERED: NOVOLOG FL100 UNIT/3 (12:31)
[2022-03-01] MEDS ORDERED: BASAGLAR K100 UNIT/3 SC (12:33)
[2022-03-01] MEDS ORDERED: HUMALOG KW100 UNIT/1 SC (12:34)
[2022-03-03] MEDS ORDERED: ASMANEX INH (00:50)
[2022-03-03] MEDS ORDERED: GLUCOSE4 GM PO (00:51)
[2022-03-03] MEDS ORDERED: BUME1 PO (00:52)
[2022-03-03] MEDS ORDERED: STIOLTO RESPIMAT4 G1 INH (00:53)
[2022-03-03] MEDS ORDERED: NITROGLYCERIN0.4 M3 SL (00:56)
[2022-03-03] MEDS ORDERED: METFORMIN HCL500 M2 PO (00:56)
[2022-03-03] MEDS ORDERED: DILT30 PO (00:58)
[2022-03-03] MEDS ORDERED: CARVEDILOL PO (00:59)
[2022-03-03] MEDS ORDERED: BENZONATATE100 MG PO (01:00)
[2022-03-03] MEDS ORDERED: AMOX-CLAV 875-1 EAC5 PO (01:02)
[2022-03-03] MEDS ORDERED: GABA100 PO (11:44)
[2022-03-03] MEDS ORDERED: PANT20 PO (11:49)
[2022-03-03] MEDS ORDERED: METO25ER PO (11:52)
[2022-03-03] MEDS ORDERED: ELIQUIS2.5 MG PO (11:53)
== END 2021-12-05 14:08 | disposition home health service (06) | DRG 871 ==
LOC: ER 03:24 → ICUW 04:20 → MEDS 12-03 17:52
PROVIDERS: Family Medicine; Student in an Organized Health Care Education/Training Program; ADMIT Internal Medicine
PROC: XW033E5 Introduction of Remdesivir Anti-infective into Peripheral Vein, Percutaneous Approach, New Technology Group 5 (ICD-10-PCS; principal; 2021-11-30)
PROC: 3E033XZ Introduction of Vasopressor into Peripheral Vein, Percutaneous Approach (ICD-10-PCS; 2021-11-30)
PROC: 3E0333Z Introduction of Anti-inflammatory into Peripheral Vein, Percutaneous Approach (ICD-10-PCS; 2021-11-30)
PROC: 3E03329 Introduction of Other Anti-infective into Peripheral Vein, Percutaneous Approach (ICD-10-PCS; 2021-11-30)
PROC: 8E0ZXY6 Isolation (ICD-10-PCS; 2021-11-30)
PROC: 5A0945A Assistance with Respiratory Ventilation, 24-96 Consecutive Hours, High Flow/Velocity Cannula (ICD-10-PCS; 2021-11-30)
PROC: 5A09457 Assistance with Respiratory Ventilation, 24-96 Consecutive Hours, Continuous Positive Airway Pressure (ICD-10-PCS; 2021-12-01)
DX: A41.89 Other specified sepsis (principal); I50.23 Acute on chronic systolic (congestive) heart failure; U07.1 COVID-19; J12.82 Pneumonia due to coronavirus disease 2019; J96.01 Acute respiratory failure with hypoxia; R65.21 Severe sepsis with septic shock; N17.9 Acute kidney failure, unspecified; J44.0 Chronic obstructive pulmonary disease with (acute) lower respiratory infection; I13.0 Hypertensive heart and chronic kidney disease with heart failure and stage 1 through stage 4 chronic kidney disease, or unspecified chronic kidney disease; I47.1 Supraventricular tachycardia; E11.22 Type 2 diabetes mellitus with diabetic chronic kidney disease; I25.10 Atherosclerotic heart disease of native coronary artery without angina pectoris; N18.30 Chronic kidney disease, stage 3 unspecified; E87.5 Hyperkalemia; I48.0 Paroxysmal atrial fibrillation; E11.65 Type 2 diabetes mellitus with hyperglycemia; F41.9 Anxiety disorder, unspecified; F32.A Depression, unspecified; E78.5 Hyperlipidemia, unspecified; E11.40 Type 2 diabetes mellitus with diabetic neuropathy, unspecified; G25.81 Restless legs syndrome; Z95.1 Presence of aortocoronary bypass graft; Z95.5 Presence of coronary angioplasty implant and graft; Z90.49 Acquired absence of other specified parts of digestive tract; Z90.89 Acquired absence of other organs; Z98.890 Other specified postprocedural states; Z87.891 Personal history of nicotine dependence; Z88.5 Allergy status to narcotic agent; Z88.8 Allergy status to other drugs, medicaments and biological substances; Z79.4 Long term (current) use of insulin; Z79.52 Long term (current) use of systemic steroids; Z79.82 Long term (current) use of aspirin; Z79.899 Other long term (current) drug therapy
CPT/HCPCS: 0241U; 36415; 71045; 80053; 80069; 82947; 83036; 83605; 83735; 83880; 84145; 84484; 85025; 87040; 93005; 93010; 93308; 93321; 94640; 94660; 94760; 94762; 96365; 96375; 97110; 97162; 97530; 99285-25; A9270; J0153; J0248; J0456; J0610; J0696; J1100; J1650; J1815; J1940; J7030; J7040; J7050; J7060

== ENCOUNTER 2021-12-06 05:41 | Inpatient (IN) | payer OTHER ==
[~2021-12-06] VITALS: Ht 170.2 cm; Wt 81.2 kg
[~2021-12-06 05:41] MED LIST changes: +BENZ100A PO; +BUME1 PO; +CARV25 PO; +DILT30 PO; +HUMALOG KW100 UNIT/1 SC
[2021-12-06 06:49] LABS: BASOPHILS ABSOLUTE AUTO 0.01 K/mm3 (0.00-0.23); BASOPHILS PERCENT AUTO 0 % (0-2); EOSINOPHILS ABSOLUTE AUTO 0.04 K/mm3 (0.00-0.68); EOSINOPHILS PERCENT AUTO 0 % (0-6); Hematocrit 24.5 % (37.0-53.0); Hemoglobin 8.5 g/dL (13.5-17.5); IMMATURE GRAN ABSOLUTE AUTO 0.51 K/mm3 (0.00-0.10); IMMATURE GRAN PERCENT AUTO 4 % (0-1); LYMPHOCYTES ABSOLUTE AUTO 1.35 K/mm3 (0.84-5.20); LYMPHOCYTES PERCENT AUTO 10 % (21-46); MONOCYTES PERCENT AUTO 14 % (4-13); Mean Corpuscular HGB 29.8 pg (26.0-34.0); Mean Corpuscular HGB Conc 34.7 g/dL (31.5-36.5); Mean Corpuscular Volume 86 fL (80-100); Mean Platelet Volume 11.5 fL (9.1-12.4); NEUTROPHILS ABSOLUTE AUTO 9.83 K/mm3 (1.96-9.15); NEUTROPHILS PERCENT AUTO 72 % (41-73); NRBC ABSOLUTE 0.09 K/mm3 (0.00-0.02); NRBC Auto 0.7 /100 WBC (0.0-0.2); Platelet Count 236 K/mm3 (150-400); RDW Coefficient Variation 13.7 % (11.7-14.2); RDW Standard Deviation 42.5 fL (35.1-46.3); Red Blood Cell Count 2.85 M/mm3 (4.30-5.90); White Blood Cell Count 13.64 K/mm3 (4.00-11.30)
[2021-12-06 06:50] LABS: Base Excess Venous -3.2 mmol/L; Bicarbonate Venous 21.8 mmol/L (24.0-30.0); PCO2 Venous 39.8 mmHg (38-42); pH Blood Venous 7.36 (7.34-7.37)
[2021-12-06 07:11] LABS: Albumin, Blood 2.5 g/dL (3.4-5.0); Bilirubin, Direct 0.2 mg/dL (0.0-0.3); Bilirubin, Indirect 0.5 mg/dL (0.1-0.7); Bilirubin, Total 0.7 mg/dL (0.1-1.0); Bun/Creatinine Ratio 32.7 (12.0-20.0); Creatinine, Blood 2.54 mg/dL (0.60-1.20); Globulin, Blood 2.4 g/dL (2.2-4.0); Magnesium, Blood 1.9 mg/dL (1.6-2.4); Total Protein, Blood 4.9 g/dL (6.4-8.2)
[2021-12-06 08:10] LABS: Source, Urine Straight Cath
[2021-12-06 08:12] LABS: Appearance, Urine Clear (Clear); Bilirubin, Urine Neg (Neg); Blood, Urine Neg (Neg); Color, Urine Yellow (P-Yellow); Glucose Qualitative, Urine Neg (Neg); Ketones, Urine Neg (Neg); Leukocyte Esterase, Urine Neg (Neg); Nitrite, Urine Neg (Neg); Protein, Urine Neg (Neg); Urobilinogen, Urine NORM (Normal)
--- NOTE | 2021-12-06 18:09 | NUR ---
PT ARRIVED FROM ER THIS EVENING WITH DX OF ACTURE RENAL FAILURE. PT DENIES CP AND SOB UPON ARRIVAL. PT WAS D/C FROM THIS HOSPITAL YESTERDAY FOR COMPLICATIONS FROM COVID. PT HAS TWO FALLS SINCE BEING D/C TO HOME. PT WITH EXTENSIVE BRUISING TO RT THIGH AND GROIN FROM FALL. PT IS ON XARELTO FOR AFIB, WAS EVALUATED FOR HEAD INJURY IN ER. PT A/O X4, ANSWERING QUESTIONS APPROPRIATELY IN FULL SENTENCES. VSS. PT REFUSED DINNER TRAY. LIGHTS DIMMED FOR COMFORT
[2021-12-07 04:14] LABS: Hematocrit 22.3 % (37.0-53.0); Hemoglobin 7.6 g/dL (13.5-17.5); Mean Corpuscular HGB 30.2 pg (26.0-34.0); Mean Corpuscular HGB Conc 34.1 g/dL (31.5-36.5); Mean Corpuscular Volume 89 fL (80-100); Mean Platelet Volume 11.5 fL (9.1-12.4); NRBC ABSOLUTE 0.29 K/mm3 (0.00-0.02); NRBC Auto 2.1 /100 WBC (0.0-0.2); Platelet Count 259 K/mm3 (150-400); RDW Coefficient Variation 14.3 % (11.7-14.2); RDW Standard Deviation 43.8 fL (35.1-46.3); Red Blood Cell Count 2.52 M/mm3 (4.30-5.90); White Blood Cell Count 14.06 K/mm3 (4.00-11.30)
[2021-12-07 04:37] LABS: Albumin, Blood 2.6 g/dL (3.4-5.0); Bun/Creatinine Ratio 37.7 (12.0-20.0); Calcium, Blood 8.5 mg/dL (8.5-10.1); Creatinine, Blood 2.31 mg/dL (0.60-1.20); Globulin, Blood 2.7 g/dL (2.2-4.0); Potassium, Blood 4.1 mmol/L (3.5-5.5); Total Protein, Blood 5.3 g/dL (6.4-8.2)
[2021-12-07 04:49] LABS: BAND PERCENT MAN 7 % (0-8); BASOPHILS PERCENT MAN 0 % (0-2); EOSINOPHILS ABSOLUTE MAN 0.28 K/mm3 (0.00-0.68); EOSINOPHILS PERCENT MAN 2 % (0-6); LYMPHOCYTES ABSOLUTE MAN 1.26 K/mm3 (0.84-5.20); LYMPHOCYTES PERCENT MAN 9 % (21-46); METAMYELOCYTE ABSOLUTE MAN 0.42 K/mm3 (0.00-0.00); METAMYELOCYTE PERCENT MAN 3 % (0-0); MONOCYTES ABSOLUTE MAN 1.26 K/mm3 (0.16-1.47); MONOCYTES PERCENT MAN 9 % (4-13); MYELOCYTE ABSOLUTE MAN 0.28 K/mm3 (0.00-0.00); MYELOCYTE PERCENT MAN 2 % (0-0); NEUTROPHILS ABSOLUTE MAN 10.54 K/mm3 (1.96-9.15); SEG NEUTROPHILS PERCENT MAN 68 % (41-73); TOTAL CELLS COUNTED 100
--- NOTE | 2021-12-07 05:41 | NUR ---
NOC SHIFT SUMMARY ASSUMED CARE OF PT @ 191. PT ORIENTED X3 OVERNIGHT, SOME CONFUSION WHEN FIRST WAKING UP, BUT REORIENTS QUICKLY. VSS PER PT TREND, SR ON TELEMETRY. ON RA COMPLAINTS OF HIP PAIN EARLY ON IN SHIFT, RESOLVED WITH AVAILABLE PRNS. BEDREST. ADEQUATE UOP. WILL CONTINUE TO MONITOR AND PASS ON TO DAY RN.
--- NOTE | 2021-12-07 10:39 | NUR ---
CARE NOTE THIS AM PT APPEARED LETHARGIC BUT WOULD WAKE TO VERABL STIMULI. HE APPEARED CONFUSED AND WAS ALERT TO SELF AND FOLLOWING DIRECTIONS ONLY. THIS NURSE WAS AT BEDSIDE TO ADMINISTER MORNING MEDICATIONS AND PT APPEARED MORE LETHARGIC. THIS NURSE HAS HELD MORNING MEDS DUE TO LETHARGY. THIS NURSE ALSO CALLED DR. SULTANA TO UPDATE AT APPROX. 1035 WITH NO ANSWER. IMPROVEMENT NURSE MAGDALENO DICKEY ALSO CONSULTED. THIS NURSE ALSO COMMUNICATED WITH RESPIRATORY THERAPISTS FORTINO ABOUT NEED FOR PT TO BE ON CPAP, DR. SULTANA ALSO MADE AWARE. WILL CONTINUE TO MONITOR. IS AT BEDSIDE.
--- NOTE | 2021-12-07 11:03 | NUR ---
CARE NOTE PT ALERT TO TAKE PILLS BUT THEN FELL BACK ASLEEP WITHOUT EATING BREAKFAST. HE IS MORE RESPONSIVE TO VERBAL STIMULI BUT STILL LETHARGIC.
[2021-12-07 12:21] LABS: Bicarbonate Venous 23.6 mmol/L (24.0-30.0); PCO2 Venous 33.5 mmHg (38-42); PO2 Venous 55.4 mmHg (38-42); pH Blood Venous 7.45 (7.34-7.37)
--- NOTE | 2021-12-07 18:16 | NUR ---
SHIFT SUMMARY PT HAS BEEN ALERT TO SELF AND . AT TIMES HE IS ORIENTED TO PLACE. AT TIMES HE WILL FOLLOW COMMANDS APPROPRIATELY BUT THERE ARE ALSO EPISODES WHERE PT CANNOT MAINTAIN WAKEFULLNESS LONG ENOUGH TO FOLLOW THROUGH WITH COMMANDS SUCH WITH EATING. SPO2 HAS MAINTAINED 99-100% VIA CPAP, PRESSURES 5-20 AUTOMATIC. HR HAS BEEN SINUS RYTHM IN 70'S PER TELE REPORT. AT APPROX 1100, SBP WAS 95, DR. SULTANA MADE AWARE. 500 ML NS BOLUS X 2 GIVEN AND ORDERS OF MAP GOAL TO BE AT LEAST 65. SBP IMPROVED WITH RANGE OF 99-117 AND MAP HAS MAINTAINED 65 AND ABOVE SINCE FLUID BOLUS ADMINISTRATION. IV IN R FOREARM IS SALINE LOCKED. HE HAS BEEN ABLE TO VOID IN URINAL BUT HAS ALSO HAD EPISODES OF INCONTINENCE. WILL CONTINUE TO MONITOR UNTIL REPORT GIVEN. CALL LIGHT IN REACH
--- NOTE | 2021-12-07 18:32 | NUR ---
CARE NOTE UP BP MONITORING BP IS NOW 104/34 WITH MAP OF 56, DR. NAJERA MADE AWARE. WILL CONTINUE TO MONITOR.
[2021-12-07 19:23] LABS: Hematocrit 19.9 % (37.0-53.0); Hemoglobin 6.7 g/dL (13.5-17.5)
--- NOTE | 2021-12-07 23:03 | NUR ---
PT UPDATE WENT INTO PT ROOM D/T PT BECOMING OFF TELE. FOUND PT WITH TELEMETRY STICKERS OFF, IV PULLED OUT, CPAP OFF, AND URINATED ON FLOOR/BEDDING. PT STATES, I DONT KNOW WHATS WRONG WITH ME. PT REMINDED HE HAS COVID. PT STATES, "OH YA, THATS RIGHT.". CPAP REAPPLIED, PT BACK ON TELE, IV START CURRENTLY BEING ATTEMPTED.
--- NOTE | 2021-12-08 00:25 | NUR ---
REPORT RECIEVED FROM CHANTEL DEPUTY SHERIFF CUSTODY AND AWAITING PT T/F TO ROOM 328.
--- NOTE | 2021-12-08 00:56 | NUR ---
PT T/F TO ROOM 328 AT 0055 AND WAS ORIENTED TO NEW ROOM AND CALL SYSTEM. THIS RN AGREES TO TITLE CHECKER'S ASSESSMENT FINDINGS. HE DENIES ALL COMPLAINTS/CONCERNS. BED ALARM ON FOR FALL RISK. ENHANCED PRECAUTIONS IN PLACE FOR COVID.
--- NOTE | 2021-12-08 04:56 | NUR ---
SUMMARY: PT WAKEFUL TO VOICE BUT SLEPT MOST OF NOCTE SINCE ARRIVAL FROM PCU. HE WAS ORIENTED TO ROOM AND CALL SYSTEM BUT IS FORGETFUL W/BED ALARM ON FOR WEAKNESS AND FALLS PRIOR TO ADMIT. PT WAS IMPULSIVE TO EOB TO VOID W/URINAL ASSIST PROVIDED PRN. HE REMAINS IN ISOLATION FOR COVID W/CPAP AND CONT.BIOX INTACT. RESPS E/U, NO S/S RESP DISTRESS AND SPO2 WNL. PT IS NSR AT 70'S BPM ON TELEMETRY. NS INFUSES AT 75 ML/HR AND POOR APPETITE REPORTED BY AIRLINE COUNTER AGENT SO HS INSULIN WAS HELD BY HER. VSS/AFEBRILE AND BP IS TRENDING UPWARD AFTER COMMENCING CONT IVF AND RECIEVING X1 MIDODRINE BY AIRLINE COUNTER AGENT AT 1902. HGB WAS 6.7, WAS AWARE ON DAY SHIFT AND NO NEW ORDERS RECIEVED. AM LABS PENDING, WILL NOTIFY MD ROBLES. NO ACUTE CHANGES. WCTM AND REPORT TO DAY RN.
[2021-12-08 05:33] LABS: Hematocrit 19.7 % (37.0-53.0); Hemoglobin 6.4 g/dL (13.5-17.5); Mean Corpuscular HGB Conc 32.5 g/dL (31.5-36.5); Mean Corpuscular Volume 93 fL (80-100); Mean Platelet Volume 10.9 fL (9.1-12.4); NRBC ABSOLUTE 0.29 K/mm3 (0.00-0.02); NRBC Auto 2.6 /100 WBC (0.0-0.2); Platelet Count 273 K/mm3 (150-400); RDW Standard Deviation 48.3 fL (35.1-46.3); Red Blood Cell Count 2.13 M/mm3 (4.30-5.90); White Blood Cell Count 11.05 K/mm3 (4.00-11.30)
[2021-12-08 05:57] LABS: Albumin, Blood 2.3 g/dL (3.4-5.0); Albumin/Globulin Ratio 0.8 (0.8-1.8); Bilirubin, Total 1.1 mg/dL (0.1-1.0); Bun/Creatinine Ratio 36.8 (12.0-20.0); Calcium, Blood 8.4 mg/dL (8.5-10.1); Creatinine, Blood 1.93 mg/dL (0.60-1.20); Globulin, Blood 2.8 g/dL (2.2-4.0); Potassium, Blood 4.2 mmol/L (3.5-5.5); Total Protein, Blood 5.1 g/dL (6.4-8.2)
[2021-12-08 05:59] LABS: BAND PERCENT MAN 5 % (0-8); BASOPHILS PERCENT MAN 0 % (0-2); EOSINOPHILS PERCENT MAN 0 % (0-6); LYMPHOCYTES ABSOLUTE MAN 0.22 K/mm3 (0.84-5.20); LYMPHOCYTES PERCENT MAN 2 % (21-46); METAMYELOCYTE ABSOLUTE MAN 0.11 K/mm3 (0.00-0.00); METAMYELOCYTE PERCENT MAN 1 % (0-0); MONOCYTES ABSOLUTE MAN 0.22 K/mm3 (0.16-1.47); MONOCYTES PERCENT MAN 2 % (4-13); MYELOCYTE ABSOLUTE MAN 0.11 K/mm3 (0.00-0.00); MYELOCYTE PERCENT MAN 1 % (0-0); NEUTROPHILS ABSOLUTE MAN 10.38 K/mm3 (1.96-9.15); SEG NEUTROPHILS PERCENT MAN 89 % (41-73); TOTAL CELLS COUNTED 100
--- NOTE | 2021-12-08 06:37 | NUR ---
MADE AWARE OF TRENDING DOWNWARD HGB, NOW 6.4 WAS 6.7 IN PRESENCE OF GLENN, RECENT EF OF 22% AND ONGOING COVID. NEW ORDERS RECIEVED FOR 1 UNIT PRBC'S.
--- NOTE | 2021-12-08 18:32 | NUR ---
PATIENT A/OX4 THIS SHIFT, UP WITH FWW, GB AND 1 ASSIST. FALL PRECAUTIONS IN PLACE. LARGE BRUISED ARE TO R HIP/THIGH AND LOWER LEG FROM RECENT FALL. X-RAY TAKEN TODAY AND DID NNOT SHOW A FX. CONTINUES TO HAVE A VERY POOR APPEITE. ACHS BLOOD SUGARS, COVERAGE PER SS. 1 UNIT PRBC'S GIVEN THIS AM. VSS, ON RA WITH CPAP AT NIGHT. SATS 98-100% ON RA. USES URINAL WITH ASSITANCE TO VOID.
--- NOTE | 2021-12-08 21:22 | NUR ---
PT UNABLE TO CONFIRM OR DENY PERCODAN/OXYCODONE ALLERGY SO MORPHINE PRN CONTRAINDICATED. MADE AWARE W/MED DC'D AND NEW ORDER OBTAINED FOR ATIVAN 1MG IV X1.
--- NOTE | 2021-12-08 21:30 | NUR ---
PHARMACY ALERTED RN THAT ATIVAN IV IS UNAVAILABLE AT THIS TIME. PT APPEARS MORE SETTLED AT THIS TIME AND STATES PAIN AND BREATHING HAS IMPROVED. ANXIETY AND ADDITIONAL PAIN MED DOESN'T SEEM NECESSARY AT THIS TIME. COUGHING PERSISTS SO PLAN TO ADMIN ROBITUSSIN PRN. WILL ALERT MD.
--- NOTE | 2021-12-08 22:17 | NUR ---
TELE MONITOR ALERTED RN THAT PT APPEARED TO BE HAVING NEW ONSET ST ELEVATION SINCE BEGINNING OF SHIFT. SHE REPORTED HE WAS NSR AT 80'S-90'S BUT WAS SUSTAINING ST ELEVATION FOR LONGER PERIODS OF TIME. PT DENIED CP AND ALL S/S CARDIAC DISTRESS AT THIS TIME BUT HE'D BEEN VERY ANXIOUS R/T PAIN WHICH EXACERBATED SOB/DYSPNEA AND CAUSED PT TO HAVE AN UNCONTROLLED COUGHING FIT. PT WAS MEDICATED W/TYLENOL AND TESSALON PRN FOR SOME IMPROVEMENT BUT PT STILL APPEARED SOMEWHAT UNCOMFORTABLE AND UNSETTLED. MADE AWARE OF FINDINGS W/NEW ORDERS RECIEVED FOR STAT EKG, ROBITUSSIN PRN AND MORPHINE PRN. [facility] MONITOR CLOSELY, ADMIN MEDS AND NOTIFY MD OF RESULTS.
--- NOTE | 2021-12-08 23:00 | NUR ---
ROBITUSSIN RECIEVED AND EKG COMPLETED. DC'D X1 ATIVAN AND PT CONT'S TO APPEAR MUCH MORE SETTLED. COMMAND CENTER OFFICER STATED PT HAS CONVERTED BACK TO NSR AT 80'S-90'S BPM W/O ST ELEVATION SINCE 2214. TONIGHT'S EKG RESULTS W/COMPARISON TO EKG ON 12/06/21 RELAYED TO . NO NEW ORDERS RECIEVED AT THIS TIME. PT CURRENTLY ASYMPTOMATIC OF RESP AND CARDIAC DISTRESS. SPO2 WNL ON CPAP W/CONT BIOX INTACT. WCTM CLOSELY FOR CHANGES/WORSENING.
--- NOTE | 2021-12-09 04:59 | NUR ---
SUMMARY: PT BEGAN SHIFT VERY ANXIOUS AND IN DISTRESS R/T R.LEG PAIN. HE BECAME PANICKED, SOB/DYSPNEIC AND DEVELOPED A COUGHING FIT UNRELIEVED BY PRN ROB CHICAS. TYLENOL WAS PROVIDED FOR TOLERABLE PAIN RELIEF BUT PRN ROBITUSSIN WAS RX'D AND RECIEVED FOR BETTER EFFECT. 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 HE DENIED CP AND ALL OTHER S/S CARDIAC DISTRESS BUT STAT EKG WAS OBTAINED. RESULTS APPEARED SIMILAR TO PREVIOUS EKG DONE X2 DAYS PRIOR. PT CALMED ONCE PAIN AND COUGH WERE MANAGED AND ST ELEVATION RESOLVED SPONTANEOUSLY. WAS AWARE OF EVENTS. HE IS NSR AT 80'S-90'S BPM AT PRESENT W/O RESP DISTRESS. HE TOLERATED HIS CPAP W/CONT BIOX INTACT AND RESPS E/U, NO CURRENT DYSPNEA NOTED. URINAL ASSIST PROVIDED PRN AND PT CALLS INTO HALLS WHEN HE NEEDS HELP. HE INTERMITTENTLY USES CALL LIGHT CORRECTLY BUT BED ALARM IS ON FOR IMPULSIVITY AND RECENT FALL AT HOME. R.LEG, BUTTOCKS AND PAULY AREA ARE GROSSLY BRUISED R/T FALL. PT WAS ASSISTED W/REPOSITIONG. NO ACUTE CHANGES, VSS/AFEBRILE. WCTM/REPORT TO DAY RN.
[2021-12-09 05:16] LABS: BASOPHILS ABSOLUTE AUTO 0.03 K/mm3 (0.00-0.23); BASOPHILS PERCENT AUTO 0 % (0-2); EOSINOPHILS ABSOLUTE AUTO 0.25 K/mm3 (0.00-0.68); EOSINOPHILS PERCENT AUTO 2 % (0-6); Hematocrit 22.8 % (37.0-53.0); Hemoglobin 7.6 g/dL (13.5-17.5); IMMATURE GRAN ABSOLUTE AUTO 0.62 K/mm3 (0.00-0.10); IMMATURE GRAN PERCENT AUTO 6 % (0-1); LYMPHOCYTES ABSOLUTE AUTO 1.26 K/mm3 (0.84-5.20); LYMPHOCYTES PERCENT AUTO 12 % (21-46); MONOCYTES ABSOLUTE AUTO 1.27 K/mm3 (0.16-1.47); MONOCYTES PERCENT AUTO 12 % (4-13); Mean Corpuscular HGB Conc 33.3 g/dL (31.5-36.5); Mean Corpuscular Volume 93 fL (80-100); Mean Platelet Volume 10.4 fL (9.1-12.4); NEUTROPHILS ABSOLUTE AUTO 7.42 K/mm3 (1.96-9.15); NEUTROPHILS PERCENT AUTO 68 % (41-73); NRBC ABSOLUTE 0.23 K/mm3 (0.00-0.02); NRBC Auto 2.1 /100 WBC (0.0-0.2); Platelet Count 302 K/mm3 (150-400); RDW Coefficient Variation 15.6 % (11.7-14.2); RDW Standard Deviation 47.9 fL (35.1-46.3); Red Blood Cell Count 2.45 M/mm3 (4.30-5.90); White Blood Cell Count 10.85 K/mm3 (4.00-11.30)
[2021-12-09 05:32] LABS: Albumin, Blood 2.5 g/dL (3.4-5.0); Albumin/Globulin Ratio 0.8 (0.8-1.8); Bun/Creatinine Ratio 33.7 (12.0-20.0); Calcium, Blood 8.8 mg/dL (8.5-10.1); Creatinine, Blood 1.75 mg/dL (0.60-1.20); Potassium, Blood 4.7 mmol/L (3.5-5.5); Total Protein, Blood 5.5 g/dL (6.4-8.2)
--- NOTE | 2021-12-09 16:43 | NUR ---
PATIENT A/OX4, CAN GET ANXIOUS BUT IS COOPERATIVE WITH CARE. ATARAX STARTED TODAY TO HELP WITH ANXIETY. COUGH IMPROVED SOME WITH COUGH SYRUPS ADDED. VSS, CONTINUES ON RA WITH BIPAP AT [facility]. PT/OT RECOMMENDING SNF AT D/C. PATIENT UP WITH FWW, GB AND 1 ASSIST. FALL PRECAUTIONS IN PLACE BECAUSE PATIENT CAN BE IMPULSIVE AT TIMES. CONTINENT OF BOWEL/BLADDER. EXTENSIVE BRUISING TO RLE FROM RECENT FALL. REPORTS RLE PAIN, BUT REFUSES NEED FOR PAIN MEDICATION. MYA AT BEDSIDE THIS EVENING AND WOULD LIKE A CALL FROM THE DOCTOR TOMORROW TO GET AN UPDATE. DIETARY CONSULT ORDERED D/T PATIENTS CONTINUED POOR APPETITE. GLUCERNA USED TO SUPPLEMENT DIET TODAY AND PATIENT IS DRINKING THOSE WELL.
--- NOTE | 2021-12-10 05:20 | NUR ---
SUMMARY: PT A/OX3, CALLS APPROPRIATELY TO SPECIFY NEEDS AND IS PLEASANT AND COOPERATIVE W/CARE. HE WAS MUCH MORE COHERENT AND CALM THIS EVENING AND DIDN'T REQUIRE ANY PRN ATARAX MEDS. COUGH PERSISTS BUT IMPROVED W/COUGH SYRUP. HE USED URINAL INDEPENDENTLY BUT HAS BED ALARM ON FOR OCCASIONAL IMPULSIVITY TO EOB TO VOID. RLE REMAINS EXTENSIVELY BRUISED FROM FALL PRIOR TO ADMISSION. HE REPORTS LEG IS PAINFUL BUT DENIED NEEDING PRN PAIN MEDS. PT TOLERATED CPAP T/O NOCTE W/SPO2 WNL AND NO S/S RESP DISTRESS OBSERVED THIS SHIFT. VSS/AFEBRILE, NO ACUTE CHANGES. WCTM AND REPORT TO DAY RN.
[2021-12-10 06:19] LABS: BASOPHILS ABSOLUTE AUTO 0.02 K/mm3 (0.00-0.23); BASOPHILS PERCENT AUTO 0 % (0-2); EOSINOPHILS ABSOLUTE AUTO 0.26 K/mm3 (0.00-0.68); EOSINOPHILS PERCENT AUTO 3 % (0-6); Hematocrit 22.9 % (37.0-53.0); Hemoglobin 7.4 g/dL (13.5-17.5); IMMATURE GRAN ABSOLUTE AUTO 0.42 K/mm3 (0.00-0.10); IMMATURE GRAN PERCENT AUTO 4 % (0-1); LYMPHOCYTES ABSOLUTE AUTO 1.04 K/mm3 (0.84-5.20); LYMPHOCYTES PERCENT AUTO 10 % (21-46); MONOCYTES ABSOLUTE AUTO 1.15 K/mm3 (0.16-1.47); MONOCYTES PERCENT AUTO 12 % (4-13); Mean Corpuscular HGB 30.7 pg (26.0-34.0); Mean Corpuscular HGB Conc 32.3 g/dL (31.5-36.5); Mean Corpuscular Volume 95 fL (80-100); Mean Platelet Volume 10.4 fL (9.1-12.4); NEUTROPHILS PERCENT AUTO 71 % (41-73); NRBC ABSOLUTE 0.13 K/mm3 (0.00-0.02); NRBC Auto 1.3 /100 WBC (0.0-0.2); Platelet Count 286 K/mm3 (150-400); RDW Coefficient Variation 16.9 % (11.7-14.2); RDW Standard Deviation 50.4 fL (35.1-46.3); Red Blood Cell Count 2.41 M/mm3 (4.30-5.90); White Blood Cell Count 9.99 K/mm3 (4.00-11.30)
[2021-12-10 06:38] LABS: Albumin, Blood 2.6 g/dL (3.4-5.0); Albumin/Globulin Ratio 0.9 (0.8-1.8); Bilirubin, Total 2.4 mg/dL (0.1-1.0); Bun/Creatinine Ratio 32.4 (12.0-20.0); Calcium, Blood 8.8 mg/dL (8.5-10.1); Creatinine, Blood 1.7 mg/dL (0.60-1.20); Globulin, Blood 2.9 g/dL (2.2-4.0); Potassium, Blood 5.1 mmol/L (3.5-5.5); Total Protein, Blood 5.5 g/dL (6.4-8.2)
--- NOTE | 2021-12-10 18:26 | NUR ---
PATIENT A/OX4, VERY DROWSY AND NOT FEELING WELL TODAY. CONTINUES TO REFUSE MEALS, WILL DRINK PART OF A GLUCERNA. BLOOD SUGARS ACHS, PATIENT DID RUN HIGH TODAY AND DR. HERRERA WOULD LIKE LONG ACTING INSULIN GIVEN TONIGHT. PATIENT UP AT SIDE OF THE BED WITH ASSIST TO USE URINAL. UP TO CHAIR FOR DINNER, BUT HAS NO APPETITE. REMERON WILL BE STARTED THIS EVENING. PERSISTENT NONPRODUCTIVE COUGH. DELSYM AND ROBUTUSSIN USED TO TREAT WITH SOME RELIEF. COVID POSITIVE, ON RA. CPAP USED AT NIGHT. LARGE BRUISE TO RLE FROM RECENT FALL. FALL PRECAUTIONS IN PLACE, PATIENT CAN BE IMPULSIVE. VERY PLEASANT AND COOPERATIVE, NEEDS LOTS OF ENCOURAGEMENT.
--- NOTE | 2021-12-11 05:07 | NUR ---
PT VERY SLEEPY THIS SHIFT, USES URINAL AT BEDSIDE, ON RA WITH CONTINUOUS BIOX. O2 SATS 96-92% CPAP AT HS. CBG AC/HS. TELE IN SR.
[2021-12-11 06:10] LABS: BASOPHILS ABSOLUTE AUTO 0.03 K/mm3 (0.00-0.23); BASOPHILS PERCENT AUTO 0 % (0-2); EOSINOPHILS ABSOLUTE AUTO 0.25 K/mm3 (0.00-0.68); EOSINOPHILS PERCENT AUTO 2 % (0-6); Hematocrit 25.5 % (37.0-53.0); Hemoglobin 8.2 g/dL (13.5-17.5); IMMATURE GRAN ABSOLUTE AUTO 0.23 K/mm3 (0.00-0.10); IMMATURE GRAN PERCENT AUTO 2 % (0-1); LYMPHOCYTES ABSOLUTE AUTO 1.03 K/mm3 (0.84-5.20); LYMPHOCYTES PERCENT AUTO 9 % (21-46); MONOCYTES ABSOLUTE AUTO 1.16 K/mm3 (0.16-1.47); MONOCYTES PERCENT AUTO 10 % (4-13); Mean Corpuscular HGB 31.4 pg (26.0-34.0); Mean Corpuscular HGB Conc 32.2 g/dL (31.5-36.5); Mean Corpuscular Volume 98 fL (80-100); Mean Platelet Volume 10.1 fL (9.1-12.4); NEUTROPHILS ABSOLUTE AUTO 9.09 K/mm3 (1.96-9.15); NEUTROPHILS PERCENT AUTO 77 % (41-73); NRBC ABSOLUTE 0.16 K/mm3 (0.00-0.02); NRBC Auto 1.4 /100 WBC (0.0-0.2); Platelet Count 289 K/mm3 (150-400); RDW Coefficient Variation 18.6 % (11.7-14.2); RDW Standard Deviation 53.8 fL (35.1-46.3); Red Blood Cell Count 2.61 M/mm3 (4.30-5.90); White Blood Cell Count 11.79 K/mm3 (4.00-11.30)
[2021-12-11 06:39] LABS: Albumin, Blood 2.6 g/dL (3.4-5.0); Albumin/Globulin Ratio 0.8 (0.8-1.8); Bilirubin, Total 2.9 mg/dL (0.1-1.0); Bun/Creatinine Ratio 30.2 (12.0-20.0); Creatinine, Blood 1.69 mg/dL (0.60-1.20); Globulin, Blood 3.3 g/dL (2.2-4.0); Potassium, Blood 4.7 mmol/L (3.5-5.5); Total Protein, Blood 5.9 g/dL (6.4-8.2)
--- NOTE | 2021-12-11 13:02 | NUR ---
Patient is lying in bed and alert. Patient shares about his medical issues and the plan of care and of d/c. He tells me about his Confucianist sara and his desire to Father Joe. After providing therapeutic listening and companionship. I go and call the Confucianist Anglican and speak with the medical office secretary who informs me that Father Joe will be happy to visit pt once he is settled at the SNF he will d/c to. I then share the message with pt, who responds with gratitude and shows signs of an elevated mood. I will continue to remain available to patient and family.
--- NOTE | 2021-12-11 17:37 | NUR ---
SHIFT SUMMARY PT A&O X 3. VSS. PT IS AT TIMES CONFUSED & FORGETFUL. IS PLEASANT & COOPERATIVE. EASILY REDIRECTED. APPETITE IS IMPROVING. POSSIBLE DC TO [facility] TOMORROW.
--- NOTE | 2021-12-12 04:27 | NUR ---
A&O TO SELF, FAMILY, AND PLACE. V/S WNL. CPAP AT HS. IV TO R) FA. CARDIAC DIET. TELE: SR W/ BUNDLE BRANCH WITH PVCS @HR OF 81BPM. PILLS WHOLE WITH WATER, A COUPLE AT A TIME. 1-ASSIST, BS URINAL/COMMODE. NO BM THIS SHIFT. PRUNE JUICE GIVEN FOR CONSTIPATION. PRN TESSALON GIVEN FOR FREQUENT COUGH. BED ALARM ON AT ALL TIMES. ABLE TO ROL WELL. CONTINOUS PULSE OX. WILL CONTINUE TO MONITOR.
[2021-12-12 05:59] LABS: BASOPHILS ABSOLUTE AUTO 0.04 K/mm3 (0.00-0.23); BASOPHILS PERCENT AUTO 0 % (0-2); EOSINOPHILS ABSOLUTE AUTO 0.27 K/mm3 (0.00-0.68); EOSINOPHILS PERCENT AUTO 3 % (0-6); Hematocrit 25.2 % (37.0-53.0); Hemoglobin 7.9 g/dL (13.5-17.5); IMMATURE GRAN ABSOLUTE AUTO 0.16 K/mm3 (0.00-0.10); IMMATURE GRAN PERCENT AUTO 2 % (0-1); LYMPHOCYTES ABSOLUTE AUTO 1.42 K/mm3 (0.84-5.20); LYMPHOCYTES PERCENT AUTO 13 % (21-46); MONOCYTES ABSOLUTE AUTO 1.14 K/mm3 (0.16-1.47); MONOCYTES PERCENT AUTO 11 % (4-13); Mean Corpuscular HGB Conc 31.3 g/dL (31.5-36.5); Mean Corpuscular Volume 99 fL (80-100); Mean Platelet Volume 10.2 fL (9.1-12.4); NEUTROPHILS ABSOLUTE AUTO 7.79 K/mm3 (1.96-9.15); NEUTROPHILS PERCENT AUTO 72 % (41-73); NRBC ABSOLUTE 0.05 K/mm3 (0.00-0.02); NRBC Auto 0.5 /100 WBC (0.0-0.2); Platelet Count 297 K/mm3 (150-400); RDW Coefficient Variation 19.2 % (11.7-14.2); RDW Standard Deviation 59.6 fL (35.1-46.3); Red Blood Cell Count 2.55 M/mm3 (4.30-5.90); White Blood Cell Count 10.82 K/mm3 (4.00-11.30)
[2021-12-12 06:12] LABS: Albumin, Blood 2.5 g/dL (3.4-5.0); Albumin/Globulin Ratio 0.7 (0.8-1.8); Bilirubin, Total 2.7 mg/dL (0.1-1.0); Bun/Creatinine Ratio 28.2 (12.0-20.0); Calcium, Blood 8.9 mg/dL (8.5-10.1); Creatinine, Blood 1.74 mg/dL (0.60-1.20); Globulin, Blood 3.4 g/dL (2.2-4.0); Potassium, Blood 4.4 mmol/L (3.5-5.5); Total Protein, Blood 5.9 g/dL (6.4-8.2)
--- NOTE | 2021-12-12 18:22 | NUR ---
SHIFT SUMMARY PT A&O X 4. VSS. PT IS 1 PERSON MIN ASSIST WITH A WALKER. PLAN IS TO BE DC'D TO SNF POSSIBLY TOMORROW.
--- NOTE | 2021-12-13 05:34 | NUR ---
PT IS A/O THIS SHIFT, MEDICATED FOR COUGH. CPAP AT HS, ON RA. RECENT HX OF COVID, OUT OF ENHANCED ISOLATION. CBG AC/HS. PT USES URINAL AT BEDSIDE WITH ASSIST. POSSIBLE D/C SOON TO [facility].
[2021-12-13 05:38] LABS: BASOPHILS ABSOLUTE AUTO 0.02 K/mm3 (0.00-0.23); BASOPHILS PERCENT AUTO 0 % (0-2); EOSINOPHILS ABSOLUTE AUTO 0.29 K/mm3 (0.00-0.68); EOSINOPHILS PERCENT AUTO 3 % (0-6); Hematocrit 24.1 % (37.0-53.0); Hemoglobin 7.6 g/dL (13.5-17.5); IMMATURE GRAN ABSOLUTE AUTO 0.11 K/mm3 (0.00-0.10); IMMATURE GRAN PERCENT AUTO 1 % (0-1); LYMPHOCYTES ABSOLUTE AUTO 1.13 K/mm3 (0.84-5.20); LYMPHOCYTES PERCENT AUTO 12 % (21-46); MONOCYTES ABSOLUTE AUTO 0.89 K/mm3 (0.16-1.47); MONOCYTES PERCENT AUTO 9 % (4-13); Mean Corpuscular HGB 31.5 pg (26.0-34.0); Mean Corpuscular HGB Conc 31.5 g/dL (31.5-36.5); Mean Corpuscular Volume 100 fL (80-100); Mean Platelet Volume 10.2 fL (9.1-12.4); NEUTROPHILS ABSOLUTE AUTO 7.02 K/mm3 (1.96-9.15); NEUTROPHILS PERCENT AUTO 74 % (41-73); NRBC ABSOLUTE 0.02 K/mm3 (0.00-0.02); NRBC Auto 0.2 /100 WBC (0.0-0.2); Platelet Count 267 K/mm3 (150-400); RDW Coefficient Variation 19.8 % (11.7-14.2); RDW Standard Deviation 64.1 fL (35.1-46.3); Red Blood Cell Count 2.41 M/mm3 (4.30-5.90); White Blood Cell Count 9.46 K/mm3 (4.00-11.30)
[2021-12-13 06:10] LABS: Albumin, Blood 2.3 g/dL (3.4-5.0); Albumin/Globulin Ratio 0.7 (0.8-1.8); Bilirubin, Direct 0.5 mg/dL (0.0-0.3); Bilirubin, Indirect 2.1 mg/dL (0.1-0.7); Bilirubin, Total 2.6 mg/dL (0.1-1.0); Creatinine, Blood 1.6 mg/dL (0.60-1.20); Globulin, Blood 3.2 g/dL (2.2-4.0); Magnesium, Blood 2.1 mg/dL (1.6-2.4); Potassium, Blood 4.4 mmol/L (3.5-5.5); Total Protein, Blood 5.5 g/dL (6.4-8.2)
--- NOTE | 2021-12-13 18:20 | NUR ---
DAYSHIFT SUMMARY Patient sleeping soundly this morning, he wanted to sleep in late. RN woke patient up at 0900, patient appeared very sleepy, sitting on edge of bed, continued to nod off to sleep. CBG 260, Vitals stable, notified MD. MD assessed patient, no new orders. Patient more awake the rest of the shift. Continues to have frequent dry hacking cough. Tessalon pearls given PRN. CBGs 323 at lunch, SSI & routine 10u given, this evening CBG 97, insulin held. Plan is to discharge pt to SNF, once H&H, CBGs are controlled.
[2021-12-14 05:09] LABS: BASOPHILS ABSOLUTE AUTO 0.03 K/mm3 (0.00-0.23); BASOPHILS PERCENT AUTO 0 % (0-2); EOSINOPHILS PERCENT AUTO 2 % (0-6); Hematocrit 26.2 % (37.0-53.0); Hemoglobin 8.2 g/dL (13.5-17.5); IMMATURE GRAN ABSOLUTE AUTO 0.09 K/mm3 (0.00-0.10); IMMATURE GRAN PERCENT AUTO 1 % (0-1); LYMPHOCYTES ABSOLUTE AUTO 1.01 K/mm3 (0.84-5.20); LYMPHOCYTES PERCENT AUTO 10 % (21-46); MONOCYTES ABSOLUTE AUTO 0.96 K/mm3 (0.16-1.47); MONOCYTES PERCENT AUTO 9 % (4-13); Mean Corpuscular HGB 31.1 pg (26.0-34.0); Mean Corpuscular HGB Conc 31.3 g/dL (31.5-36.5); Mean Corpuscular Volume 99 fL (80-100); Mean Platelet Volume 10.2 fL (9.1-12.4); NEUTROPHILS ABSOLUTE AUTO 8.03 K/mm3 (1.96-9.15); NEUTROPHILS PERCENT AUTO 78 % (41-73); Platelet Count 257 K/mm3 (150-400); RDW Coefficient Variation 19.9 % (11.7-14.2); RDW Standard Deviation 68.9 fL (35.1-46.3); RETICULOCYTE ABSOLUTE 0.3023 M/mm3 (0.0200-0.1100); RETICULOCYTE COUNT PERCENT 11.45 % (0.50-2.50); Red Blood Cell Count 2.64 M/mm3 (4.30-5.90); White Blood Cell Count 10.32 K/mm3 (4.00-11.30)
[2021-12-14 05:44] LABS: Albumin, Blood 2.4 g/dL (3.4-5.0); Anion Gap 5 mmol/L (6-16); Blood Urea Nitrogen 39 mg/dL (8-24); Bun/Creatinine Ratio 24.7 (12.0-20.0); CO2, Blood 26 mmol/L (21-32); Calcium, Blood 8.9 mg/dL (8.5-10.1); Chloride, Blood 110 mmol/L (98-108); Creatinine, Blood 1.58 mg/dL (0.60-1.20); Glomerular Filtration Rate 44 (60-); Glucose, Blood 233 mg/dL (70-99); Lactate Dehydrogenase (Ld),Bld 275 U/L (100-240); Phosphorus, Blood 2.2 mg/dL (2.5-4.9); Potassium, Blood 4.7 mmol/L (3.5-5.5); Sodium, Blood 141 mmol/L (136-145)
--- NOTE | 2021-12-14 09:06 | NUR ---
Patient awake early this morning, reports difficulty sleeping d/t neck pain. Heat pad applied for pain relief. Patient continues to have dry hacking cough, saturations stable on RA. CBG 202, SSI given. Vitals stable this morning.
--- NOTE | 2021-12-14 17:03 | NUR ---
PATIENT CONTINUES TO COUGH-BARKY COUGH. CHEST XRAY WAS TAKEN TODAY. IT DIDN'T SHOW PNEUMONIA, BUT APPEARS TO SHOW COPD. BLOOD SUGARS HAVE NEEDED COVERAGE IN THE AM, BUT NOT THIS EVENING SO FAR. HE HAS NO CONCERN OTHER THAN HIS COUGH. PLAN IS TO DISCHARGE TO [facility] ON WEDNESDAY.
--- NOTE | 2021-12-15 04:05 | NUR ---
SHIFT SUMMARY: A/O X4, 1 PERSON ASSIST TO STAND AND PIVOT TO BEDSIDE COMMODE. PT HAD LARGE BOWEL MOVEMENT TONIGHT. REPORTED IMPROVED BACK AND NECK PAIN NOT REQUIRING MEDICATION INTERVENTION. LUNG SOUNDS IMPROVED, YET CONTINUED BARKING COUGH- NOTED COUGHING HAS LESSENED IN FREQUENCY. PT CONTINUED TO CALL APPROPRIATELY THROUGHOUT THE NIGHT. PATIENT CONTINUED REPORTED FEELING GENERALLY WEAK, STILL REMAINS ABLE TO REPOSITION SELF IN BED- ASSIST TO BOOST. BED ALARM ACTIVATED, CALL YOUNG AND BELONGINGS IN REACH, BED IN LOW POSITION.
[2021-12-15 05:41] LABS: BASOPHILS ABSOLUTE AUTO 0.04 K/mm3 (0.00-0.23); BASOPHILS PERCENT AUTO 0 % (0-2); EOSINOPHILS ABSOLUTE AUTO 0.25 K/mm3 (0.00-0.68); EOSINOPHILS PERCENT AUTO 3 % (0-6); Hematocrit 25.9 % (37.0-53.0); IMMATURE GRAN ABSOLUTE AUTO 0.06 K/mm3 (0.00-0.10); IMMATURE GRAN PERCENT AUTO 1 % (0-1); LYMPHOCYTES ABSOLUTE AUTO 1.31 K/mm3 (0.84-5.20); LYMPHOCYTES PERCENT AUTO 15 % (21-46); MONOCYTES ABSOLUTE AUTO 0.98 K/mm3 (0.16-1.47); MONOCYTES PERCENT AUTO 11 % (4-13); Mean Corpuscular HGB 30.7 pg (26.0-34.0); Mean Corpuscular HGB Conc 30.9 g/dL (31.5-36.5); Mean Corpuscular Volume 99 fL (80-100); NEUTROPHILS ABSOLUTE AUTO 6.27 K/mm3 (1.96-9.15); NEUTROPHILS PERCENT AUTO 70 % (41-73); Platelet Count 265 K/mm3 (150-400); RDW Coefficient Variation 19.2 % (11.7-14.2); RDW Standard Deviation 68.3 fL (35.1-46.3); Red Blood Cell Count 2.61 M/mm3 (4.30-5.90); White Blood Cell Count 8.91 K/mm3 (4.00-11.30)
[2021-12-15 06:02] LABS: Albumin, Blood 2.3 g/dL (3.4-5.0); Albumin/Globulin Ratio 0.7 (0.8-1.8); Bilirubin, Total 2.1 mg/dL (0.1-1.0); Bun/Creatinine Ratio 21.6 (12.0-20.0); Creatinine, Blood 1.53 mg/dL (0.60-1.20); Globulin, Blood 3.3 g/dL (2.2-4.0); Magnesium, Blood 2.1 mg/dL (1.6-2.4); Potassium, Blood 4.3 mmol/L (3.5-5.5); Total Protein, Blood 5.6 g/dL (6.4-8.2)
--- NOTE | 2021-12-15 07:00 | NUR ---
ASSUMED CARE OF PT- BEDSIDE REPORT COMPLETED WITH NIGHT RN. PT STATED AT THE TIME OF REPORT SHE NEEDED TO GO HOME TO FEED HER PARROTS. PT LEFT AMA FROM HER PREVIOUS ADMIT. PER REPORT FROM NIGHT RN PT WAS ANGRY AND YELLING AT STAFF, BUT RESPONDED WELL WITH CLEAR BOUNDARIES OF WHAT BEHAVIOR IS ALLOWED AND WHAT IS NOT. PT REFUSED TO CHANGE OUT OF HER STREET CLOTHES INTO A HOSPITAL GOWN. SHE HAD A NOSE BLEED LAST NIGHT THAT LEFT PATCHES OF BLOOD STAINS ON HER SWEATSHIRT. PT IN BED, CALL LIGHT IN REACH, PER REPORT SHE DOES NOT CALL APPROPRIATELY.
--- NOTE | 2021-12-15 09:00 | NUR ---
PT SLEEPING SOUNDLY AT THE TIME OF CARE ROUNDING WILL WAKE HER FOR MORNING MEDS.
--- NOTE | 2021-12-15 10:00 | NUR ---
PT MEDICATED WITH MORNING MEDS, STILL A LITTLE CRANKY WITH STAFF BUT WILLING TO TAKE THE MEDICATIONS. PT COVERED IN FECES FROM HER COLOSTOMY BAG, BUT VIOLENLTY REFUSES TO ALLOW STAFF TO CHAGE HER CLOTHES, RADIOLOGY PHYSICIAN ASLO ATTEMPTED WHEN THE PT HAD A BLADDER ACCIDENT SHE AGAIN ANGRILY REFUSED TO ALLOW STAFF TO CHANGE HER CLOTHES.
--- NOTE | 2021-12-15 10:30 | NUR ---
PT OUT IN THE PENA YELLING AT STAFF, SAYS SHE IS LEAVING AND IS UNWILLING TO RETURN TO HER ROOM. RESP RATE ELEVATED, OBVIOUS DYSPNEA WITH THE EXERTION, WHEN STAFF ASK IF SHE IS SHORT OF BREATH SHE GETS ANGRY AND SAYS "NO!" THEN SHE WILL TELL STAFF "I CAN'T BREATHE", PT WAS ASSISTED TO A WC AND RETURNED TO HER ROOM BY ADDITIONAL STAFF MEMBERS. CALLED RT TO REQUEST A BREATHING Tx, O2 SATS GREATER THAN 90% ON 3L O2 VIA NC, PT ON ROOM AIR AT BASELINE. RT AWARE OF THE PT, STATED THE PT HAD DECLINED THE TREATMENT OFFERED WHEN THEY ATTEMPTED EARLIER. FIRST LEVELER NOTIFIED DR RANGEL NOTIFIED THEY ARE AWARE THE PT WANTS TO LEAVE AMA BUT IS PHYISCALLY UNABLE, DT BECOMING SOB WITH EXERTION.
--- NOTE | 2021-12-15 11:30 | NUR ---
PT ATTEMPTED TO LEAVE AMA- PT WAS YELLING AND CURSING AT STAFF, STILL REFUSING ALL ASSISTANCE, WHEN THIS RN ATTEMPTED TO ASSIST THE PT WITH HER O2 SHE SLAPPED IT OUT OF HER HANDS. PT THEN WALKED OFF MEDICAL UNIT ON HER OWN. WHEEZING AND BREATHING HARD PRIOR TO THE ELEVATOR. DR RANGEL AND MANUFACTURING LABORER KARLA WENT AFTER HER TO FURTHER ATTEMPT TO GET HER TO STAY. PT REFUSED TO ALLOW STAFF TO CALL HER DAUGHTER, PT REFUSED TO WAIT FOR A HOME O2 EVAL SO O2 COULD BE PROVIDED FOR HER TO LEAVE WITH. PT BECAME TOO WEAK BEFORE LEAVING THE HOSPITAL AND WAS ASSITED TO A WC BY PALLIATIVE CARE RN GUILLERMO WHO RETURNED HER TO HER ROOM. AGAIN CALLED FOR BREATHING Tx ORDERED XANAX FOR THE PT TO HELP CALM HER AND RELAX HER BREATHING. PT WAS WILLING TO TAKE THE MEDICATIONS AGAIN. SBP 105 PRIOR TO MEDICATING IS AWARE. PT C/O CHEST PAIN, TELE DC'D PT WAS REFUSING TO HAVE IT. [facility] CONSULT IS IN. ASSISTANT TRACK COACH NOTIFIED OF THE ISSUE SHE CALLED DR KENNEDY AND HE WILL BE COMING TO SEE THE PT SHORTLY. PLANS TO MOVE THE PT TO THE BACK PENA IF NEEDED AFTER DR KENNEDY SEES HER.
--- NOTE | 2021-12-15 17:52 | NUR ---
SHIFT SUMMARY- PT ALERT AND ORIENTED UP IN THE CHAIR FOR DINNER TONIGHT. PT STATED HE WAS NOT VERY HUNGRY HOWEVER BG WAS 78 PRIOR TO DINNER. PT ENCOURAGED TO WAKE UP AND EAT AT LEAST A LITTLE DINNER. ALL INSULIN HELD TO PREVENT HYPOGLYCEMIA. PT SITTING UP IN A CHAIR EATING DINNER, CHAIR ALARM SET THE PT IS A HIGH FALL RISK, CALL LIGHT IN REACH NO S&S OF DISTRESS NOTED AT THIS TIME WILL CTM AND PASS ON TO NIGHT RN IN BEDSIDE REPORT. PLAN IS FOR DC TO [facility] FOR SNF.
--- NOTE | 2021-12-16 05:52 | NUR ---
SHIFT SUMMARY: A/O X4, REPOSITIONS SELF IN BED. RESPIRATORY PATIENT SEEMS TO BE IMPROVING, SIGNIFICANTLY DECREASED COUGH- LUNG SOUNDS DIMINISHED- WHEEZE AND RHONCHI RESOLVED. PT DECLINED ACETAMINOPHEN FOR NECK DISCOMFORT, REPORTED STIFFNESS YET TOLERABLE. CPAP WORN THROUGHOUT THE NIGHT, VITALS STABLE.
[2021-12-16 06:17] LABS: BASOPHILS ABSOLUTE AUTO 0.03 K/mm3 (0.00-0.23); BASOPHILS PERCENT AUTO 0 % (0-2); EOSINOPHILS ABSOLUTE AUTO 0.27 K/mm3 (0.00-0.68); EOSINOPHILS PERCENT AUTO 4 % (0-6); Hematocrit 27.2 % (37.0-53.0); Hemoglobin 8.4 g/dL (13.5-17.5); IMMATURE GRAN ABSOLUTE AUTO 0.05 K/mm3 (0.00-0.10); IMMATURE GRAN PERCENT AUTO 1 % (0-1); LYMPHOCYTES ABSOLUTE AUTO 1.12 K/mm3 (0.84-5.20); LYMPHOCYTES PERCENT AUTO 15 % (21-46); MONOCYTES ABSOLUTE AUTO 0.86 K/mm3 (0.16-1.47); MONOCYTES PERCENT AUTO 12 % (4-13); Mean Corpuscular HGB 30.7 pg (26.0-34.0); Mean Corpuscular HGB Conc 30.9 g/dL (31.5-36.5); Mean Corpuscular Volume 99 fL (80-100); Mean Platelet Volume 10.1 fL (9.1-12.4); NEUTROPHILS ABSOLUTE AUTO 5.02 K/mm3 (1.96-9.15); NEUTROPHILS PERCENT AUTO 68 % (41-73); Platelet Count 260 K/mm3 (150-400); RDW Coefficient Variation 19.4 % (11.7-14.2); RDW Standard Deviation 68.5 fL (35.1-46.3); Red Blood Cell Count 2.74 M/mm3 (4.30-5.90); White Blood Cell Count 7.35 K/mm3 (4.00-11.30)
[2021-12-16 06:23] LABS: Albumin, Blood 2.2 g/dL (3.4-5.0); Anion Gap 5 mmol/L (6-16); Blood Urea Nitrogen 30 mg/dL (8-24); Bun/Creatinine Ratio 21.4 (12.0-20.0); CO2, Blood 26 mmol/L (21-32); Calcium, Blood 8.6 mg/dL (8.5-10.1); Chloride, Blood 111 mmol/L (98-108); Glomerular Filtration Rate 51 (60-); Glucose, Blood 120 mg/dL (70-99); Phosphorus, Blood 2.4 mg/dL (2.5-4.9); Potassium, Blood 4.2 mmol/L (3.5-5.5); Sodium, Blood 142 mmol/L (136-145)
--- NOTE | 2021-12-16 13:29 | NUR ---
CALLED DR REN- RESULTS IN FOR PT DVT STUDY. DR PADILLA PLAN IS FOR PT TO DC TO [facility]. DISCHARGE ORDERS SHOULD BE IN SHORTLY. SPOKE WITH CARE MANAGEMENT THEY ARE AWARE.
[2021-12-16] MEDS ORDERED: MIRT15ST PO (15:38)
[2021-12-16] MEDS ORDERED: METO25ER PO (15:38)
[2021-12-16] MEDS ORDERED: CARV25 PO (15:40)
--- NOTE | 2021-12-16 16:35 | NUR ---
DISCHARGE NOTE- PT ALERT AND ORIENTED AND 1PA FOR TRANSFERS. DISCHARGED TO [facility] FOR SNF. PT TO BE TAKEN VIA WC TRANSPORT AT 1630, AWAITING TRANSPORT COMPANY ARRIVAL, IV DC'D.. VERBAL REPORT COMPLETED WITH ELIZABETH RN, NO S&S OF DISTRESS AT THE TIME OF DISCHARGE.
== END 2021-12-16 16:51 | DRG 682 ==
LOC: ER 05:41 → ERHOLD 05:42 → ER 05:42 → PCU 15:42 → ERHOLD 15:42 → PCU 15:42 → MEDS 12-08 00:58 → PCU 12-08 00:58 → MEDS 12-08 00:59 → PCU 12-08 16:27 → MEDS 12-08 16:27
PROVIDERS: Family Medicine; Nurse Practitioner Acute Care; Student in an Organized Health Care Education/Training Program; ADMIT Internal Medicine
PROC: 30233N1 Transfusion of Nonautologous Red Blood Cells into Peripheral Vein, Percutaneous Approach (ICD-10-PCS; principal; 2021-12-08)
PROC: 8E0ZXY6 Isolation (ICD-10-PCS; 2021-12-08)
DX: N17.9 Acute kidney failure, unspecified (principal); U07.1 COVID-19; I50.22 Chronic systolic (congestive) heart failure; I13.0 Hypertensive heart and chronic kidney disease with heart failure and stage 1 through stage 4 chronic kidney disease, or unspecified chronic kidney disease; D62 Acute posthemorrhagic anemia; I48.91 Unspecified atrial fibrillation; R29.6 Repeated falls; I25.10 Atherosclerotic heart disease of native coronary artery without angina pectoris; N18.30 Chronic kidney disease, stage 3 unspecified; E11.22 Type 2 diabetes mellitus with diabetic chronic kidney disease; G25.81 Restless legs syndrome; M45.9 Ankylosing spondylitis of unspecified sites in spine; E21.3 Hyperparathyroidism, unspecified; D63.1 Anemia in chronic kidney disease; F43.10 Post-traumatic stress disorder, unspecified; M19.90 Unspecified osteoarthritis, unspecified site; S70.01XA Contusion of right hip, initial encounter; E78.5 Hyperlipidemia, unspecified; Z95.1 Presence of aortocoronary bypass graft; Z90.49 Acquired absence of other specified parts of digestive tract; Z90.89 Acquired absence of other organs; Z98.890 Other specified postprocedural states; Z87.891 Personal history of nicotine dependence; Z88.6 Allergy status to analgesic agent; Z88.8 Allergy status to other drugs, medicaments and biological substances; Z79.4 Long term (current) use of insulin; Z79.01 Long term (current) use of anticoagulants; Z79.82 Long term (current) use of aspirin; Z79.899 Other long term (current) drug therapy; W06.XXXA Fall from bed, initial encounter
CPT/HCPCS: 36415; 36416; 51701; 70450; 71045; 71046; 72125; 73502; 80048; 80053; 80069; 80076; 81003; 82247; 82248; 82533; 82607; 82746; 82803; 82947; 83010; 83605; 83615; 83735; 83880; 84145; 84484; 85014; 85018; 85025; 85045; 85060; 86850; 86880; 86900; 86901; 86923; 93005; 93010; 93971; 94640; 94660; 94664; 94760; 94762; 96361; 96365; 96375; 96376; 97110; 97116; 97162; 97166; 97530; 97535; 99285-25; A9270; G0378; J1170; J1815; J3475; J7030; J7040; J7050; P9016

== ENCOUNTER 2021-12-21 11:27 | Emergency (ER) | payer MEDICARE, OTHER ==
[~2021-12-21] VITALS: Ht 170.2 cm; Wt 78.5 kg
[~2021-12-21 11:27] MED LIST changes: +METO25ER PO; +MIRT15ST PO
[2021-12-21 12:53] LABS: BASOPHILS ABSOLUTE AUTO 0.05 K/mm3 (0.00-0.23); BASOPHILS PERCENT AUTO 1 % (0-2); EOSINOPHILS ABSOLUTE AUTO 0.45 K/mm3 (0.00-0.68); EOSINOPHILS PERCENT AUTO 7 % (0-6); Hematocrit 29.6 % (37.0-53.0); Hemoglobin 9.2 g/dL (13.5-17.5); IMMATURE GRAN ABSOLUTE AUTO 0.03 K/mm3 (0.00-0.10); IMMATURE GRAN PERCENT AUTO 0 % (0-1); LYMPHOCYTES ABSOLUTE AUTO 1.26 K/mm3 (0.84-5.20); LYMPHOCYTES PERCENT AUTO 19 % (21-46); MONOCYTES ABSOLUTE AUTO 0.77 K/mm3 (0.16-1.47); MONOCYTES PERCENT AUTO 12 % (4-13); Mean Corpuscular HGB 30.2 pg (26.0-34.0); Mean Corpuscular HGB Conc 31.1 g/dL (31.5-36.5); Mean Corpuscular Volume 97 fL (80-100); Mean Platelet Volume 10.1 fL (9.1-12.4); NEUTROPHILS ABSOLUTE AUTO 4.14 K/mm3 (1.96-9.15); NEUTROPHILS PERCENT AUTO 62 % (41-73); Platelet Count 306 K/mm3 (150-400); RDW Coefficient Variation 17.9 % (11.7-14.2); RDW Standard Deviation 63.5 fL (35.1-46.3); Red Blood Cell Count 3.05 M/mm3 (4.30-5.90)
[2021-12-21 13:13] LABS: Albumin, Blood 2.7 g/dL (3.4-5.0); Albumin/Globulin Ratio 0.7 (0.8-1.8); Bilirubin, Total 1.3 mg/dL (0.1-1.0); Bun/Creatinine Ratio 20.8 (12.0-20.0); Creatinine, Blood 1.83 mg/dL (0.60-1.20); Globulin, Blood 4.1 g/dL (2.2-4.0); Potassium, Blood 4.5 mmol/L (3.5-5.5); Total Protein, Blood 6.8 g/dL (6.4-8.2)
== END 2021-12-21 14:05 | disposition home or self-care (01) ==
LOC: ER 11:27
PROVIDERS: Emergency Medicine
DX: R22.41 Localized swelling, mass and lump, right lower limb (principal); M79.10 Myalgia, unspecified site; I13.0 Hypertensive heart and chronic kidney disease with heart failure and stage 1 through stage 4 chronic kidney disease, or unspecified chronic kidney disease; I50.9 Heart failure, unspecified; N18.9 Chronic kidney disease, unspecified; E11.22 Type 2 diabetes mellitus with diabetic chronic kidney disease; J44.9 Chronic obstructive pulmonary disease, unspecified; I25.10 Atherosclerotic heart disease of native coronary artery without angina pectoris; I48.91 Unspecified atrial fibrillation; E78.5 Hyperlipidemia, unspecified; Z88.5 Allergy status to narcotic agent; Z88.8 Allergy status to other drugs, medicaments and biological substances; Z79.4 Long term (current) use of insulin; Z79.01 Long term (current) use of anticoagulants; Z79.899 Other long term (current) drug therapy
CPT/HCPCS: 36415; 80053; 83880; 85025; 93971

== ENCOUNTER 2022-02-28 08:14 | Emergency (ER) | payer MEDICARE, OTHER ==
[~2022-02-28] VITALS: Ht 170.2 cm; Wt 78.0 kg
[2022-02-28 09:02] LABS: BASOPHILS ABSOLUTE AUTO 0.07 K/mm3 (0.00-0.23); BASOPHILS PERCENT AUTO 1 % (0-2); EOSINOPHILS ABSOLUTE AUTO 0.22 K/mm3 (0.00-0.68); EOSINOPHILS PERCENT AUTO 2 % (0-6); Hematocrit 35.9 % (37.0-53.0); Hemoglobin 11.9 g/dL (13.5-17.5); IMMATURE GRAN ABSOLUTE AUTO 0.04 K/mm3 (0.00-0.10); IMMATURE GRAN PERCENT AUTO 0 % (0-1); LYMPHOCYTES ABSOLUTE AUTO 1.74 K/mm3 (0.84-5.20); LYMPHOCYTES PERCENT AUTO 15 % (21-46); MONOCYTES PERCENT AUTO 11 % (4-13); Mean Corpuscular HGB 28.4 pg (26.0-34.0); Mean Corpuscular HGB Conc 33.1 g/dL (31.5-36.5); Mean Corpuscular Volume 86 fL (80-100); Mean Platelet Volume 10.8 fL (9.1-12.4); NEUTROPHILS ABSOLUTE AUTO 8.33 K/mm3 (1.96-9.15); NEUTROPHILS PERCENT AUTO 71 % (41-73); Platelet Count 224 K/mm3 (150-400); RDW Coefficient Variation 16.2 % (11.7-14.2); RDW Standard Deviation 50.6 fL (35.1-46.3); Red Blood Cell Count 4.19 M/mm3 (4.30-5.90)
[2022-02-28 09:26] LABS: Albumin, Blood 3.2 g/dL (3.4-5.0); Albumin/Globulin Ratio 0.9 (0.8-1.8); Bilirubin, Total 0.9 mg/dL (0.1-1.0); Bun/Creatinine Ratio 21.8 (12.0-20.0); Calcium, Blood 9.4 mg/dL (8.5-10.1); Creatinine, Blood 1.97 mg/dL (0.60-1.20); Globulin, Blood 3.6 g/dL (2.2-4.0); Potassium, Blood 4.3 mmol/L (3.5-5.5); Total Protein, Blood 6.8 g/dL (6.4-8.2)
[2022-03-01] MEDS ORDERED: IPRAT-ALBUT 0.5-3 ML INH (12:20)
[2022-03-01] MEDS ORDERED: TRAM50 PO (12:20)
[2022-03-01] MEDS ORDERED: CALCIUM 600 MG1 EA19 PO (12:21)
[2022-03-01] MEDS ORDERED: KRILL OIL 5001 EACH PO (12:22)
[2022-03-01] MEDS ORDERED: PRAM.125 PO (12:22)
[2022-03-01] MEDS ORDERED: ATOR40TA PO (12:22)
[2022-03-01] MEDS ORDERED: FLUO10 PO (12:23)
[2022-03-01] MEDS ORDERED: SPIR25 PO (12:23)
[2022-03-01] MEDS ORDERED: Isosorbide Mono30 MG PO (12:25)
[2022-03-01] MEDS ORDERED: GABA300 PO (12:25)
[2022-03-01] MEDS ORDERED: LOSA25 PO (12:26)
[2022-03-01] MEDS ORDERED: CARV6.25 PO (12:26)
[2022-03-01] MEDS ORDERED: LORA10ER PO (12:27)
[2022-03-01] MEDS ORDERED: CALC.25 PO (12:27)
[2022-03-01] MEDS ORDERED: MONT10T PO (12:28)
[2022-03-01] MEDS ORDERED: TOCO1000 PO (12:28)
[2022-03-01] MEDS ORDERED: PANT40 PO (12:28)
[2022-03-01] MEDS ORDERED: POTA10T PO (12:29)
[2022-03-01] MEDS ORDERED: XARELTO20 MG PO (12:30)
[2022-03-01] MEDS ORDERED: FURO40 PO (12:30)
[2022-03-01] MEDS ORDERED: NOVOLOG FL100 UNIT/3 (12:31)
[2022-03-01] MEDS ORDERED: INSULANI SC (12:33)
[2022-03-01] MEDS ORDERED: HUMALOG KW100 UNIT/1 (12:34)
== END 2022-02-28 11:55 | disposition home or self-care (01) ==
LOC: ER 08:14
PROVIDERS: Emergency Medicine
DX: R06.02 Shortness of breath (principal); Z53.21 Procedure and treatment not carried out due to patient leaving prior to being seen by health care provider
CPT/HCPCS: 36415; 71045; 80053; 83880; 84484; 85025; 93005; 93010; A9270

== ENCOUNTER 2022-03-16 09:20 | Emergency (ER) | payer MEDICARE, OTHER ==
[~2022-03-16] VITALS: Ht 170.2 cm; Wt 78.0 kg
[~2022-03-16 09:20] MED LIST changes: +AMOX-CLAV 875-1 EAC5 PO; +ASMANEX INH; +BASAGLAR K100 UNIT/3 SC; +BENZONATATE100 MG PO; +CALCIUM 600 MG1 EA19 PO; +CARVEDILOL PO; +ELIQUIS2.5 MG PO; +GABA100 PO; +GABA600 PO; +GLUCOSE4 GM PO; +IPRAT-ALBUT 0.5-3 ML INH; +KRILL OIL 5001 EACH PO; +LORA10ER PO; +METFORMIN HCL500 M2 PO; +NITROGLYCERIN0.4 M3 SL; +NOVOLOG FL100 UNIT/3; +PANT20 PO; +STIOLTO RESPIMAT4 G1 INH; +TOCO1000 PO
[2022-03-16 10:01] LABS: BASOPHILS ABSOLUTE AUTO 0.08 K/mm3 (0.00-0.23); BASOPHILS PERCENT AUTO 1 % (0-2); EOSINOPHILS ABSOLUTE AUTO 0.39 K/mm3 (0.00-0.68); EOSINOPHILS PERCENT AUTO 4 % (0-6); Hemoglobin 12.3 g/dL (13.5-17.5); IMMATURE GRAN ABSOLUTE AUTO 0.04 K/mm3 (0.00-0.10); IMMATURE GRAN PERCENT AUTO 0 % (0-1); LYMPHOCYTES ABSOLUTE AUTO 1.13 K/mm3 (0.84-5.20); LYMPHOCYTES PERCENT AUTO 13 % (21-46); MONOCYTES ABSOLUTE AUTO 0.81 K/mm3 (0.16-1.47); MONOCYTES PERCENT AUTO 9 % (4-13); Mean Corpuscular HGB 27.2 pg (26.0-34.0); Mean Corpuscular HGB Conc 31.5 g/dL (31.5-36.5); Mean Corpuscular Volume 86 fL (80-100); Mean Platelet Volume 10.3 fL (9.1-12.4); NEUTROPHILS ABSOLUTE AUTO 6.47 K/mm3 (1.96-9.15); NEUTROPHILS PERCENT AUTO 73 % (41-73); Platelet Count 303 K/mm3 (150-400); RDW Coefficient Variation 15.9 % (11.7-14.2); RDW Standard Deviation 49.9 fL (35.1-46.3); Red Blood Cell Count 4.53 M/mm3 (4.30-5.90); White Blood Cell Count 8.92 K/mm3 (4.00-11.30)
[2022-03-16 10:15] LABS: Albumin, Blood 3.2 g/dL (3.4-5.0); Albumin/Globulin Ratio 0.9 (0.8-1.8); Bilirubin, Total 0.5 mg/dL (0.1-1.0); Bun/Creatinine Ratio 23.9 (12.0-20.0); Calcium, Blood 8.9 mg/dL (8.5-10.1); Creatinine, Blood 1.63 mg/dL (0.60-1.20); Globulin, Blood 3.6 g/dL (2.2-4.0); Potassium, Blood 4.6 mmol/L (3.5-5.5); Total Protein, Blood 6.8 g/dL (6.4-8.2)
== END 2022-03-16 17:12 | disposition home or self-care (01) ==
LOC: ER 09:20
PROVIDERS: Physician Assistant
DX: I11.0 Hypertensive heart disease with heart failure (principal); I50.22 Chronic systolic (congestive) heart failure; J44.9 Chronic obstructive pulmonary disease, unspecified; I48.91 Unspecified atrial fibrillation; I25.10 Atherosclerotic heart disease of native coronary artery without angina pectoris; E11.9 Type 2 diabetes mellitus without complications; Z87.891 Personal history of nicotine dependence; Z88.8 Allergy status to other drugs, medicaments and biological substances; Z79.899 Other long term (current) drug therapy; Z79.4 Long term (current) use of insulin
CPT/HCPCS: 36415; 71046; 80053; 83880; 84484; 85025; 93005; 93010; 96374; 99284-25; J1940

== ENCOUNTER 2022-05-18 20:46 | Emergency (ER) | payer MEDICARE, OTHER ==
[~2022-05-18] VITALS: Ht 170.2 cm; Wt 78.0 kg
[2022-05-18 21:04] LABS: BASOPHILS ABSOLUTE AUTO 0.12 K/mm3 (0.00-0.23); BASOPHILS PERCENT AUTO 1 % (0-2); EOSINOPHILS ABSOLUTE AUTO 0.82 K/mm3 (0.00-0.68); EOSINOPHILS PERCENT AUTO 7 % (0-6); Hematocrit 39.8 % (37.0-53.0); Hemoglobin 13.2 g/dL (13.5-17.5); IMMATURE GRAN ABSOLUTE AUTO 0.05 K/mm3 (0.00-0.10); IMMATURE GRAN PERCENT AUTO 0 % (0-1); LYMPHOCYTES ABSOLUTE AUTO 2.97 K/mm3 (0.84-5.20); LYMPHOCYTES PERCENT AUTO 25 % (21-46); MONOCYTES ABSOLUTE AUTO 1.13 K/mm3 (0.16-1.47); MONOCYTES PERCENT AUTO 10 % (4-13); Mean Corpuscular HGB 28.6 pg (26.0-34.0); Mean Corpuscular HGB Conc 33.2 g/dL (31.5-36.5); Mean Corpuscular Volume 86 fL (80-100); Mean Platelet Volume 10.8 fL (9.1-12.4); NEUTROPHILS ABSOLUTE AUTO 6.68 K/mm3 (1.96-9.15); NEUTROPHILS PERCENT AUTO 57 % (41-73); Platelet Count 279 K/mm3 (150-400); RDW Coefficient Variation 15.2 % (11.7-14.2); RDW Standard Deviation 47.8 fL (35.1-46.3); Red Blood Cell Count 4.61 M/mm3 (4.30-5.90); White Blood Cell Count 11.77 K/mm3 (4.00-11.30)
[2022-05-18 21:22] LABS: Albumin, Blood 3.6 g/dL (3.4-5.0); Albumin/Globulin Ratio 0.9 (0.8-1.8); Bilirubin, Total 0.5 mg/dL (0.1-1.0); Bun/Creatinine Ratio 23.1 (12.0-20.0); Calcium, Blood 9.2 mg/dL (8.5-10.1); Creatinine, Blood 1.99 mg/dL (0.60-1.20); Potassium, Blood 4.6 mmol/L (3.5-5.5); Total Protein, Blood 7.6 g/dL (6.4-8.2)
== END 2022-05-19 01:15 | disposition home or self-care (01) ==
LOC: ER 20:46
PROVIDERS: Student in an Organized Health Care Education/Training Program
DX: J44.1 Chronic obstructive pulmonary disease with (acute) exacerbation (principal); I11.0 Hypertensive heart disease with heart failure; I50.22 Chronic systolic (congestive) heart failure; I25.10 Atherosclerotic heart disease of native coronary artery without angina pectoris; I48.91 Unspecified atrial fibrillation; E78.5 Hyperlipidemia, unspecified; E11.9 Type 2 diabetes mellitus without complications; Z88.5 Allergy status to narcotic agent; Z88.8 Allergy status to other drugs, medicaments and biological substances; Z79.899 Other long term (current) drug therapy; Z79.4 Long term (current) use of insulin; Z79.01 Long term (current) use of anticoagulants; Z87.891 Personal history of nicotine dependence
CPT/HCPCS: 71045; 80053; 83880; 84484; 85025; 93005; 93010; 94640; 94644; 94645; 94664; J1940; J2930

== ENCOUNTER 2022-09-24 15:24 | Inpatient (IN) | payer MEDICARE, OTHER ==
[~2022-09-24] VITALS: Ht 165.1 cm; Wt 82.0 kg
[~2022-09-24 15:24] MED LIST changes: -ATORVASTATIN CA80 M1 PO; -DULERA INH; -ELIQUIS2.5 M1 PO; -FLUOXETINE PO; -FURO80 PO; -Insulin Glargine-Yfg SC; -LOSARTAN POTAS100 M1 PO; -MIRAPEX0.125 MG PO; -Ventolin/Proventil INH
--- NOTE | 2022-09-24 15:42 | NUR ---
ARRIVAL PATIENT ARRIVED TO UNIT VIA W/C. SBA TO BED. PATIENT REPORTS USING 3L O2 AT BASELINE, VIA NC, REPORTS USING CPAP WHILE SLEEPING, W/ 3L BLEED IN. PATIENT REFUSED GOWN AT THIS TIME, PREFERS TO WEAR PERSONAL CLOTHES. ORIENTED TO ROOM & CALL LIGHT. BELONGINGS SENT HOME WITH FAMILY.
[2022-09-24 15:46] VITALS: BP 114/70
[2022-09-24] MEDS ORDERED: Insulin Glargine-Yfg SC (16:10)
[2022-09-24] MEDS ORDERED: Ventolin/Proventil INH (16:11)
[2022-09-24] MEDS ORDERED: ELIQUIS2.5 M1 PO (16:12)
[2022-09-24] MEDS ORDERED: ATORVASTATIN CA80 M1 PO (16:13)
[2022-09-24] MEDS ORDERED: FLUOXETINE PO (16:15)
[2022-09-24] MEDS ORDERED: FURO80 PO (16:16)
[2022-09-24] MEDS ORDERED: GABA100 PO (16:17)
[2022-09-24] MEDS ORDERED: LOSARTAN POTAS100 M1 PO (16:18)
[2022-09-24] MEDS ORDERED: METO25ER PO (16:19)
[2022-09-24] MEDS ORDERED: DULERA INH (16:20)
[2022-09-24] MEDS ORDERED: MONT10T PO (16:21)
[2022-09-24] MEDS ORDERED: PANT20 PO (16:22)
[2022-09-24] MEDS ORDERED: MIRAPEX0.125 MG PO (16:23)
[2022-09-24 16:28] LABS: BASOPHILS ABSOLUTE AUTO 0.07 K/mm3 (0.00-0.23); BASOPHILS PERCENT AUTO 1 % (0-2); EOSINOPHILS ABSOLUTE AUTO 0.31 K/mm3 (0.00-0.68); EOSINOPHILS PERCENT AUTO 3 % (0-6); Hematocrit 30.7 % (37.0-53.0); Hemoglobin 10.1 g/dL (13.5-17.5); IMMATURE GRAN ABSOLUTE AUTO 0.22 K/mm3 (0.00-0.10); IMMATURE GRAN PERCENT AUTO 2 % (0-1); LYMPHOCYTES ABSOLUTE AUTO 1.42 K/mm3 (0.84-5.20); LYMPHOCYTES PERCENT AUTO 15 % (21-46); MONOCYTES ABSOLUTE AUTO 1.12 K/mm3 (0.16-1.47); MONOCYTES PERCENT AUTO 12 % (4-13); Mean Corpuscular HGB 29.4 pg (26.0-34.0); Mean Corpuscular HGB Conc 32.9 g/dL (31.5-36.5); Mean Corpuscular Volume 89 fL (80-100); Mean Platelet Volume 10.3 fL (9.1-12.4); NEUTROPHILS ABSOLUTE AUTO 6.58 K/mm3 (1.96-9.15); NEUTROPHILS PERCENT AUTO 68 % (41-73); NRBC ABSOLUTE 0.02 K/mm3 (0.00-0.02); NRBC Auto 0.2 /100 WBC (0.0-0.2); Platelet Count 334 K/mm3 (150-400); RDW Standard Deviation 48.3 fL (35.1-46.3); Red Blood Cell Count 3.44 M/mm3 (4.30-5.90); White Blood Cell Count 9.72 K/mm3 (4.00-11.30)
[2022-09-24 16:37] LABS: Source, Urine Clean Catch
[2022-09-24 16:46] LABS: Appearance, Urine Clear (Clear); Bilirubin, Urine Neg (Neg); Blood, Urine Neg (Neg); Color, Urine Yellow (P-Yellow); Glucose Qualitative, Urine Neg (Neg); Ketones, Urine Neg (Neg); Leukocyte Esterase, Urine 2+ (Neg); Nitrite, Urine Neg (Neg); Protein, Urine 2+ (Neg); Specific Gravity, Urine 1.015 (1.003-1.022); Urobilinogen, Urine NORM (Normal)
[2022-09-24 16:47] LABS: Albumin, Blood 2.8 g/dL (3.4-5.0); Albumin/Globulin Ratio 0.8 (0.8-1.8); Bilirubin, Total 0.7 mg/dL (0.1-1.0); Bun/Creatinine Ratio 17.9 (12.0-20.0); Calcium, Blood 8.5 mg/dL (8.5-10.1); Creatinine, Blood 3.12 mg/dL (0.60-1.20); Globulin, Blood 3.3 g/dL (2.2-4.0); Potassium, Blood 4.6 mmol/L (3.5-5.5); Total Protein, Blood 6.1 g/dL (6.4-8.2)
[2022-09-24 17:18] LABS: Bacteria Mod /hpf; Squamous Epithelial Cells Few /hpf (Few)
[2022-09-24 17:19] LABS: Hyaline Casts 0-2 /lpf (0-2)
--- NOTE | 2022-09-24 18:13 | NUR ---
SHIFT SUMMARY NO ACUTE CHANGES SINCE ARRIVAL TO UNIT. ORTHOSTATIC BP'S DONE PER ODERS. SCD'S IN PLACE. URINAL AT BEDSIDE. CPAP SET UP BY RT. CONT PULSE OX IN PLACE. USES CALL LIGHT APPROPRIATELY, IN REACH. WILL REPORT TO ONCOMING RN AT 1900.
--- NOTE | 2022-09-24 18:16 | NUR ---
"Spiritual Care |Pt. request. Pt. is sitting up on the side of his bed and is eating dinner. Pt. is pleasant but unsettled about why he keeps losing his balance at home. Pt. verbalizes that he has fallen on several occassions. Listen with empathy and a calming presence. Facilitate a life review and establish rapport. Prayed with Pt. Pt. verbalized gratitude for [facility] spiritual care visit and welcomes this hotel desk clerk to return."
--- NOTE | 2022-09-25 03:59 | NUR ---
SHIFT SUMMARY 81 YR M ADMITTED ON 09/24/22 FOR ACUTE ON CHRONIC KIDNEY INJURY. FULL CODE. NO ACUTE CHANGES THIS SHIFT. PT IS RESTING COMFORTABLY WITH CPAP IN PLACE. PER LAB REPORTS HIS TROPONIN LEVELS ARE TRENDING DOWN, HAVING GONE FROM 159 TO 149 TO 132. PT IS A&O X 4 AND IS PLEASANT AND COOPERATIVE WITH CARE. NO C/O PAIN OR DISCOMFORT THIS SHIFT.
[2022-09-25 07:46] VITALS: BP 108/62
[2022-09-25 08:58] LABS: BASOPHILS ABSOLUTE AUTO 0.06 K/mm3 (0.00-0.23); BASOPHILS PERCENT AUTO 1 % (0-2); EOSINOPHILS ABSOLUTE AUTO 0.44 K/mm3 (0.00-0.68); EOSINOPHILS PERCENT AUTO 4 % (0-6); Hematocrit 31.6 % (37.0-53.0); Hemoglobin 10.4 g/dL (13.5-17.5); IMMATURE GRAN ABSOLUTE AUTO 0.21 K/mm3 (0.00-0.10); IMMATURE GRAN PERCENT AUTO 2 % (0-1); LYMPHOCYTES PERCENT AUTO 10 % (21-46); MONOCYTES ABSOLUTE AUTO 1.39 K/mm3 (0.16-1.47); MONOCYTES PERCENT AUTO 12 % (4-13); Mean Corpuscular HGB 29.3 pg (26.0-34.0); Mean Corpuscular HGB Conc 32.9 g/dL (31.5-36.5); Mean Corpuscular Volume 89 fL (80-100); Mean Platelet Volume 10.2 fL (9.1-12.4); NEUTROPHILS ABSOLUTE AUTO 8.69 K/mm3 (1.96-9.15); NEUTROPHILS PERCENT AUTO 72 % (41-73); NRBC ABSOLUTE 0.03 K/mm3 (0.00-0.02); NRBC Auto 0.3 /100 WBC (0.0-0.2); Platelet Count 347 K/mm3 (150-400); RDW Coefficient Variation 15.1 % (11.7-14.2); RDW Standard Deviation 48.3 fL (35.1-46.3); Red Blood Cell Count 3.55 M/mm3 (4.30-5.90); White Blood Cell Count 11.99 K/mm3 (4.00-11.30)
[2022-09-25 09:25] LABS: Albumin/Globulin Ratio 0.8 (0.8-1.8); Bilirubin, Total 0.7 mg/dL (0.1-1.0); Bun/Creatinine Ratio 19.7 (12.0-20.0); Calcium, Blood 9.1 mg/dL (8.5-10.1); Creatinine, Blood 2.9 mg/dL (0.60-1.20); Globulin, Blood 3.8 g/dL (2.2-4.0); Potassium, Blood 4.5 mmol/L (3.5-5.5); Total Protein, Blood 6.8 g/dL (6.4-8.2)
--- NOTE | 2022-09-25 15:45 | NUR ---
SHIFT SUMMARY: PATIENT A&OX4 c SLIGHT FORGETFULL. CALM, PLEASANT AND COOPERATIVE c CARE. USES CALL LIGHT APPROPRIATELY AND ABLE TO MAKE NEEDS KNOWN. PATIENT DENIES CP/PRESSURE, N/V. ON TELE, SR HR AT 84 BPM c BBB AND PVC, PER CLOTH CARRIER NYDIA FRENCH. PATIENT DENIES SOB WHEN RESTING IN BED BUT SOB c AMBULATIONS. PATIENT O2 AT BASELINE 3L VIA NC c SPO2 RANGES 92-95% T/O SHIFT. LUNGS CLEAR/DIM T/O TO AUSCULTATION. TRACES OF EDEMA TO BLE. RECEIVED SCHEDULED MEDS PER EMAR. PATIENT WORK c PT MOBILITY TODAY. PER PT PATIENT AT BASELINE, D/C HOME PRIOR TO LIVING SITUATIONS c NO FURTHER FOLLOW UP TX. PATIENT SITTING UP IN CHAIR FOR BREAKFAST AND LUNCH. CONTINENT OF URINE AND STOOL. AMBULATES TO BATHROOM AND BACK IN BED c SBA & FWW. PATIENT HAD 1 LARGE FORMED BROWN BM THIS SHIFT. PATIENT ON FR OF 1500; TOTAL URINE OUTPUT AT THIS TIME 675 MLS AND 1 UNMEASURED VOID. VITAL SIGNS REVIEWED. IV TO LAC SALINE LOCKED. BED ALARM ON FOR SAFETY. CALL LIGHT IN REACH.
[2022-09-25 17:29] VITALS: BP 125/77
[2022-09-25 21:19] VITALS: BP 127/62
[2022-09-26 02:34] VITALS: BP 142/75
--- NOTE | 2022-09-26 04:13 | NUR ---
SHIFT SUMMARY PATIENT HAD NO ACUTE CHANGES. AXOX 3-4 FORGETFUL AT TIMES. DENIES CHEST PAIN AND N/V. SOB W/EXERTION. ON 3L O2 NC AND USED CPAP FOR A FEW HOURS WITH 3L BLEED IN SETUP BY RT. ON CONTINUOUS PULSE OXIMETRY STATING 92-95%. VSS/AFEBRILE. FLUID RESTRICTIONS 1,500 mL. PIV REMAINS INTACT. TELE MONITOR NSR BBB @ 87 W/PVC. USES URINAL AT BEDSIDE. CALL LIGHT IN REACH. BED IN LOWEST POSITION. WILL CONTINUE TO MONITOR UNTIL DAY SHIFT NURSE ASSUMES CARE.
[2022-09-26 04:37] LABS: BASOPHILS ABSOLUTE AUTO 0.04 K/mm3 (0.00-0.23); BASOPHILS PERCENT AUTO 0 % (0-2); EOSINOPHILS ABSOLUTE AUTO 0.24 K/mm3 (0.00-0.68); EOSINOPHILS PERCENT AUTO 2 % (0-6); Hematocrit 31.4 % (37.0-53.0); Hemoglobin 10.6 g/dL (13.5-17.5); IMMATURE GRAN ABSOLUTE AUTO 0.16 K/mm3 (0.00-0.10); IMMATURE GRAN PERCENT AUTO 1 % (0-1); LYMPHOCYTES ABSOLUTE AUTO 1.03 K/mm3 (0.84-5.20); LYMPHOCYTES PERCENT AUTO 8 % (21-46); MONOCYTES PERCENT AUTO 10 % (4-13); Mean Corpuscular HGB 29.8 pg (26.0-34.0); Mean Corpuscular HGB Conc 33.8 g/dL (31.5-36.5); Mean Corpuscular Volume 88 fL (80-100); Mean Platelet Volume 9.9 fL (9.1-12.4); NEUTROPHILS ABSOLUTE AUTO 9.84 K/mm3 (1.96-9.15); NEUTROPHILS PERCENT AUTO 79 % (41-73); Platelet Count 356 K/mm3 (150-400); RDW Coefficient Variation 14.7 % (11.7-14.2); RDW Standard Deviation 47.5 fL (35.1-46.3); Red Blood Cell Count 3.56 M/mm3 (4.30-5.90); White Blood Cell Count 12.51 K/mm3 (4.00-11.30)
[2022-09-26 04:54] LABS: Bun/Creatinine Ratio 23.4 (12.0-20.0); Calcium, Blood 9.4 mg/dL (8.5-10.1); Creatinine, Blood 2.44 mg/dL (0.60-1.20); Potassium, Blood 4.8 mmol/L (3.5-5.5)
[2022-09-26 07:18] VITALS: BP 137/68
[2022-09-26 16:04] VITALS: BP 138/71
--- NOTE | 2022-09-26 16:27 | NUR ---
PT AOX4 AND COOPERATIVE OF CARE. PT WAS STATING THIS AM HE WAS FEELING CHEST PAIN. PT WAS ALSO SOB. RT WAS CALLED AND GAVE BREATHING TREATMENT PER EMAR. DR FERRARI WAS ALSO NOTIFIED AND ADDED SOME ORDERS TO EMAR. PT SEEMED TO IMPROVE AFTER GETTING UP FOR SHOWER AND MOVING AROUND. PT IS ALSO BEING ENCOURAGED TO USE INSENTIVE SPIROMETER PER DR FERRARI'S ORDER.CALL LIGHT WITHIN REACH WILL CONTINUE TO MONITOR.
[2022-09-26 19:17] VITALS: BP 122/77
[2022-09-27 02:26] VITALS: BP 136/73
--- NOTE | 2022-09-27 04:24 | NUR ---
SHIFT SUMMARY PATIENT HAD NO ACUTE CHANGES. AXOX 3 FORGETFUL AT TIMES LOST FOR WORDS WHEN SPEAKING. SBA USING URINAL AT BEDSIDE. USED CPAP AT START OF SHIFT WITH 3L O2 BLEED IN AND SWITCH TO 3L O2 NC LATER ON. CBG 188. PIV REMAINS INTACT. IV ABX INFUSED. RT IN FOR BREATHING TX. FLUID RESTRICTION 1,500 mL. TELE MONITOR NSR 2 85. LESS ANXIOUS THIS SHIFT. CALL LIGHT IN REACH. BED IN LOWEST POSITION. WILL CONTINUE TO MONITOR UNTIL DAY SHIFT NURSE ASSUMES CARE.
[2022-09-27 04:58] LABS: BASOPHILS ABSOLUTE AUTO 0.06 K/mm3 (0.00-0.23); BASOPHILS PERCENT AUTO 1 % (0-2); EOSINOPHILS ABSOLUTE AUTO 0.42 K/mm3 (0.00-0.68); EOSINOPHILS PERCENT AUTO 5 % (0-6); Hematocrit 30.3 % (37.0-53.0); Hemoglobin 10.2 g/dL (13.5-17.5); IMMATURE GRAN ABSOLUTE AUTO 0.07 K/mm3 (0.00-0.10); IMMATURE GRAN PERCENT AUTO 1 % (0-1); LYMPHOCYTES ABSOLUTE AUTO 1.03 K/mm3 (0.84-5.20); LYMPHOCYTES PERCENT AUTO 11 % (21-46); MONOCYTES ABSOLUTE AUTO 0.95 K/mm3 (0.16-1.47); MONOCYTES PERCENT AUTO 10 % (4-13); Mean Corpuscular HGB 29.4 pg (26.0-34.0); Mean Corpuscular HGB Conc 33.7 g/dL (31.5-36.5); Mean Corpuscular Volume 87 fL (80-100); Mean Platelet Volume 9.8 fL (9.1-12.4); NEUTROPHILS ABSOLUTE AUTO 6.63 K/mm3 (1.96-9.15); NEUTROPHILS PERCENT AUTO 72 % (41-73); Platelet Count 353 K/mm3 (150-400); RDW Coefficient Variation 14.7 % (11.7-14.2); RDW Standard Deviation 46.1 fL (35.1-46.3); Red Blood Cell Count 3.47 M/mm3 (4.30-5.90); White Blood Cell Count 9.16 K/mm3 (4.00-11.30)
[2022-09-27 05:36] LABS: Albumin, Blood 2.7 g/dL (3.4-5.0); Albumin/Globulin Ratio 0.7 (0.8-1.8); Bilirubin, Total 0.6 mg/dL (0.1-1.0); Bun/Creatinine Ratio 24.2 (12.0-20.0); Calcium, Blood 9.2 mg/dL (8.5-10.1); Creatinine, Blood 2.11 mg/dL (0.60-1.20); Globulin, Blood 3.7 g/dL (2.2-4.0); Potassium, Blood 4.2 mmol/L (3.5-5.5); Total Protein, Blood 6.4 g/dL (6.4-8.2)
[2022-09-27 07:56] VITALS: BP 136/77
[2022-09-27 17:06] VITALS: BP 135/93
--- NOTE | 2022-09-27 17:55 | NUR ---
PT AOX4 AND COOPERATIVE OF CARE. PT STANDBY TO RESTROOM WITH WALKER. PT USES URINAL AT BEDSIDED. 1 INCONTENT BM. PT DOING BETTER TODAY AND HAS NOT BEEN UNCOMFORTABLE HE WAS YESTERDAY. PT HAS CPAP FROM HOME AND HAS BEEN SLEEPING WELL. NO DISTRESS NOTED AND CALL LIGHT WITHIN REACH. WILL CONTINUE TO MONITOR.
[2022-09-27 19:13] VITALS: BP 134/69
[2022-09-28 04:17] VITALS: BP 139/76
--- NOTE | 2022-09-28 04:22 | NUR ---
SHIFT SUMMARY PATIENT HAD NO ACUTE CHANGES. AXOX 3-4 AND FORGETFUL AT TIMES. SBA W/FWW TO BSC. ON 3L O2 NC AND SOB W/EXERTION. USES HOME CPAP AT NIGHT. DENIES CHEST PAIN AND N/V. USES URINAL AT BEDSIDE. PATIENT LESS ANXIOUS USING HOME CPAP. PIV REMAINS INTACT. TELE MONITOR NSR, BBB, @ 75. CBG 262. SLEPT MOST OF SHIFT. CALL LIGHT IN REACH. BED IN LOWEST POSITION. WILL CONTINUE TO MONITOR UNTIL DAY SHIFT NURSE ASSUMES CARE.
[2022-09-28 08:06] VITALS: BP 133/79
[2022-09-28] MEDS ORDERED: AMOX875 PO (13:12)
--- NOTE | 2022-09-28 14:59 | NUR ---
DISCHARGE SUMMARY PATIENT IN NO APPARENT DISTRESS. PATIENT EDUCATION PACKET GIVEN TO PATIENT AND FAMILY AT BEDSIDE.ALL QUESTIONS ANSWERED. SIGNATURES OBTAINED. PATIENT LEFT VIA WHEELCHAIR WITH PORTABLE OXYGEN 2LPM, WITH SON AND .
--- NOTE | 2022-09-28 15:34 | NUR ---
THIS RAMP BOSS HAS READ AND AGREES WITH ALL ASSESSMENTS AND NOTES BY AMINATA NOGUERA.
== END 2022-09-28 14:39 | disposition home or self-care (01) | DRG 280 ==
LOC: MEDS 15:24
PROVIDERS: ADMIT Internal Medicine
DX: I13.0 Hypertensive heart and chronic kidney disease with heart failure and stage 1 through stage 4 chronic kidney disease, or unspecified chronic kidney disease (principal); I21.A1 Myocardial infarction type 2; I50.43 Acute on chronic combined systolic (congestive) and diastolic (congestive) heart failure; N17.9 Acute kidney failure, unspecified; J96.11 Chronic respiratory failure with hypoxia; N39.0 Urinary tract infection, site not specified; E11.22 Type 2 diabetes mellitus with diabetic chronic kidney disease; I25.10 Atherosclerotic heart disease of native coronary artery without angina pectoris; N18.30 Chronic kidney disease, stage 3 unspecified; J44.9 Chronic obstructive pulmonary disease, unspecified; I08.1 Rheumatic disorders of both mitral and tricuspid valves; I48.0 Paroxysmal atrial fibrillation; B95.2 Enterococcus as the cause of diseases classified elsewhere; W19.XXXA Unspecified fall, initial encounter; E78.5 Hyperlipidemia, unspecified; Z90.49 Acquired absence of other specified parts of digestive tract; Z98.890 Other specified postprocedural states; Z79.01 Long term (current) use of anticoagulants; Z95.1 Presence of aortocoronary bypass graft
CPT/HCPCS: 36415; 71046; 76770; 80048; 80053; 81001; 82570; 82947; 84145; 84300; 84484; 84540; 85025; 87077; 87086; 87186; 93005; 93010; 94640; 94660; 94664; 94762; 96374; 96375; 96376; 97110; 97116; 97162; 97165; 97530; A9270; C9113; G0378; J0696; J1815; J1940

== ENCOUNTER → 2022-09-24 | Outpatient (CLI) | payer MEDICARE, OTHER ==
[~2022-09-24] MED LIST changes: +ALBU2.5V5; +ALDACTONE25 MG PO; +ATORVASTATIN CA80 M1 PO; +Acerola C500 MG PO; +DULERA INH; +ELIQUIS2.5 M1 PO; +FLUOXETINE PO; +FURO80 PO; +Insulin Glargine-Yfg SC; +LACT; +LIDO700A20 TOP; +LOPE2C PO; +LOSARTAN POTAS100 M1 PO; +MIRAPEX0.125 MG PO; +ONDA4ODT MM; +POTCHL20ER PO; +Ventolin/Proventil INH
[2022-09-24 13:22] LABS: BASOPHILS ABSOLUTE AUTO 0.07 K/mm3 (0.00-0.23); BASOPHILS PERCENT AUTO 1 % (0-2); EOSINOPHILS ABSOLUTE AUTO 0.27 K/mm3 (0.00-0.68); EOSINOPHILS PERCENT AUTO 3 % (0-6); Hematocrit 30.8 % (37.0-53.0); Hemoglobin 10.5 g/dL (13.5-17.5); IMMATURE GRAN ABSOLUTE AUTO 0.25 K/mm3 (0.00-0.10); IMMATURE GRAN PERCENT AUTO 2 % (0-1); LYMPHOCYTES ABSOLUTE AUTO 1.19 K/mm3 (0.84-5.20); LYMPHOCYTES PERCENT AUTO 11 % (21-46); MONOCYTES PERCENT AUTO 12 % (4-13); Mean Corpuscular HGB 30.3 pg (26.0-34.0); Mean Corpuscular HGB Conc 34.1 g/dL (31.5-36.5); Mean Corpuscular Volume 89 fL (80-100); Mean Platelet Volume 10.2 fL (9.1-12.4); NEUTROPHILS ABSOLUTE AUTO 7.58 K/mm3 (1.96-9.15); NEUTROPHILS PERCENT AUTO 71 % (41-73); NRBC ABSOLUTE 0.02 K/mm3 (0.00-0.02); NRBC Auto 0.2 /100 WBC (0.0-0.2); Platelet Count 336 K/mm3 (150-400); RDW Coefficient Variation 15.1 % (11.7-14.2); RDW Standard Deviation 48.1 fL (35.1-46.3); Red Blood Cell Count 3.47 M/mm3 (4.30-5.90); White Blood Cell Count 10.66 K/mm3 (4.00-11.30)
[2022-09-24 13:32] LABS: Albumin/Globulin Ratio 0.9 (0.8-1.8); Bilirubin, Total 0.6 mg/dL (0.1-1.0); Bun/Creatinine Ratio 15.3 (12.0-20.0); Creatinine, Blood 3.59 mg/dL (0.60-1.20); Globulin, Blood 3.5 g/dL (2.2-4.0); Potassium, Blood 5.2 mmol/L (3.5-5.5); Total Protein, Blood 6.5 g/dL (6.4-8.2)
== END | disposition home or self-care (01) ==
LOC: LAB 13:12 → LAB SHORT 13:12
PROVIDERS: Chiropractor
DX: R06.00 Dyspnea, unspecified (principal); R42 Dizziness and giddiness
CPT/HCPCS: 80053; 83880; 84484; 85025

== ENCOUNTER → 2022-10-25 | Outpatient (CLI) | payer MEDICARE, OTHER ==
[~2022-10-25] MED LIST changes: +AMOX875 PO; +ATORVASTATIN CA80 M1 PO; +DULERA INH; +ELIQUIS2.5 M1 PO; +FLUOXETINE PO; +FURO80 PO; +Insulin Glargine-Yfg SC; +LOSARTAN POTAS100 M1 PO; +MIRAPEX0.125 MG PO; +Ventolin/Proventil INH
[2022-10-25 15:24] LABS: BASOPHILS PERCENT AUTO 1 % (0-2); EOSINOPHILS ABSOLUTE AUTO 0.71 K/mm3 (0.00-0.68); EOSINOPHILS PERCENT AUTO 7 % (0-6); Hematocrit 38.3 % (37.0-53.0); IMMATURE GRAN ABSOLUTE AUTO 0.05 K/mm3 (0.00-0.10); IMMATURE GRAN PERCENT AUTO 1 % (0-1); LYMPHOCYTES ABSOLUTE AUTO 1.28 K/mm3 (0.84-5.20); LYMPHOCYTES PERCENT AUTO 12 % (21-46); MONOCYTES ABSOLUTE AUTO 1.02 K/mm3 (0.16-1.47); MONOCYTES PERCENT AUTO 10 % (4-13); Mean Corpuscular HGB 29.6 pg (26.0-34.0); Mean Corpuscular HGB Conc 33.9 g/dL (31.5-36.5); Mean Corpuscular Volume 87 fL (80-100); Mean Platelet Volume 10.7 fL (9.1-12.4); NEUTROPHILS ABSOLUTE AUTO 7.23 K/mm3 (1.96-9.15); NEUTROPHILS PERCENT AUTO 70 % (41-73); Platelet Count 277 K/mm3 (150-400); RDW Coefficient Variation 14.5 % (11.7-14.2); RDW Standard Deviation 45.8 fL (35.1-46.3); Red Blood Cell Count 4.39 M/mm3 (4.30-5.90); White Blood Cell Count 10.39 K/mm3 (4.00-11.30)
[2022-10-25 15:44] LABS: Albumin, Blood 3.6 g/dL (3.4-5.0); Albumin/Globulin Ratio 0.9 (0.8-1.8); Bun/Creatinine Ratio 14.1 (12.0-20.0); Calcium, Blood 9.4 mg/dL (8.5-10.1); Creatinine, Blood 2.62 mg/dL (0.60-1.20); Globulin, Blood 3.8 g/dL (2.2-4.0); Magnesium, Blood 1.7 mg/dL (1.6-2.4); Potassium, Blood 4.1 mmol/L (3.5-5.5); Total Protein, Blood 7.4 g/dL (6.4-8.2)
== END ==
LOC: LAB 15:16 → LAB SHORT 15:16
PROVIDERS: Physician Assistant
DX: R06.00 Dyspnea, unspecified (principal)
CPT/HCPCS: 80053; 83735; 83880; 84484; 85025

== ENCOUNTER 2022-10-30 10:06 | Emergency (ER) | payer MEDICARE, OTHER ==
[~2022-10-30] VITALS: Ht 165.1 cm; Wt 72.6 kg
[2022-10-30 10:43] LABS: BASOPHILS ABSOLUTE AUTO 0.07 K/mm3 (0.00-0.23); BASOPHILS PERCENT AUTO 1 % (0-2); EOSINOPHILS ABSOLUTE AUTO 0.45 K/mm3 (0.00-0.68); EOSINOPHILS PERCENT AUTO 5 % (0-6); Hematocrit 37.9 % (37.0-53.0); Hemoglobin 12.4 g/dL (13.5-17.5); IMMATURE GRAN ABSOLUTE AUTO 0.02 K/mm3 (0.00-0.10); IMMATURE GRAN PERCENT AUTO 0 % (0-1); LYMPHOCYTES ABSOLUTE AUTO 1.56 K/mm3 (0.84-5.20); LYMPHOCYTES PERCENT AUTO 19 % (21-46); MONOCYTES ABSOLUTE AUTO 0.67 K/mm3 (0.16-1.47); MONOCYTES PERCENT AUTO 8 % (4-13); Mean Corpuscular HGB 28.8 pg (26.0-34.0); Mean Corpuscular HGB Conc 32.7 g/dL (31.5-36.5); Mean Corpuscular Volume 88 fL (80-100); Mean Platelet Volume 10.7 fL (9.1-12.4); NEUTROPHILS ABSOLUTE AUTO 5.61 K/mm3 (1.96-9.15); NEUTROPHILS PERCENT AUTO 67 % (41-73); Platelet Count 256 K/mm3 (150-400); RDW Coefficient Variation 14.2 % (11.7-14.2); RDW Standard Deviation 45.8 fL (35.1-46.3); Red Blood Cell Count 4.31 M/mm3 (4.30-5.90); White Blood Cell Count 8.38 K/mm3 (4.00-11.30)
[2022-10-30] MEDS ORDERED: ALBU90OI INH (10:44)
[2022-10-30] MEDS ORDERED: ELIQUIS2.5 MG PO (10:45)
[2022-10-30] MEDS ORDERED: HUMALOG JU100 UNIT/2 SC (10:47)
[2022-10-30] MEDS ORDERED: LOSARTAN POTASS25 M2 PO (10:48)
[2022-10-30] MEDS ORDERED: KLOR-CON 1010 ME9 PO (10:50)
[2022-10-30 11:47] LABS: Potassium, Blood 4.4 mmol/L (3.5-5.5)
[2022-10-30 11:48] LABS: Albumin, Blood 3.4 g/dL (3.4-5.0); Albumin/Globulin Ratio 0.9 (0.8-1.8); Bilirubin, Total 0.7 mg/dL (0.1-1.0); Bun/Creatinine Ratio 17.2 (12.0-20.0); Calcium, Blood 9.1 mg/dL (8.5-10.1); Creatinine, Blood 1.98 mg/dL (0.60-1.20); Globulin, Blood 3.7 g/dL (2.2-4.0); Total Protein, Blood 7.1 g/dL (6.4-8.2)
[2022-10-30] MEDS ORDERED: PRED20 PO (12:37)
[2022-10-30] MEDS ORDERED: AZIT250 PO (12:37)
[2022-10-30 13:00] VITALS: BP 136/72
== END 2022-10-30 13:00 | disposition home or self-care (01) ==
LOC: ER 10:06
PROVIDERS: Emergency Medicine
DX: J44.0 Chronic obstructive pulmonary disease with (acute) lower respiratory infection (principal); J18.9 Pneumonia, unspecified organism; J44.1 Chronic obstructive pulmonary disease with (acute) exacerbation; I25.10 Atherosclerotic heart disease of native coronary artery without angina pectoris; E11.9 Type 2 diabetes mellitus without complications; I11.0 Hypertensive heart disease with heart failure; I50.22 Chronic systolic (congestive) heart failure; Z87.891 Personal history of nicotine dependence; E78.5 Hyperlipidemia, unspecified; I48.91 Unspecified atrial fibrillation
CPT/HCPCS: 71046; 80053; 83735; 83880; 84484; 85025; 93005; 93010; 96374; 99284-25; A9270; J2930

== ENCOUNTER 2023-01-15 11:38 | Day surgery (SDC) | payer MEDICARE, OTHER ==
[~2023-01-15] VITALS: Ht 170.2 cm; Wt 75.6 kg
[~2023-01-15 11:38] MED LIST changes: +AZIT250 PO; +HUMALOG JU100 UNIT/2 SC; +KLOR-CON 1010 ME9 PO; +LOSARTAN POTASS25 M2 PO
[2023-01-15 14:57] VITALS: BP 138/76
--- NOTE | 2023-01-15 14:57 | NUR ---
01/15/23 1457 TEJINDER MELENDEZ PT ON 3L O2 CONTINUOUS PRIOR TO ADMIT TO [facility]. PT ON 3L O2 NOW WELL. O2 CURRENTLY 99% - NASAL CANULA
== END 2023-01-15 15:37 | disposition home or self-care (01) ==
LOC: ORSCSDS 11:38
PROVIDERS: Orthopaedic Surgery
PROC: 01N50ZZ Release Median Nerve, Open Approach (ICD-10-PCS; principal; 2023-01-15 13:00)
DX: G56.01 Carpal tunnel syndrome, right upper limb (principal); I25.10 Atherosclerotic heart disease of native coronary artery without angina pectoris; J44.9 Chronic obstructive pulmonary disease, unspecified; E78.5 Hyperlipidemia, unspecified; I48.0 Paroxysmal atrial fibrillation; I12.9 Hypertensive chronic kidney disease with stage 1 through stage 4 chronic kidney disease, or unspecified chronic kidney disease; E11.22 Type 2 diabetes mellitus with diabetic chronic kidney disease; N18.30 Chronic kidney disease, stage 3 unspecified; Z79.01 Long term (current) use of anticoagulants; Z79.4 Long term (current) use of insulin; Z79.899 Other long term (current) drug therapy; Z99.81 Dependence on supplemental oxygen; I25.2 Old myocardial infarction; K21.9 Gastro-esophageal reflux disease without esophagitis
CPT/HCPCS: 82947; A9270; J0690; J7120

== ENCOUNTER 2023-02-25 13:03 | Inpatient (IN) | payer MEDICARE, OTHER ==
[~2023-02-25] VITALS: Ht 170.2 cm; Wt 70.4 kg
[~2023-02-25 13:03] MED LIST changes: -COLCHICINE0.6 MG PO; -FEBU40TA PO
[2023-02-25 14:24] LABS: BASOPHILS ABSOLUTE AUTO 0.05 K/mm3 (0.00-0.23); BASOPHILS PERCENT AUTO 1 % (0-2); EOSINOPHILS ABSOLUTE AUTO 0.28 K/mm3 (0.00-0.68); EOSINOPHILS PERCENT AUTO 3 % (0-6); Hemoglobin 11.1 g/dL (13.5-17.5); IMMATURE GRAN ABSOLUTE AUTO 0.07 K/mm3 (0.00-0.10); IMMATURE GRAN PERCENT AUTO 1 % (0-1); LYMPHOCYTES ABSOLUTE AUTO 0.72 K/mm3 (0.84-5.20); LYMPHOCYTES PERCENT AUTO 7 % (21-46); MONOCYTES ABSOLUTE AUTO 1.19 K/mm3 (0.16-1.47); MONOCYTES PERCENT AUTO 11 % (4-13); Mean Corpuscular HGB 27.4 pg (26.0-34.0); Mean Corpuscular HGB Conc 33.6 g/dL (31.5-36.5); Mean Corpuscular Volume 82 fL (80-100); Mean Platelet Volume 10.1 fL (9.1-12.4); NEUTROPHILS ABSOLUTE AUTO 8.45 K/mm3 (1.96-9.15); NEUTROPHILS PERCENT AUTO 78 % (41-73); Platelet Count 408 K/mm3 (150-400); RDW Coefficient Variation 15.7 % (11.7-14.2); RDW Standard Deviation 46.3 fL (35.1-46.3); Red Blood Cell Count 4.05 M/mm3 (4.30-5.90); White Blood Cell Count 10.76 K/mm3 (4.00-11.30)
[2023-02-25 14:30] LABS: Albumin, Blood 2.4 g/dL (3.4-5.0); Albumin/Globulin Ratio 0.6 (0.8-1.8); Bilirubin, Total 0.7 mg/dL (0.1-1.0); Bun/Creatinine Ratio 32.5 (12.0-20.0); Calcium, Blood 9.5 mg/dL (8.5-10.1); Creatinine, Blood 1.91 mg/dL (0.60-1.20); Globulin, Blood 4.3 g/dL (2.2-4.0); International Normalized Ratio 1.32; Potassium, Blood 3.9 mmol/L (3.5-5.5); Prothrombin Time Results 13.6 Sec (9.7-11.5); Total Protein, Blood 6.7 g/dL (6.4-8.2)
[2023-02-25 15:21] LABS: Magnesium, Blood 2.1 mg/dL (1.6-2.4)
[2023-02-25 16:19] LABS: Source, Urine Clean Catch
[2023-02-25 16:24] LABS: Appearance, Urine Clear (Clear); Bilirubin, Urine Neg (Neg); Blood, Urine 1+ (Neg); Color, Urine Yellow (P-Yellow); Glucose Qualitative, Urine 3+ (Neg); Ketones, Urine Neg (Neg); Leukocyte Esterase, Urine Neg (Neg); Nitrite, Urine Neg (Neg); Protein, Urine 1+ (Neg); Specific Gravity, Urine 1.015 (1.003-1.022); Urobilinogen, Urine NORM (Normal)
[2023-02-25 16:38] LABS: White Blood Cells, Urine 0-2 /hpf (0-5)
[2023-02-25 16:39] LABS: Bacteria Few /hpf; Squamous Epithelial Cells Not Seen /hpf (Few)
[2023-02-25 20:33] VITALS: BP 122/51
[2023-02-25 21:33] LABS: SARS-Cov-2 (COVID-19) PCR, MMC NEGATIVE (NEGATIVE)
[2023-02-25 23:20] VITALS: BP 114/82
--- NOTE | 2023-02-26 00:59 | NUR ---
PT MOVED TO U 09 DUE TO PULLINE OUT IV'S AND CLIMBING OUT OF BED WITHOUT CALLING FOR ASSITANCE. ALSO, THE PT HAS BEEN TAKING OFF HIS CPAP.
[2023-02-26 03:43] VITALS: BP 97/82
[2023-02-26 04:00] LABS: BASOPHILS ABSOLUTE AUTO 0.06 K/mm3 (0.00-0.23); BASOPHILS PERCENT AUTO 1 % (0-2); EOSINOPHILS ABSOLUTE AUTO 0.95 K/mm3 (0.00-0.68); EOSINOPHILS PERCENT AUTO 8 % (0-6); Hematocrit 34.2 % (37.0-53.0); Hemoglobin 11.5 g/dL (13.5-17.5); IMMATURE GRAN ABSOLUTE AUTO 0.06 K/mm3 (0.00-0.10); IMMATURE GRAN PERCENT AUTO 1 % (0-1); LYMPHOCYTES ABSOLUTE AUTO 1.02 K/mm3 (0.84-5.20); LYMPHOCYTES PERCENT AUTO 9 % (21-46); MONOCYTES ABSOLUTE AUTO 0.99 K/mm3 (0.16-1.47); MONOCYTES PERCENT AUTO 9 % (4-13); Mean Corpuscular HGB 27.3 pg (26.0-34.0); Mean Corpuscular HGB Conc 33.6 g/dL (31.5-36.5); Mean Corpuscular Volume 81 fL (80-100); Mean Platelet Volume 10.3 fL (9.1-12.4); NEUTROPHILS ABSOLUTE AUTO 8.25 K/mm3 (1.96-9.15); NEUTROPHILS PERCENT AUTO 73 % (41-73); Platelet Count 442 K/mm3 (150-400); RDW Coefficient Variation 15.7 % (11.7-14.2); RDW Standard Deviation 45.8 fL (35.1-46.3); Red Blood Cell Count 4.22 M/mm3 (4.30-5.90); White Blood Cell Count 11.33 K/mm3 (4.00-11.30)
[2023-02-26 04:18] LABS: Bun/Creatinine Ratio 34.7 (12.0-20.0); Calcium, Blood 9.9 mg/dL (8.5-10.1); Creatinine, Blood 1.9 mg/dL (0.60-1.20); Potassium, Blood 3.9 mmol/L (3.5-5.5)
--- NOTE | 2023-02-26 06:11 | NUR ---
SHIFT SUMMARY PT IS WAS A&OX4 AT THE START OF THE SHIFT WHEN AWAKE. THE SHIFT WHEN ON HE BECAME RESTLESS, GETTING OUT OF BED, PULLED AN IV, AND KEPT TAKING OFF HIS OXYGEN. THE PT COULD BE OWNING. 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 PT IS VERY PLEASENT. ON TELE HE HAS BEEN AFIB 110'S-130'S, ABD BP IS SOFT BUT STABLE. HE IS ON AN AMIO GTT. PT WEARS 3L AT BASELINE AND CPAP AT NIGHT FOR SHAILESH. BED ALARM ON. RAMIN IGNITION RISK HAS BEEN ASSESSED.
[2023-02-26 07:47] VITALS: BP 122/80
[2023-02-26 10:30] VITALS: BP 106/83
--- NOTE | 2023-02-26 10:58 | NUR ---
"Spiritual Care | Pt. Request Pt. is awake in bed and welcomes my visit. Pt. is pleasant. Facilitated a life review and established rapport. Listened with interest, empathy and a calming presence. Pt. displays a joyful disposition and verbalizes his hope to be discharged home once he is cleared by the doctors. Considered matters of sara and practice. Prayed with Pt. Pt. verbalized gratitude for the spiritual care visit."
[2023-02-26 13:06] VITALS: BP 102/56
[2023-02-26 15:27] VITALS: BP 94/71
--- NOTE | 2023-02-26 16:57 | NUR ---
shift summary/transfer of care patient tele afib 100-140s throughout this shift. patient received two 5mg iv lopressor push, see emar and orders, for heart rating sustaining greater than 130. patient amio drip will be completed at 2005. patient heart rate now afib 100-110. patient is alert and oriented x4, and uses call light appropriately to make needs known. patient reports no chest pain/pressure, pain, or shortness of breath. see shift assessment for further detials. md whaley and md dejesus in to see patient today. discussed plan of care with patient. plan of care is up to date. this rn gave report to silvina ledezma.
--- NOTE | 2023-02-26 16:58 | NUR ---
Ambulatory with stand by assistance and using geriwalker to walk to bathroom for BM. tolerated well, with heart rate 109-125 bpm and no noted dyspnea.
--- NOTE | 2023-02-26 17:00 | NUR ---
Bedside report received from Nimco Jiang RN. The pt is pleasantly conversant and alert and oriented. Able to make his needs known, and verbalized that he knew how to use the call light.
--- NOTE | 2023-02-26 17:08 | NUR ---
Had BM WNL; ambulatory back to the side of the bed, heart rate max 122 bpm and some mild dyspnea noted with the activity.
--- NOTE | 2023-02-26 20:11 | NUR ---
AMNIODERONE GTT COMPLETED.
[2023-02-26 20:34] VITALS: BP 107/74
--- NOTE | 2023-02-26 23:18 | NUR ---
ASSUMED PT CARE FROM TARAS COATES ON DAYSHI. PT IS A&OX4. PLEASANT AND COOPERATIVE. DENIES ANY SOB, O2 SATS 3 LPM VIA NC WHICH IS THE PT'S BASELINE. HR A-FIB IN THE 110'S. DENIES CHEST PAIN. BP STABLE, SEE RECORDED VITAL SIGNS. DENIES NAUSEA. EVENING BLOOD SUGAR 71, SNACK GIVEN. DR. LOWE INFORMED, INSTRUCTED TO HOLD LONG ACTING INSULIN THIS EVENING, AWARE OF YESTERDAYS BLOOD SUGAR BEING HIGH. WILL MONITOR. PT RESTING IN BED. CALL LIGHT IN REACH. BED IN LOW POSITION.
[2023-02-27] VITALS (7 sets, daily range): BP systolic 83–101; BP diastolic 52–65
--- NOTE | 2023-02-27 06:30 | NUR ---
SHIFT SUMMARY: PT SLEEPING THROUGH MOST OF SHIFT, TOLERATING WEARING BIPAP MASK. STARTS INITIALLY WHEN WAKING BUT APPROPRIATE ORIENTATION. PO AMIODERONE STARTED DURING THIS SHIFT. BP'S SOFT WHEN SLEEPING, MAP > 65. HAS NOT ATTEMPTED TO GET UP WITHOUT ASSISTANCE DURING THIS SHIFT. CALL LIGHT IN REACH. BED IN LOW POSITION. BED ALARM ON.
[2023-02-27 08:03] LABS: BASOPHILS ABSOLUTE AUTO 0.08 K/mm3 (0.00-0.23); BASOPHILS PERCENT AUTO 1 % (0-2); EOSINOPHILS ABSOLUTE AUTO 1.23 K/mm3 (0.00-0.68); EOSINOPHILS PERCENT AUTO 12 % (0-6); Hematocrit 33.3 % (37.0-53.0); Hemoglobin 11.1 g/dL (13.5-17.5); IMMATURE GRAN ABSOLUTE AUTO 0.05 K/mm3 (0.00-0.10); IMMATURE GRAN PERCENT AUTO 1 % (0-1); LYMPHOCYTES ABSOLUTE AUTO 1.08 K/mm3 (0.84-5.20); LYMPHOCYTES PERCENT AUTO 11 % (21-46); MONOCYTES PERCENT AUTO 9 % (4-13); Mean Corpuscular HGB Conc 33.3 g/dL (31.5-36.5); Mean Corpuscular Volume 81 fL (80-100); NEUTROPHILS ABSOLUTE AUTO 6.78 K/mm3 (1.96-9.15); NEUTROPHILS PERCENT AUTO 67 % (41-73); Platelet Count 416 K/mm3 (150-400); RDW Coefficient Variation 15.9 % (11.7-14.2); RDW Standard Deviation 46.5 fL (35.1-46.3); Red Blood Cell Count 4.11 M/mm3 (4.30-5.90); White Blood Cell Count 10.12 K/mm3 (4.00-11.30)
[2023-02-27 08:29] LABS: Albumin, Blood 2.3 g/dL (3.4-5.0); Albumin/Globulin Ratio 0.6 (0.8-1.8); Bilirubin, Total 0.5 mg/dL (0.1-1.0); Bun/Creatinine Ratio 33.2 (12.0-20.0); Calcium, Blood 9.6 mg/dL (8.5-10.1); Creatinine, Blood 1.9 mg/dL (0.60-1.20); Globulin, Blood 3.9 g/dL (2.2-4.0); Phosphorus, Blood 3.3 mg/dL (2.5-4.9); Potassium, Blood 3.7 mmol/L (3.5-5.5); Total Protein, Blood 6.2 g/dL (6.4-8.2)
--- NOTE | 2023-02-27 12:58 | NUR ---
PT CONVERTED FROM A-FIB TO SINUS RHYTHM THIS AM AROUND 0800, HE HAS REMAINED IN SR SINCE. PT'S AFTERNOON BLOOD SUGAR WAS 301 HE WAS COVERED WITH 12UNITS REGULAR INSULIN. PT HAS BEEN MADE MEDICAL STATUS WITH TELE, PT IS CURRENTLY AWAITING MEDICAL FLOOR BED.
--- NOTE | 2023-02-27 16:24 | NUR ---
REPORT WAS CALLED TO MEDICAL FLOOR, UPON CHECKING VITALS PT'S BP WAS NOTED TO BE 85/52 WITH A MAP OF 63. PT IS ASYMPTOMATIC WITH THIS PRESSURE, BUT METOPROLOL AND AMIODERONE WAS HELD AT THIS TIME. DECISION WAS MADE TO HOLD PT IN PCU AND NOT SEND TO MEDICAL FLOOR. PT OTHERWISE A/O X3. ANSWERING QUESTIONS APPROPRIATELY IN FULL SENTENCES. DENIES CP OR SOB T/O THE DAY. BLOOD PRESSURES HAVE BEEN SOFT T/O THE DAY. DR RAMOS HAS SEEN PT TODAY AND DX WITH GOUT OF THE RT FOOT
--- NOTE | 2023-02-27 17:17 | NUR ---
THIS RN ASSUMED CARE AT 1620. PATIENT ALERT AND ORIENTED AND IN GOOD SPIRITS. DENIES NUMBNESS/TINGLING. ONE PERSON ASSIST WITH WALKER TO STAND AND USE URINAL. TELE SHOWING SR WITH HR 70'S. DENIES CHEST PAIN/PRESSURE. BLOOD PRESSURE IMPROVED 101/58, PO AMIO GIVEN PER EMAR. PPP. WEARING 3L NASAL CANNULA SATING 96-98%. CPAP AT BEDSIDE. DENIES SOB. EVEN AND UNLABORED RESPIRATIONS. EATING DINNER AT THIS TIME. CBG TAKEN AND INSULIN GIVEN PER EMAR. NO SWALLOWING ISSUES NOTED. ATTENDS C/D/I. ABDOMIN DISTENDED. PATIENT DENIES ABDOMINAL PAIN/NAUSEA. SKIN OVERALL C/D/I. DENIES PAIN IN RIGHT FOOT. DNR BAND ON RIGTH WRIST. PATIENT SITTING ON EDGE OF BED EATING DINNER AT THIS TIME. DENIES NEEDS. IV FLUSHED AND SALINE LOCKED.
--- NOTE | 2023-02-27 19:43 | NUR ---
ASSUMED PT CARE FROM MELANY COATES ON . PT A&OX3. SITTING AT SOB USING IPAD. DENIES ANY DIZZIENESS WHEN SITTING UP. BP'S SOFT WITH MAP > 65. DENIES CHEST PAIN/PRESSURE. HR SR 70'S AT THIS TIME. DENIES FEEL SOB, O2 SATS > 92% ON 3 LPM VIA NC, BASELINE PER PT. DENIES NAUSEA. DENIES NEEDS AT THIS TIME. CALL LIGHT IN REACH. BED IN LOW POSITION. BED ALARM ON.
[2023-02-28 00:47] VITALS: BP 108/62
[2023-02-28 03:41] LABS: BASOPHILS ABSOLUTE AUTO 0.09 K/mm3 (0.00-0.23); BASOPHILS PERCENT AUTO 1 % (0-2); EOSINOPHILS ABSOLUTE AUTO 1.09 K/mm3 (0.00-0.68); EOSINOPHILS PERCENT AUTO 8 % (0-6); Hematocrit 33.8 % (37.0-53.0); Hemoglobin 11.2 g/dL (13.5-17.5); IMMATURE GRAN ABSOLUTE AUTO 0.08 K/mm3 (0.00-0.10); IMMATURE GRAN PERCENT AUTO 1 % (0-1); LYMPHOCYTES ABSOLUTE AUTO 1.13 K/mm3 (0.84-5.20); LYMPHOCYTES PERCENT AUTO 9 % (21-46); MONOCYTES ABSOLUTE AUTO 1.17 K/mm3 (0.16-1.47); MONOCYTES PERCENT AUTO 9 % (4-13); Mean Corpuscular HGB 27.4 pg (26.0-34.0); Mean Corpuscular HGB Conc 33.1 g/dL (31.5-36.5); Mean Corpuscular Volume 83 fL (80-100); Mean Platelet Volume 10.3 fL (9.1-12.4); NEUTROPHILS ABSOLUTE AUTO 9.55 K/mm3 (1.96-9.15); NEUTROPHILS PERCENT AUTO 73 % (41-73); Platelet Count 497 K/mm3 (150-400); RDW Coefficient Variation 15.9 % (11.7-14.2); RDW Standard Deviation 47.7 fL (35.1-46.3); Red Blood Cell Count 4.09 M/mm3 (4.30-5.90); White Blood Cell Count 13.11 K/mm3 (4.00-11.30)
[2023-02-28 03:58] LABS: Albumin, Blood 2.5 g/dL (3.4-5.0); Albumin/Globulin Ratio 0.6 (0.8-1.8); Bilirubin, Total 0.4 mg/dL (0.1-1.0); Bun/Creatinine Ratio 30.8 (12.0-20.0); Calcium, Blood 9.7 mg/dL (8.5-10.1); Creatinine, Blood 2.5 mg/dL (0.60-1.20); Globulin, Blood 4.2 g/dL (2.2-4.0); Magnesium, Blood 2.2 mg/dL (1.6-2.4); Phosphorus, Blood 4.1 mg/dL (2.5-4.9); Potassium, Blood 4.2 mmol/L (3.5-5.5); Total Protein, Blood 6.7 g/dL (6.4-8.2)
[2023-02-28 04:03] VITALS: BP 98/74
[2023-02-28 08:00] VITALS: BP 112/59
[2023-02-28 11:29] VITALS: BP 131/67
[2023-02-28 11:33] VITALS: BP 131/67
[2023-02-28] MEDS ORDERED: COLCHICINE0.6 MG PO (14:58)
[2023-02-28] MEDS ORDERED: FEBU40TA PO (14:58)
== END 2023-02-28 16:30 | disposition home or self-care (01) | DRG 308 ==
LOC: ER 13:03 → PCU 13:04
PROVIDERS: Emergency Medicine; Internal Medicine; Nurse Practitioner Acute Care; Student in an Organized Health Care Education/Training Program; ADMIT Internal Medicine
DX: I48.0 Paroxysmal atrial fibrillation (principal); G92.8 Other toxic encephalopathy; I13.0 Hypertensive heart and chronic kidney disease with heart failure and stage 1 through stage 4 chronic kidney disease, or unspecified chronic kidney disease; J96.11 Chronic respiratory failure with hypoxia; I50.42 Chronic combined systolic (congestive) and diastolic (congestive) heart failure; J44.9 Chronic obstructive pulmonary disease, unspecified; E11.22 Type 2 diabetes mellitus with diabetic chronic kidney disease; N18.30 Chronic kidney disease, stage 3 unspecified; Z66 Do not resuscitate; I25.10 Atherosclerotic heart disease of native coronary artery without angina pectoris; E11.65 Type 2 diabetes mellitus with hyperglycemia; I08.1 Rheumatic disorders of both mitral and tricuspid valves; Z20.822 Contact with and (suspected) exposure to COVID-19; E78.5 Hyperlipidemia, unspecified; Z95.1 Presence of aortocoronary bypass graft; Z90.49 Acquired absence of other specified parts of digestive tract; Z98.890 Other specified postprocedural states; Z87.442 Personal history of urinary calculi; Z87.891 Personal history of nicotine dependence; Z91.81 History of falling; Z90.89 Acquired absence of other organs; Z88.5 Allergy status to narcotic agent; Z88.8 Allergy status to other drugs, medicaments and biological substances; Z79.4 Long term (current) use of insulin; Z79.01 Long term (current) use of anticoagulants; Z79.899 Other long term (current) drug therapy
CPT/HCPCS: 36415; 70450; 71046; 73564; 73630; 80048; 80053; 81001; 82947; 83605; 83690; 83735; 83880; 84100; 84145; 84484; 84550; 85025; 85610; 85651; 86140; 87040; 93005; 93010; 94640; 94660; 94664; 94762; 96374; 96375; 96376; 99285-25; A9270; G0378; J0282; J1815; J7060; U0002

== ENCOUNTER → 2023-02-25 | Outpatient (CLI) | payer MEDICARE, OTHER ==
[~2023-02-25] MED LIST changes: +COLCHICINE0.6 MG PO; +FEBU40TA PO
[2023-02-25 12:55] LABS: BASOPHILS ABSOLUTE AUTO 0.06 K/mm3 (0.00-0.23); BASOPHILS PERCENT AUTO 1 % (0-2); EOSINOPHILS ABSOLUTE AUTO 0.22 K/mm3 (0.00-0.68); EOSINOPHILS PERCENT AUTO 2 % (0-6); Hematocrit 35.4 % (37.0-53.0); IMMATURE GRAN ABSOLUTE AUTO 0.06 K/mm3 (0.00-0.10); IMMATURE GRAN PERCENT AUTO 1 % (0-1); LYMPHOCYTES ABSOLUTE AUTO 0.64 K/mm3 (0.84-5.20); LYMPHOCYTES PERCENT AUTO 6 % (21-46); MONOCYTES ABSOLUTE AUTO 1.21 K/mm3 (0.16-1.47); MONOCYTES PERCENT AUTO 10 % (4-13); Mean Corpuscular HGB 27.3 pg (26.0-34.0); Mean Corpuscular HGB Conc 33.9 g/dL (31.5-36.5); Mean Corpuscular Volume 81 fL (80-100); NEUTROPHILS ABSOLUTE AUTO 9.44 K/mm3 (1.96-9.15); NEUTROPHILS PERCENT AUTO 81 % (41-73); Platelet Count 415 K/mm3 (150-400); RDW Coefficient Variation 15.8 % (11.7-14.2); White Blood Cell Count 11.63 K/mm3 (4.00-11.30)
[2023-02-25 13:05] LABS: Albumin, Blood 2.6 g/dL (3.4-5.0); Albumin/Globulin Ratio 0.6 (0.8-1.8); Bilirubin, Total 0.7 mg/dL (0.1-1.0); Bun/Creatinine Ratio 26.3 (12.0-20.0); Calcium, Blood 10.3 mg/dL (8.5-10.1); Creatinine, Blood 2.59 mg/dL (0.60-1.20); Globulin, Blood 4.7 g/dL (2.2-4.0); Total Protein, Blood 7.3 g/dL (6.4-8.2)
== END | disposition home or self-care (01) ==
LOC: LAB 12:51 → LAB SHORT 12:51
PROVIDERS: Physician Assistant
DX: E11.9 Type 2 diabetes mellitus without complications (principal)
CPT/HCPCS: 80053; 85025